=== PATIENT | female | born 1955 | race Caucasian/White ===

== ENCOUNTER 2023-03-18 12:45 | Outpatient (OUT) | payer OTHER, SELFPAY ==
--- NOTE | 2023-03-18 12:56 | PM.CN ---
Consult Note: HPI Data of Consult Patient: new to practice Requesting Physician: Pascale Joe NP Primary Care Provider: FELIBERTO RODRIGUEZ Consult Narrative Reason for consult: New Patient Narrative: Marcela Santiago a pleasant 68 year old female presents for evaluation and management of chronic low back pain. Patient noticed chronic low back pain worsening over the last few weeks. She went to her family doctor who gave her a steroid and muscle relaxer, she responded well to the steroid but no relief from the muscle relaxer. Today rating pain 5-6/10 in low back, worse on the right side, with bilateral leg weakness and intermittent radiculopathy. cc:: CC: Pascale Joe NP Review of Systems ROS Status of ROS 10 or more systems reviewed and unremarkable except as noted in history and below Musculoskeletal Reports: back pain Exam Constitutional Documenting provider has reviewed patient's vital signs: yes Common normals: no apparent distress, oriented x3, healthy appearing, alert and well nourished General appearance: cooperative HENMT Common normals: normocephalic, hearing grossly normal bilaterally and moist oral mucous membranes Head and scalp: normocephalic Eye Common normals: PERRL Pupil: PERRL Neck & C-Spine Common normals: full ROM General: normal visual inspection Chest Common normals: inspection of chest normal Respiratory Common normals: normal respiratory effort, no retractions and no use of accessory muscles Back & Pelvis Common normals: no thoracic nor lumbar tenderness Thoracic spine/upper back: normal to inspection and thoracic ROM normal Lumbar spine/lower back: normal to inspection, ROM limited, pain with ROM and straight leg raise negative bilaterally Sacroiliac joints: SI joints normal Other: negative facet loading no radiculopathy upon exam BLE 5/5 Neuro Common normals: oriented x3, CN's II-XII intact bilaterally, moves all extremities, no focal motor deficits, no sensory deficits noted and deep tendon reflexes 2+ bilaterally Sensorium/orientation: alert Motor exam: strength 5/5 throughout and no movement abnormalities noted Psych Common normals: mental status grossly normal, thought process normal, cooperative, affect normal, speech normal and activity/motor behavior normal Speech: normal speech Thought process: normal thought process Assessment and Plan Assessment and Plan (1) Low back pain: (2) Lumbar spondylosis: (3) Osteoarthritis of spine with radiculopathy, lumbar region: (4) Encounter for medication monitoring: (5) Obesity: Assessment and Plan: The patient was counseled that proper dietary changes and consistent participation in a home exercise plan can lead to weight loss. Weight loss can help to improve functionality in patients with chronic pain.? (6) GERD (gastroesophageal reflux disease): Plan -PT for low back pain with radiculopathy -consider MRI in the future if fails to respond to PT, will review xray from PCP when made available. 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
== END 2023-03-18 12:46 | disposition home or self-care (01) ==
LOC: PM 12:46
PROVIDERS: PCP Family Medicine; Visit Provider Nurse Practitioner
DX: M54.50 Low back pain, unspecified (principal); M47.26 Other spondylosis with radiculopathy, lumbar region; Z51.81 Encounter for therapeutic drug level monitoring; Z79.899 Other long term (current) drug therapy; E66.9 Obesity, unspecified; K21.9 Gastro-esophageal reflux disease without esophagitis
CPT/HCPCS: G0463

== ENCOUNTER 2023-05-12 13:11 | Outpatient (OUT) | payer OTHER, SELFPAY ==
--- NOTE | 2023-05-12 13:28 | P.CN_ITS ---
Consult Note: HPI Data of Consult Patient: new to practice Requesting Physician: Pascale Joe NP Primary Care Provider: FELIBERTO RODRIGUEZ Consult Narrative Reason for consult: f/u Narrative: Marcela Santiago a pleasant 68 year old female presents for evaluation and management of chronic pain. Pain has greatly improved with PT and is now longer in low back or right thigh, at this time she notices mild 3/10 pain in right buttock ache . Pain is worse in the evening, improved with stretching and tylenol. cc:: CC: Pascale Joe NP Review of Systems 2 ROS0 Status of ROS 10 or more systems reviewed and unremark able except as noted in history and below PFSH PFSH Medical History Heartburn ?R12 - Heartburn (ICD-10) Anxiety ?F41.9 - Anxiety disorder, unspecified (ICD-10) Kidney stones ?N20.0 - Calculus of kidney (ICD-10) Surgical History History of foot surgery ?Z98.890 - Other specified postprocedural states (ICD-10) Hx of cholecystectomy ?Z90.49 - Acquired absence of other specified parts of digestive tract (ICD- 10) History of appendectomy ?Z90.49 - Acquired absence of other specified parts of digestive tract (ICD- 10) History of knee replacement ?Z96.659 - Presence of unspecified artificial knee joint (ICD-10) Meds Home Medications and Allergies Home Medications Medication Instructions Recorded Confirmed Type alendronate 70 mg tablet 70 mg PO QWEEK 03/19/23 03/19/23 History buspirone 5 mg tablet 5 mg PO BID 03/19/23 03/19/23 History cholecalciferol (vitamin D3) 125 5,000 unit PO DAILY 03/19/23 03/19/23 History mcg (5,000 unit) tablet (Vitamin D3) lisinopril 20 mg tablet 10 mg PO BID 03/19/23 03/19/23 History Allergies Allergy/AdvReac Type Severity Reaction Status Date / Time No Known Drug Allergies Allergy Verified 03/19/23 10:16 Exam Constitutional Documenting provider has reviewed patient's vital signs: yes Common normals: no apparent distress, oriented x3, healthy appearing, alert and well nourished General appearance: cooperative [facility] Common normals: normocephalic, hearing grossly normal bilaterally and moist oral mucous membranes Head and scalp: normocephalic Eye Common normals: PERRL Pupil: PERRL Neck & C-Spine Common normals: full ROM General: normal visual inspection Chest Common normals: inspection of chest normal Respiratory Common normals: normal respiratory effort, no retractions and no use of accessory muscles Back & Pelvis Common normals: no thoracic nor lumbar tenderness Thoracic spine/upper back: normal to inspection and thoracic ROM normal Lumbar spine/lower back: normal to inspection, ROM limited and straight leg raise negative bilaterally Sacroiliac joints: SI joints normal Other: negative facet loading no radiculopathy upon exam BLE 5/5 Back image (female): 2 1. Extremity Common normals: normal to inspection and full ROM Neuro Common normals: oriented x3, CN's II-XII intact bilaterally, moves all extremities, no focal motor deficits, no sensory deficits noted, deep tendon reflexes 2+ bilaterally and gait normal Sensorium/orientation: alert Motor exam: strength 5/5 throughout and no movement abnormalities noted Psych Common normals: mental status grossly normal, thought process normal, cooperative, affect normal, speech normal and activity/motor behavior normal Speech: normal speech Thought process: normal thought process Assessment and Plan Assessment and Plan (1) Neuritis: Assessment and Plan: right middle cluneal nerve neuropathy (2) GERD (gastroesophageal reflux disease): (3) Obesity: (4) Lumbar spondylosis: (5) Lumbar radiculopathy: Plan continue PT and HEP continue PRN tylenol f/u PRN or if pain worsens/returns
== END 2023-05-12 13:12 | disposition home or self-care (01) ==
PROVIDERS: PCP Family Medicine; Visit Provider Nurse Practitioner
DX: M79.2 Neuralgia and neuritis, unspecified (principal); K21.9 Gastro-esophageal reflux disease without esophagitis; E66.9 Obesity, unspecified; M47.816 Spondylosis without myelopathy or radiculopathy, lumbar region; M54.16 Radiculopathy, lumbar region
CPT/HCPCS: G0463

== ENCOUNTER 2023-09-30 11:41 | Outpatient (OUT) | payer OTHER, SELFPAY ==
--- NOTE | 2023-09-30 11:43 | MM_ITS ---
Patient Name: IAN MONACO MR#: [id number] : 1955 Exam Date: 09/30/2023 Ordering Doctor: DR FELIBERTO RODRIGUEZ M.D. RADIOLOGY REPORT PROCEDURE: MM TOMOSYNTHESIS SCREENING BI COMPARISON: MG MAMM SCREEN 3D ANA ROSA CAD, 11/12/2020. MG MAMM SCREEN ANA ROSA W CAD, 11/02/2019. MG MAMM SCREEN ANA ROSA W CAD, 11/30/2017. MG MAMM ANA ROSA SCRN W CAD DIG, 10/25/2006. INDICATIONS: Screening Calculator Name NCI Breast Cancer Risk Assessment Tool 5 Year Breast Cancer Risk 1.90% Lifetime Breast Cancer Risk 6.20% Personal Breast Cancer No Personal Ovarian Cancer No Treatments None Family Cancers Grandmother-paternal with breast cancer at age 99; Father with lung cancer at age 42. LOCATION: [facility] BREAST COMPOSITION: There are scattered areas of fibroglandular density. FINDINGS: DIAGNOSTIC CATEGORY 2--BENIGN FINDING: RIGHT BREAST: No significant suspicious finding. Scattered benign-appearing lymph nodes are present. No significant change has occurred. LEFT BREAST: No significant suspicious finding. Scattered benign-appearing lymph nodes are present. No significant change has occurred. RECOMMENDATIONS: ROUTINE MAMMOGRAM AND CLINICAL EVALUATION IN 12 MONTHS. PLEASE NOTE: A NORMAL MAMMOGRAM DOES NOT EXCLUDE THE POSSIBILITY OF BREAST CANCER. A CLINICALLY SUSPICIOUS PALPABLE LUMP SHOULD BE BIOPSIED. Dictated by: Rick Preston M.D. on 09/30/2023 at 15:42 Approved by: Rick Preston M.D. on 09/30/2023 at 15:44
--- OUTSIDE RECORDS SUMMARY | 2023-09-30 11:48 | XMS_ITS | CCD ---
Author Organization [facility] Care Team Providers Care Ship Scaler Name Role Phone NONE, XXXX Primary Care Physician Unavailab Consuelo Benavidez Unavailable MICHAEL, DR DAO Primary Care Unavailable PAY ., DR LIAO Admitting Unavailable PAY ., DR LIAO Attending Unavailable FARHEEN, DR BELLE Hernandez Consulting Unavailable PAY ., DR LIAO Consulting Unavailable GRECHNY ., CHAVO ESPINOZA Consulting UnavailMarcela Fair Unavailable Sid Rodriguez MD Primary Care Provider [phone] SID RODRIGUEZ Referring Unavailable SID RODRIGUEZ Primary Care Unavailable BRIANA ABREU Attending Unavailable BRIANA ABREU Referring Unavailable SID RODRIGUEZ Primary Care Unavailable SID RODRIGUEZ Referring Unavailable SID RODRIGUEZ Primary Care Unavailable BRIANA ABREU Admitting Unavailable BRIANA ABREU Attending Unavailable BRIANA ABREU Attending Unavailable LAVELL GARCIA Attending Unavailable WILLY ANDRADE Referring Unavailable KORY GARCIA Attending Unavailable WILLY ANDRADE Referring Unavailable BRIANA ABREU Attending Unavailable BRIANA ABREU Attending Unavailable BRIANA ABREU Referring Unavailable ESTEPHANIA CHAMPION Attending Unavailable WILLY ANDRADE Referring Unavailable SID RODRIGUEZ Attending Unavailable BRIANA ABREU Attending Unavailable NASH CASTANEDA Attending Unavailable BRIANA ABREU Attending Unavailable NI GOINS Attending Unavailable BRIANA ABREU Referring Unavailable RAF CA Attending Unavailable CHRISTIAN BARR Attending Unavailable WILLY ANDRADE Referring Unavailable BRIANA ABREU Attending Unavailable BRIANA ABREU Referring Unavailable LAVELL GARCIA Attending Unavailable WILLY ANDRADE Referring Unavailable CHRISTIAN BARR Attending Unavailable WILLY ANDRADE Referring Unavailable NASH CASTANEDA Attending Unavailable ESTEPHANIA CHAMPION Attending Unavailable WILLY ANDRADE Referring Unavailable KORY GARCIA Attending Unavailable WILLY ANDRADE Referring Unavailable BRIANA ABREU Attending Unavailable NASH CASTANEDA Attending Unavailable SID RODRIGUEZ Attending Unavailable Medications Current Medications Medication Drug Class(es) Dates Sig (Normalized) Sig (Original) acetaminophen 500 mg oral capsule (3 sources) Acetaminophen 50 0 MG capsule Take by mouth every 6 (six) hours if needed. 0 Active Acetaminophen Ac tive [id number] 200 actuat albuterol 0.09 mg/actuat metered dose inhaler (1 source) beta2-Adrenergic Agonist Start: 08-17-2022 take 2 puff(s) by inhalation four times daily as needed Albuterol Sulfate HFA 108 (90 Base) MCG/ACT 2 puffs Inhalation 4 times a day prn Aug, Active alendronic acid 70 mg oral tablet (3 sources) Bisphosphonate Start: 04-12-2023 alendronate (Fosamax) 70 MG tablet Indications: Osteoporosis, unspecified osteoporosis type, unspecified pathological fracture presence ([facility]) Take 1 tablet (70 mg) by mouth every 7 (seven) days. 12 tablet 3 04/12/2023 Active Alendronate Sodi um Active azithromycin 250 mg oral tablet (1 source) Macrolide Antimicrobial Start: 08-17-2022 Azithromycin 250 MG 2 tablet on the first day, then 1 tablet daily for 4 days Orally Once a day for 5 day(s) Aug, Active busPIRone hydrochloride 5 mg oral tablet (3 sources) Start: 04-12-2023 End: 05-16-2024 take 1 tablet by mouth in the morning, then take 1 tablet by mouth in the evening, then take 1 tablet by mouth at bedtime busPIRone (Buspar) 5 MG tablet Indications: Anxiety Take 1 tablet (5 mg) by mouth in the morning and 1 tablet (5 mg) in the evening and 1 tablet (5 mg) before bedtime. 300 tablet 3 04/12/2023 05/16/2024 Active busPIRone HCl Ac tive cholecalciferol 0.125 mg oral capsule (1 source) Vitamin D Start: 04-12-2023 take 1 capsule by mouth once in the morning cholecalciferol (Vitamin D-3) 125 MCG (5000 UT) capsule Indications: Vitamin D deficiency Take 1 capsule (125 mcg) by mouth in the morning. 100 capsule 3 04/12/2023 Active diclofenac sodium 0.01 mg/mg topical gel (1 source) Nonsteroidal Anti-inflammatory Drug diclofenac sodium (Voltaren) 1 % gel Apply topically 3 (three) times a day. 0 Active hydroCHLOROthiazide 12.5 mg / lisinopril 20 mg oral tablet (3 sources) Thiazide Diuretic, Angiotensin Converting Enzyme Inhibitor Start: 04-12-2023 End: 05-16-2024 take 1 tablet by mouth in the morning lisinopril-hydroCHL OROthiazide 20-12.5 MG tablet Indications: Primary hypertension (CMS/HCC) Take 1 tablet by mouth in the morning. 100 tablet 3 04/12/2023 05/16/2024 Active take 1 tablet by kayla th every twenty-four hours Lisinopril-hydroCHLOROthiazide 20-12.5 M G 1 tablet Orally Once a day for 30 day(s) Active lisinopril 20 mg oral tablet (3 sources) Angiotensin Converting Enzyme Inhibitor Start: 04-12-2023 take 1 tablet by mouth in the morning lisinopril 20 MG tablet Indications: Primary hypertension (CMS/HCC) Take 1 tablet (20 mg) by mouth in the morning. 100 tablet 3 04/12/2023 Active take 1 tablet by kayla th every twenty-four hours Lisinopril 20 MG 1 tablet Orally Once a day for 30 day(s) Active predniSONE 20 mg oral tablet (1 source) Start: 08-17-2022 take 1 tablet by mouth every twelve hours predniSONE 20 MG 1 tablet Orally bid for 5 day(s) Aug, Active Vitamin C 500 MG (1 source) Vitamin C 500 MG as directed Orally Active Vitamin D (2 sources) Vitamin D Active Zinc (1 source) take 1 tablet by mouth once daily Zinc 100 MG 1 tablet Orally Once a day Active Completed/Discontinued Medications Medication Drug Class(es) Dates Sig (Normalized) Sig (Original) 1 ml methylPREDNISolone acetate 40 mg/ml injection (2 sources) Corticosteroid Start: 4 End: 4 methylPREDNISolone acetate (DEPO-Medrol) injection 40 mg Problems Active Problems Problem Classification Problem Date Documented Date Episodic/Chronic Acquired foot deformities (1 source) Acquired hallux rigidus; Translations: [Hallux rigidus, unspecified foot] Onset: 09-15-2022 09-15-2022 Chronic Adjustment disorders (1 source) Adjustment disorder with anxious mood; Translations: [Adjustment disorder with anxiety] Onset: 09-15-2022 09-15-2022 Chronic Chronic obstructive pulmonary disease and bronchiectasis (1 source) Bronchitis, not specified as acute or chronic Episodic E Codes: Fall (1 source) Fall on same level from slipping, tripping and stumbling with subsequent striking against unspecified object, initial encounter; Translations: [FALL SAME LVL SLIP STRK UNS OBJ INT] Onset: 06-01-2022 Episodic Esophageal disorders (2 sources) Gastro-esophageal reflux disease with esophagitis; Translations: [Gastro-esophageal reflux disease with esophagitis] Onset: 10-08-2020 09-15-2022 Chronic Essential hypertension (2 sources) Essential hypertension; Translations: [Essential (primary) hypertension] Onset: 09-15-2022 09-15-2022 Chronic Genitourinary symptoms and ill-defined conditions (2 sources) Dysuria; Translations: [Dysuria] Episodic Menopausal disorders (1 source) Decreased estrogen level; Translations: [Other primary ovarian failure] Onset: 09-15-2022 09-15-2022 Chronic Nonspecific chest pain (3 sources) Other chest pain; Translations: [OTHER CHEST PAIN] Onset: 05-29-2022 Episodic Nutritional deficiencies (1 source) Vitamin D deficiency; Translations: [Vitamin D deficiency, unspecified] Onset: 09-15-2022 09-15-2022 Chronic Osteoarthritis (3 sources) Arthritis of left knee; Translations: [Unilateral primary osteoarthritis, left knee] Onset: 09-15-2022 06-22-2023 Chronic Osteoporosis (1 source) Osteoporosis; Translations: [Age-related osteoporosis without current pathological fracture] Onset: 09-15-2022 09-15-2022 Chronic Other acquired deformities (1 source) Contracture of joint of right ankle; Translations: [Contracture, right ankle] Onset: 09-15-2022 09-15-2022 Chronic Other aftercare (1 source) Other retirement (current) drug therapy; 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] Onset: 06-01-2022 Episodic Other connective tissue disease (1 source) Trigger thumb of right hand; Translations: [Trigger thumb, right thumb] Onset: 04-12-2023 04-12-2023 Episodic Other connective tissue disease (1 source) Ganglion of flexor tendon sheath of finger; Translations: [Ganglion, right hand] Onset: 04-12-2023 04-12-2023 Episodic Other nervous system disorders (1 source) Carpal tunnel syndrome of right wrist; Translations: [Carpal tunnel syndrome, right upper limb] Onset: 09-15-2022 09-15-2022 Chronic Other nervous system disorders (1 source) Sciatic nerve lesion; Translations: [Lesion of sciatic nerve, unspecified lower limb] Onset: 09-15-2022 09-15-2022 Chronic Other non-traumatic joint disorders (1 source) Pain in left knee; Translations: [Pain in joint, lower leg] 06-22-2023 Episodic Other skin disorders (1 source) Nailbed deformity; Translations: [Other nail disorders] Onset: 04-12-2023 04-12-2023 Episodic Other upper respiratory disease (1 source) Allergic rhinitis due to pollen; Translations: [Allergic rhinitis due to pollen] Onset: 05-18-2017 10-08-2022 Chronic Prolapse of female genital organs (1 source) Uterine prolapse; Translations: [Uterovaginal prolapse, unspecified] Onset: 09-15-2022 09-15-2022 Chronic Spondylosis; intervertebral disc disorders; other back problems (2 sources) Degeneration of lumbar intervertebral disc; Translations: [Other intervertebral disc degeneration, lumbar region] Onset: 09-15-2022 09-15-2022 Chronic Superficial injury; contusion (1 source) Contusion of right front wall of thorax, initial encounter; Translations: [CONTUS RT FRONT WALL THORAX INITIAL] Onset: 06-01-2022 Episodic Unclassified (1 source) right trigger thumb, right thumb mass Onset: 05-05-2023 Past or Other Problems Problem Classification Problem Date Documented Da te Episodic/Chronic Calculus of urinary tract (1 source) History of calculus of kidney; Translations: [Personal history of urinary calculi] Onset: 07-26-2015 10-08-2022 Episodic Other bone disease and musculoskeletal deformities (1 source) Osteopenia; Translations: [Other specified disorders of bone density and structure, unspecified site] Onset: 07-26-2015 10-08-2022 Episodic Other hematologic conditions (1 source) H/O: anemia - iron deficient; Translations: [Personal history of diseases of the blood and blood-forming organs and certain disorders involving the immune mechanism] Onset: 07-26-2015 10-08-2022 Episodic Spondylosis; intervertebral disc disorders; other back problems (2 sources) Acute back pain with sciatica; Translations: [Lumbago with sciatica, right side] Onset: 09-15-2022 09-15-2022 Episodic Results Test Name Value Interpretation Reference Range Facility BASIC METABOLIC PANLon 09-08 Anion gap [Moles/Vol] 11 mmol/L Normal 5-15 [facility] Comment on above: Performed By: #### C BCA, BMP #### [facility] ([id number]) [address], [address] [place] [address] Calcium [Mass/Vol] 9.7 mg/dL Normal 8.5-10.5 [facility] Comment on above: Performed By: #### C BCA, BMP #### [facility] ([id number]) [address], [address] [place] [address] Chloride [Moles/Vol] 104 mmol/L Normal 98-109 [facility] Comment on above: Performed By: #### C BCA, BMP #### [facility] ([id number]) [address], [address] [place] [address] CO2 [Moles/Vol] 27 mmol/L Normal 22-32 [facility] Comment on above: Performed By: #### C BCA, BMP #### [facility] ([id number]) [address], [address] [place] [address] Creatinine [Mass/Vol] 0.82 mg/dL Normal 0.40-1.00 [facility] Comment on above: Result Comment: METH OD TRACEABLE TO IDMS STANDARD Performed By: #### C BCA, BMP #### [facility] ([id number]) [address], [address] [place] [address] GFR/1.73 sq M.predicted among non-blacks MDRD (S/P/Bld) [Vol rate/Area] 78 mL/min/{1.73_m2} Normal >59 [facility] Comment on above: Result Comment: Reported eGFR is based on the CKD-EPI 2020 equation that does not use a race coefficient. Performed By: #### C BCA, BMP #### [facility] ([id number]) [address] [address] [place] [address] Glucose [Mass/Vol] 105 mg/dL High 65-99 [facility] Comment on above: Performed By: #### C BCA, BMP #### [facility] ([id number]) [address] [address] Potassium [Moles/Vol] 3.9 mmol/L Normal 3.5-5.0 [facility] Comment on above: Performed By: #### C BCA, BMP #### [facility] ([id number]) [address] [address] [place] [address] Sodium [Moles/Vol] 142 mmol/L Normal 134-146 [facility] Comment on above: Performed By: #### C BCA, BMP #### [facility] ([id number]) [address] [address] [place] [address] Urea nitrogen [Mass/Vol] 17 mg/dL Normal 5-27 [facility] Comment on above: Performed By: #### C BCA, BMP #### [facility] ([id number]) [address] [address] [place] [address] CBC AND AUTO DIFFon 09-09-19 24 ABSOLUTE BASOPHIL 0.0 X10E9/L Normal 0.0-0.2 [facility] Comment on above: Performed By: #### C BCA, BMP #### [facility] ([id number]) [address], [address] [place] [address] ABSOLUTE NEUTROPHIL 4.4 X10E9/L Normal 1.5-6.6 [facility] Comment on above: Performed By: #### C SHANTELLE, BMP #### [facility] ([id number]) [address] [place] [address] Basophils/100 WBC (Bld) 0.6 % Normal [facility] Comment on above: Performed By: #### C SHANTELLE, BMP #### [facility] ([id number]) [address] [place] [address] Eosinophils (Bld) [#/Vol] 0.0 10*3/uL Normal 0.0-0.4 [facility] Comment on above: Performed By: #### C SHANTELLE, BMP #### [facility] ([id number]) [address] [place] [address] Eosinophils/100 WBC (Bld) 0.7 % Normal [facility] Comment on above: Performed By: #### C SHANTELLE, BMP #### [facility] ([id number]) [address] [place] [address] Erythrocyte distribution width (RBC) [Ratio] 12.2 % Normal 11.5-15.0 [facility] Comment on above: Performed By: #### Hola PEPPER, BMP #### [facility] ([id number]) [address] [place] [address] Hematocrit (Bld) [Volume fraction] 38.6 % Normal 35-47 [facility] Comment on above: Performed By: #### C SHANTELLE, BMP #### [facility] ([id number]) [address] [place] [address] Hemoglobin (Bld) [Mass/Vol] 13.0 g/dL Normal 11.7-15.5 [facility] Comment on above: Performed By: #### C BCA, BMP #### [facility] ([id number]) [address] [place] [address] Lymphocytes (Bld) [#/Vol] 1.3 10*3/uL Normal 1.0-3.5 [facility] Comment on above: Performed By: #### C BCA, BMP #### [facility] ([id number]) [address] [place] [address] Lymphocytes/100 WBC (Bld) 20.6 % Normal [facility] Comment on above: Performed By: #### C SHANTELLE, BMP #### [facility] ([id number]) [address], [address] [place] [address] MCH (RBC) [Entitic mass] 30.4 pg Normal 27-34 [facility] Comment on above: Performed By: #### C SHANTELLE, BMP #### [facility] ([id number]) [address], [address] [place] [address] MCHC (RBC) [Mass/Vol] 33.7 g/dL Normal 32-36 [facility] Comment on above: Performed By: #### C SHANTELLE, BMP #### [facility] ([id number]) [address] [place] [address] MCV (RBC) [Entitic vol] 90 fL Normal 80-100 [facility] Comment on above: Performed By: #### C BCA, BMP #### [facility] ([id number]) [address], [address] [place] [address] Monocytes (Bld) [#/Vol] 0.4 10*3/uL Normal 0-0.9 [facility] Comment on above: Performed By: #### C BCA, BMP #### [facility] ([id number]) [address], [address] [place] [address] Monocytes/100 WBC (Bld) 7.3 % Normal [facility] Comment on above: Performed By: #### C SHANTELLE, BMP #### [facility] ([id number]) [address] [facility] [address] [place] [address] Neutrophils/100 WBC (Bld) 70.8 % Normal [facility] Comment on above: Performed By: #### Hola PEPPER, BMP #### [facility] ([id number]) [address], [address] [address] Platelet mean volume (Bld) [Entitic vol] 8.1 fL Normal 7-12 [facility] Comment on above: Performed By: #### Hola PEPPER, BMP #### [facility] ([id number]) [address], [facility] [address] [place] [address] Platelets (Bld) [#/Vol] 277 10*3/uL Normal 150-450 [facility] Comment on above: Performed By: #### Hola PEPPER, BMP #### [facility] ([id number]) [address], [facility] [address] [place] [address] RBC COUNT 4.28 X10E12/L Normal 3.80-5.20 [facility] Comment on above: Performed By: #### Hola PEPPER, BMP #### [facility] ([id number]) [address], [address] [address] WBC (Bld) [#/Vol] 6.2 10*3/uL Normal 4.0-11.0 [facility] Comment on above: Performed By: #### Hola PEPPER, BMP #### [facility] ([id number]) [address], [facility] [address] [place] [address] L Inj/Asp: L kneeon 06-22-19 24 Briana Abreu, DO 06/22/2023 3:54 PM L Inj/Asp: L knee on 06/22/2023 2:19 PM Indications: pain Details: 21 G needle, anterolateral approach Medications: 40 mg methylPREDNISolone acetate 40 MG/ML Outcome: tolerated well, no immediate complications UTILIZING ASEPTIC TECHNIQUE PT GIVEN INJECTION IN LEFT KNEE, NEUROVASC INTACT S/P INJ, TOLERATED WELL Procedure, treatment alternatives, risks and benefits explained, specific risks discussed. Consent was given by the patient. [facility] Surgical Pathologyon 023 Surgical Pathology Normal [facility] Comment on above: Result Comment: [facility] [address] [place] [address] Surgical Pathology Consultation Patient Name:MARCELA SANTIAGO:1955 (Age: 68)Gender:FTaken:05/05/2023Reported:05/14/2023hysician(s):Briana Abreu DO ([phone])Copy To: Rec. #:[id number]: #[id number] Final Pathologic Diagnosis Right hand digit, mass, excision: Pigmented villonodular synovitis, localized Report Electronically Signed Out guccik/05/14/2023Shanna Stern MD [place] [address], License number: [id number]. Clinical History Right trigger thumb, right thumb mass. 1. Tumor thumb. Gross Description Received in formalin labeled damien SANTIAGO, digit R is a flores-meehan to pink-yellow, ovoid rubbery nodule, 1.4 x 1.2 x 0.6 cm. The specimen is inked black and sectioned to reveal flores-white to yellow, rubbery, dull and uniform cut surfaces. The specimen is entirely submitted in a single cassette. (1, ns, [id number], m2) LASHAWN mcguire/05/06/2023SSI Specimen(s) Received Right hand digit Fee Codes(s): 1; 72003 XR RIBS RT PA Randy 3 XR RIBS RT PA CH EXAMINATION: XR RIBS RT PA CH HISTORY: Bone injury ; right rib pain after falling; pain under right breast COMPARISON: No relevant comparison available. FINDINGS: LUNGS: No significant pulmonary parenchymal abnormalities. PLEURA: No pneumothorax, effusion, or pleural thickening. MEDIASTINUM: No visible mass or adenopathy. CARDIAC: No cardiomegaly or cardiac silhouette abnormality. RIBS: Normal. No significant arthropathy or acute abnormality. OTHER: Negative. IMPRESSION: 1. No appreciable rib abnormality. 2. No acute cardiopulmonary process. Electronically authenticated by: BELLE ZHONG Date: 2022-05-29 11:45 Normal [facility] Coding Summary.on 09-24-2021 Coding Summary. [id number] Gh0 bWw+PGhlYWQ+OA9ZQZSiM48 aqXAxdO0JR2sDTH9OSNXHHQ TCXA0PFW3bpXS5RLboQ2Dhi iAv BnntjKXmGE42KHk7GNH9gTn qQAuhbB2afNCwI5n0WkFxVN 94vH60KLmqIHDtVgO4RmGjd jsgbWFy U2ddGtBovLQbGit+PHRhYmx lIHdpZHRoPScxMDAlJyBzdH drTV3gBa4mKQWaPBDqvCosw HNlOiBj m4nhFTUyWEmmMU9fgEjmY6G pwIP4EERfu6a2Uk36oLC+PH BuDDS2qBkoFGhby042ZgTbx 4zdEOR0 sNAhNOdcKVV8Y59mp1B1WYE bPADdXIK5tWE4oW4hmOouyx nsM0LvyRAzWkD8XSC6nSDij Y3yrJmo ixuleV0hGjb+H30QWL8ILVV MFQ6GDix7M5FtAqfvuXV+PC 25VWZfLE83sIKhbVQsr3wep Rr3WsYb HTJpEAB9bDbiCLdsw0IeGWO bL66mnAKab8M6TJKfoHxdeY JpLaQhuII0wF3eXJoulovtq 2hvdzsn Xvknz3nqti39vA34B62sWWq tIXUaVXL9JKBsMNObrPsimk 1ulS5sAk7+UPceu7ztg2pfo Lg4EwUt YCDkreRfuKbtPSE2z4KuWg7 1U4TmpRpwy9UmPbq1un87fI Yjp0R1qEW1PLqwRCMttA6qW WxlZnQ6 JUBkEySalB48pUWiFZswBg3 otRbvkKamED7nAHCucrhoCT OesY8gJFQmbCWmxSjwDA7yH TBpbjtm d886WyVgLZX1OPQbbGMjU2U ajT4kDaJfLEAaCFBzF9UlzU HjHThmE887LJndSaV6JGOse eTtU4Go PMWahFjrTcG1d3T5Yf8Nt9C gvvqcEND6DNtxJEY2EvQnSi HkEpQ5M5LfLbc9EGSioAoxM D4zF5Jb GSWlvzwpczrujTU2UOBmCCK bnO80sTCqNFspPq6ye6T3r5 68CARzUVUwgN82Py5poZecH TBwdCBU dP8kbfile9istupePiSaYBW jKJh6XNr7LDLwdWlxJjQyJB B3HmQ3GMA1rTIhtF7mkXuaz ffgxR7t Oyc+D84iyX9gUBE7SQI5mds uNUOvviMeFI22BN42Y6EiLc wvdGFibGU+PGRpdiBzdHlsZ D2nTvUc m3fib4MkYCmvQ2OvGEAySMu jCqb3WUXxRJQ8bTP4qA4wLH EdCJitw5W5uWW6P1ZafhEqp r1tj4ng UGOvYAlaC64lrTGts9G1TAC bbTO6NMVapZhqXvEifG18Ks c+OMGrwUvlq5UzZqtuh1leu 7uzdIe5 LcGkGBLogpImwLxyLKP1w8C dMo45P58mCRbmTJHwIARtBT LdLKVcdTvyok3jaA8fGp5+P GNvbCB3 iJK2zI9nKMLyPsW1LHokS49 0MeFkqJEjXfzah4qog5iisT u4PkLoAPMjxeXxkQirQQB2r 9XwNp74 G98xQOosEBYqNSMxVQXiFIE fwMhsqb4jqJ2cKc3+PC9jb2 tljn40tF32hWJ+YPLjBWD7y WxlPSdw FAHeiZ2dDBwiZgM1PYWkTlB rfY82hQSpNHlaOw1wxWtrvU ecDO8mCZFvjlocd461QtXvl 2xkIDEw sZEiBZclEYW0I55zm3D6WBG hMLCzCJH2aPV8hP7quLqyio ogbGVmdDsgdmVydGljYWwtY IdsB355 IHRvcDsnPlBhdGllbnQgTmF pMMk0S0GbDew0UDPixNhfUO 6opBAbSVmzWq9lfZuyjOqsY F3bJBIa pbsoa499DiXis3thZFQitHJ rXRljGJX1O96td7Y7NDLfQA VcWAL3tYM7zP9hkYczaizdq GVmdDsg ikLhmUrhEFrgIDbkV918JDA ajOkdWjNtgdLfGDFfsDZ3RU 73NZ02zBAvl3Y2sDR2L3WpD GRpbmct knwnyAD9CHErFBPvdI45Jj7 wxAcjXh6aVORyQOI1OLArvV NnF4HvxV0rAyVxYYPhCTMjS 3RleHQt NQoaV636WOwjUhK3QLFvqwZ rN6KbYNCvcBlpMbN3d3P8Vh 2UP3D3OU70FN85nIOex7V2l OJ1Y2Ob VTUelvomybdnaYF1OEFdNUM ioU56Eo7saFvkGq6rXCBwCX P3CQQfsBUqW0XyqI9sFbBxI DAwMDAw T3MxrYYtIQfxX804EZdcNkR 1QPFwfoViC4YcKCKvbYxtQk U4n9A3Qw2VZUr4GN29CV15o EBss7R8 iAE8U3HiFEDorcfclgshjNJ 3RPFfZFZnhI16Ul8zcOkhXp 7yGKObHQX4LVNgbCHkS4Azm J3kZsDs AQMlIQOaK9SmvOUiUElzY47 3WYriJlU1RDNqkeBgZ8FrFK WqvEmgPrO8u8T7Bx5FMNOeQ E05AFP6 yKR2JP10OM51J9TrKhxemEH ibGU+PHRhYmxlIHdpZHRoPS wuHKQiHfNcrBtvYJ3iKw2vT GVyLWNv wGwyzJYoHdEtb1zgQUVfXFc dQC0uuBmbN0JwgYT8NGHiy9 t5Tx45X68qH6TqaXL+PGNvb CI9yFQ8 nY6hRhRyOzP8SNlzE401ZmY yuCBzOkboc7mwn8nudKb7Mg V4KXOsjtTewTyxYVJ3e7VbB c39I83o IHdpZHRoPSIxNSUiIHZhbGl jpz8wdI0ySb1+YMGmlTK5bK N0oU8tSePkEgZ1KLjtG619P nRvcCIv Eakkc6eox2wwpPj2IqVzIJI jlgGkeBbuEZS5r6CvJj69T2 IbpQoet4ErPbf5yj34rFGef 1P0jYD1 L6PbOGZowrwhfWOksPwiMM4 nQNCfxofjFFKlaJ5hXMSxC5 o0RuJbCsP7MNzdS1VjiyC2M DEwcHQg ERzkBFB6N28oh8O8WBImPQJ cAZI4wPZ4nO1yeYydkyyvxS VmdDsgdmVydGljYWwtYWxpZ 246IHRv aJeiNURrnX5mDHXrbMMtdTm jKP7eJKDhfmlyIy0VIJ0RZR QMOK0nJbkshHH+ITQbYHX8r WxlPSdw CZUprO3cXETdH6q6IxIyLkX 2QLxuP7ZdDURpjbdpVa12nU 1iHwOeBuD1CAkqG7FcreY0O DEwcHQg QSvpVGF6R78mm0A3MGVyVBS jZMM9gLH7yS6vyQawrvdllY VmdDsgdmVydGljYWwtYWxpZ 246IHRv tIbvVpF0AaWiPqJ7QJK7P6D fJjp1ROYcuNdpSY3zlTKbMI pnQd6nuVhwrLgwWA3dDAEra jtwYWRk jL4oLHBicTQqbFciMP3nIKM rpqnna192GzEqROT0QHGveC FzV8QjaJ0mNuRpAHEgGZQxA 3RleHQt OTqaC927QJodUyY9IYUtjwQ yS8CfWVHkaGrgStZ1k7O9Em 42NiBZZWFyczwvdGQ+PHRkI CS0bIkl KUebKSJntP0eGEXnY7i2JyV jPvP7YPdaD2JxOVHgqzgwIj 65rS8wRqWhNmF9HTbdQ6Iiy xP0WFUe mNRqQBafPMK7H70ma8G2EOK sHTOrSFG1sRK9rR3hbFojuh ogbGVmdDsgdmVydGljYWwtY NujF982 IHRvcDsnPkZlbWFsZTwvdGQ +OBSzPCT8tUjfCSujEBXljE 5xXIJeF1q2DbIkVcR8GObwG 3BhZGRp ysxbPw52uJ8vAlHdWhW7YAc aT7BajlZ7CPFwhURyDVawLO B2A44vm3G6UNSaCPZmUXO7g SJ8xU3h bGlnbjogbGVmdDsgdmVydGl uQVyhADsxQ667CEMhyBshTv xaQwPUtq5mPN2eLflphTQ+P H85wk41 K0CwKkowAcb3QMHxLNC1mSM 5oA6tIQDsQXzlp7F7oHZ7U3 FeaaXkwh6nj7dyHARgKRceQ 29sbGFw r5H8DJMhsXH0BIOgvVheVrK lwU18Lix+JUXmdOsse0YgIb knj5dnm1qmxJa2OkZtRKKgm mFsaWdu NLP8k6TzHa63P41mJJojYHC vNDMnGMHrHULudFjeaa3ljC 9wIi8+HAPcmKR4rVC7vO3yH jAlIiB2 SHduY012LoPftUAcQtwld5i mr1hloQh9UrFzSLNkwbRuhD wgBVT6r0GmKp81X3RhpGtux 1ApUex8 pl62pFKjf7G2oAZ1H6RnQTT ekkkozWXjtLavQF8lPDEtkx uyXJHhnD3lZCLqS2g2XlIgT yF0KMry I0YomyB3RZBowHLkIKXirKS PsP1mwjjme7osurrxNlHvQR VoVDw7YEj5CKQwsWkkZiHtS IQ5XcH2 YXO7bPXksC6wkHdtwuaeiR0 wOyc+MDm1k1aelRZsHI7ylS J3XX18EB19tAKik5V1pWI5Z 3BhZGRp rqtbbbwcfMZ4OGKxNYBlyK0 8Gu0kvBpkVt7dKHFqWEF7ZD FadJPfQ5CldW9uDgSwBMVeF ITuK8Yg cMXdDDccF640FLaaMjT9TJK ntcQfE5XeJOJbzYbgIjN1c9 Q4Cj3RHV13FL96WB45tFDfu 4X0dQL8 A7PgJRFfrwxrnzcgrEA5SPJ mHSUevD88Uv4ggPojCp0wJG TdNIS8WJXsfHPuI4KghZ4pP iAjMDAw FRBwP9XyiSOoQWndM032JLk mWbP2KJPvjxYqG0HeGTZkmG tkRhR2f7S0Fj2LVj05LK90P Q84uJSn c0E7oNT8X9WsUJIfdnvayez lbLT9YBXsNYCjuA81Wi5luC noIo0cUUUiDWN8LHXftATkH 5VweV5i NhDaWXBeYQHtQ3DnmSBgEGd gS632PAjmBkB0ODIwibJsE9 FtMFEnfBrxIcZ4k5X7Gn3QS Xllcjo8 C3SbSyoehFF+DY15LDNzJD8 6lYTtnTFga2xfoQh2KqDlKP NsIRA7fSffHEaoi1BlLRCrL 29sbGFw c2U6 (more content not included)... Normal [facility] Physician Orderon 09-17-2021 Physician Order [id number] D:127 Normal [facility] Vital Signs Date Time Vital Sign Value Performing Clinician Facility 08-17-2022 14:15-0400 Body height 165.1 cm Marcela Avendaño Other [facility] Other 08-17-2022 14:15-0400 Body mass index (BMI) [Ratio] 38.27 kg/m2 Marcela Avendaño Other [facility] Other 08-17-2022 14:15-0400 Body temperature 98.9 [degF] Marcela Avendaño Other [facility] Other 08-17-2022 14:15-0400 Body weight 104.33 kg Marcela Avendaño Other [facility] Other 08-17-2022 14:15-0400 Diastolic blood pressure 71 mm[Hg] Marcela Avendaño Other [facility] Other 08-17-2022 14:15-0400 Respiratory rate 18 /min Marcela Avendaño Other [facility] Other 08-17-2022 14:15-0400 SaO2% (BldA) [Mass fraction] 98 % Marcela Avendaño Other [facility] Other 08-17-2022 14:15-0400 Systolic blood pressure 139 mm[Hg] Marcela Avendaño Other [facility] Other 05-29-2022 11:05-0500 Body height 157.48 cm Consuelo De Dios Other [facility] Other 05-29-2022 11:05-0500 Body mass index (BMI) [Ratio] 41.88 kg/m2 Consuelo De Dios Other [facility] Other 05-29-2022 11:05-0500 Body temperature 97.3 [degF] Consuelo De Dios Other [facility] Other 05-29-2022 11:05-0500 Body weight 103.87 kg Consuelo De Dios Other [facility] Other 05-29-2022 11:05-0500 Respiratory rate 18 /min Consuelo De Dios Other [facility] Other 05-29-2022 11:05-0500 SaO2% (BldA) [Mass fraction] 97 % Consuelo De Dios Other [facility] Other Encounters Encounter Date Encounter Type Care Provider Facility Start: 09-28-2023 End: 09-28-2023 ambulatory SID RODRIGUEZ Not Available Start: 09-16-2023 End: 09-16-2023 ambulatory NASH CASTANEDA Not Available Start: 09-09-2023 End: 09-09-2023 ambulatory BRIANA Tony LOIS Not Available Start: 09-09-2023 End: 09-10-2023 ambulatory SID RODRIGUEZ [facility] Start: 09-09-2023 Encounter for other preprocedural examination [facility] Start: 09-09-2023 End: 09-09-2023 ambulatory BRIANA ABREU Not Available Start: 09-02-2023 End: 09-02-2023 ambulatory RAF Davin CA Not Available Start: 08-10-2023 End: 08-10-2023 ambulatory NI Lazaro GOINS Not Available Start: 07-20-2023 End: 07-20-2023 ambulatory BRIANA ABREU Not Available Start: 07-08-2023 End: 07-08-2023 ambulatory NASH CASTANEDA Not Available Start: 06-22-2023 End: 06-22-2023 ambulatory BRIANA ABREU Not Available Start: 06-22-2023 End: 06-22-2023 Office outpatient visit 25 minutes Briana Abreu DO Work Phone: [facility] Comment on above: Arthritis of left kn ee (Primary Dx); Chronic pain of left knee Start: 06-08-2023 End: 06-09-2023 ambulatory BRIANA ABREU Not Available Start: 05-27-2023 End: 05-27-2023 ambulatory BRIANA ABREU Not Available Start: 05-20-2023 End: 05-20-2023 ambulatory KORY JOSE Not Available Start: 05-18-2023 End: 05-18-2023 ambulatory LAVELL GARCIA Not Available Start: 05-13-2023 End: 05-13-2023 ambulatory BRIANA ABREU Not Available Start: 05-06-2023 End: 05-06-2023 ambulatory KORY JOSE Not Available Start: 05-05-2023 End: 05-05-2023 Evaluation and management of inpatient BRIANA ABREU [facility] Start: 05-04-2023 End: 05-04-2023 ambulatory SID RODRIGUEZ [facility] Start: 04-29-2023 End: 04-29-2023 ambulatory ESTEPHANIA CHAMPION Not Available Start: 04-22-2023 End: 04-22-2023 ambulatory CHRISTIAN BARR Not Available Start: 04-20-2023 End: 04-20-2023 ambulatory LAVELL GARCIA Not Available Start: 04-15-2023 End: 04-16-2023 ambulatory BRIANA ABREU Not Available Start: 04-15-2023 End: 04-15-2023 ambulatory BRIANA ABREU Not Available Start: 04-13-2023 End: 04-13-2023 ambulatory CHRISTIAN LUNAJC Not Available Start: 04-12-2023 End: 04-12-2023 ambulatory SID RODRIGUEZ Not Available Start: 04-06-2023 End: 04-06-2023 ambulatory ESTEPHANIA CHAMPION Not Available Start: 08-17-2022 End: 08-17-2022 ambulatory Marcela Avendaño Other [facility] Other Start: 08-17-2022 Office outpatient vi sit 15 minutes Mracela Avendaño [facility] [place] Start: 05-29-2022 Patient encounter procedure Consuelo De Dios [facility] [place] Start: 05-29-2022 End: 05-29-[address] SID RODRIGUEZ [facility] Other Start: 09-17-2021 End: 09-17-2021 Lab Drop off Nash Castaneda [facility] Procedures Date Procedure Procedure Detail Performing Clinician Start: 06-22-2023 Arthrocentesis aspir &/inj major jt/bursa w/o Briana Abreu DO Work Phone: Start: 04-07-2022 Mammography Briana drake DO Work Phone: Start: 10-01-2014 Colonoscopy Briana drake DO Work Phone: Plan of Treatment Date Care Activity Detail Author Start: 05-23-2025 Screening for malignant neoplasm of colon [facility] Start: 10-01-2024 Screening for malignant neoplasm of colon Colonoscopy [facility] Start: 10-13-2023 End: 10-13-2023 Patient encounter procedure 10/13/2023 1:00 PM EDT Office Visit [facility] [address] [place] [address] Man Gonzales MD [address] [place] [address] [facility] Start: 07-20-2023 End: 07-20-2023 Patient encounter procedure 07/20/2023 1:00 PM EST Office Visit [facility] [address] [place] [address] Briana Abreu DO [address] [place] [address] [facility] Start: 07-08-2023 End: 07-08-2023 Patient encounter procedure 07/08/2023 1:00 PM EST Procedure Visit [facility] [address] [place] [address] Nash Castaneda, DPM [address] [facility] [address] [place] [address] [facility] Start: 04-07-2023 Screening for malignant neoplasm of breast Mammogram [facility] Start: 02-14-2020 Pneumococcal Vaccine: 65+ Years (1 - PCV) Pneumococcal Vaccine: 65+ Years (1 - PCV) [facility] Start: 1955 Screening for malignant neoplasm of colon [facility] Immunizations Immunization Date Immunization Notes Care Provider Fa cili 03-04-2023 Influenza, High-dose Seasonal, Quadrivalent, Preservative Free Briana Abreu DO Work Phone: [facility] 02-24-2022 influenza, injectable, quadrivalent, preservative free Briana Abreu DO Work Phone: [facility] 04-08-2021 influenza, high dose seasonal, preservative-free Briana Abreu DO Work Phone: [facility] 02-25-2019 influenza, injectable, quadrivalent, contains preservative Briana Abreu DO Work Phone: [facility] 01-11-2019 tetanus toxoid, reduced diphtheria toxoid, and acellular pertussis vaccine, adsorbed Consuelo De Dios Other [facility] Other 04-06-2016 influenza virus vaccine, split virus (incl. purified surface antigen) Briana Abreu DO Work Phone: [facility] 05-16-2015 influenza, injectable, quadrivalent, preservative free Briana Abreu DO Work Phone: [facility] 05-16-2015 zoster vaccine, live Briana mack DO Work Phone: [facility] Payers Date Payer Category Payer Unknown [employer] [id number] 2022-Present [phone] [address] [address] [place] [address] [id number] 2020 Medicare [id number] 1959 Unknown [id number] .[id number] 1955 Unknown [id number] 2.840.1.914840.3.579.2.59 3 1955 Unknown [id number] 2.16.840.1.777999.3.579.2.12 86 1955 Unknown [id number] 2.16840.1.313133.3.579.2.12 86 1955 Unknown [id number] 2.16840.1.224342.3.579.2.12 86 1955 Unknown [id number] 2.16.840.1.225263.3.579.2.12 86 1955 Unknown [id number] 2.16.840.1.493132.3.579.2.12 86 1955 Unknown [id number] 2.16.840.1.510530.3.579.2.12 59 1955 Unknown [id number] 2.16.840.1.948183.3.579.2.12 59 1955 Unknown [id number] 2.16.840.1.493534.3.579.2.12 59 1955 Unknown [id number] 2.16.840.1.923424.3.579.2.12 59 1955 Unknown [id number] 2.16.840.1.964976.3.579.2.12 59 1955 Unknown [id number] 2.16.840.1.893089.3.579.2.12 1955 Unknown [id number] 2.16.840.1.342360.3.579.2.12 1955 Unknown [id number] 2.16.840.1.074671.3.579.2.12 59 1955 Unknown [id number] 2.16.840.1.635626.3.579.2.12 59 1955 Unknown [id number] 2.16.840.1.911700.3.579.2.12 1955 Unknown [id number] 2.16.840.1.312040.3.579.2.12 1955 Unknown [id number] 2.16.840.1.104026.3.579.2.12 1955 Unknown [id number] 2.16.840.1.908900.3.579.2.12 1955 Unknown [id number] 2.16.840.1.024588.3.579.2.12 5 Unknown [id number] 2.16.840.1.808245.3.579.2.12 1955 Unknown [id number] 2.16.840.1.515229.3.579.2.12 59 1955 Unknown [id number] 2.16.840.1.632476.3.579.2.12 59 1955 Unknown [id number] 2.16.840.1.897895.3.579.2.12 1955 Unknown [id number] 2.16.840.1.299824.3.579.2.12 1955 Unknown [id number] 2.16.840.1.015849.3.579.2.12 59 1955 Unknown [id number] 2.16.840.1.743476.3.579.2.12 1955 Unknown [id number] 2.16.840.1.126381.3.579.2.12 1955 Unknown [id number] 2.16.840.1.892067.3.579.2.12 1955 Unknown [id number] 2.16.840.1.581671.3.579.2.12 1955 Unknown [id number] 2.16.840.1.835349.3.579.2.12 59 Social History Date Type Detail Facility Tobacco smoking status [facility] Start: 04-29-2023 Sex Assigned At Female F [facility] Start: 10-08-2022 [facility] Start: 10-08-2022 Tobacco use and exposure Smokeless tobacco non-user [facility] Start: 06-22-2023 Alcohol intake Lifetime non-d trent (finding) [facility] Start: 04-29-2023 History of Social function [facility] Start: 09-17-2022 Alcohol Comment Caffeine: Angela olate, Soda [facility] Start: 1955 Sex Assigned At Not on file [facility] History of Present illness Narrative 06-22-2023 Briana Abreu, DO - 06/22/2023 1:45 PM EST Note Date & Type Note Facility 06-22-2023 History of Presen t illness Narrative Associated Order(s): L Inj/Asp: L knee Post-Procedure Diagnose(s): Arthritis of left knee Images from the original note were not included. HISTORY OF PRESENT ILLNESS: Marcela Santiago is an 68 y.o. @ female. Chief complaint LT knee s/p injx LT knee: 2 weeks s/p depo injx 06/08 without relief. LT knee pain x 2012 and gradually getting worse over time. Pain is anterior medial, She notes knee catches/locks up, usually with stairs. Sharp pain with stairs. Knee does buckle. + wake at HS, usually after a busy day. She notes prolonged sitting makes pain worse. + limp, she walks with her leg stiff. wears knee brace, taking TYL, using freeze gel. Prior treatment(s) included tried aspirin, ice, icyhot, xrays [place] [facility] 03/25/20, Depo Medrol injection 03/25/20, TYL, brace, Depo Medrol injection 04/08/2020, tried voltaren gel. Using freeze gel, Taking TYL 1000 daily, XR [place] [facility] 06/08/23, depo injx 06/08/23 MEDICATION: Current Outpatient Medications on File Prior to Visit Medication Sig Dispense Refill Acetaminophen 500 MG capsule Take by mouth every 6 (six) hours if needed. alendronate (Fosamax) 70 MG tablet Take 1 tablet (70 mg) by mouth every 7 (seven) days. 12 tablet 3 busPIRone (Buspar) 5 MG tablet Take 1 tablet (5 mg) by mouth in the morning and 1 tablet (5 mg) in the evening and 1 tablet (5 mg) before bedtime. 300 tablet 3 cholecalciferol (Vitamin D-3) 125 MCG (5000 UT) capsule Take 1 capsule (125 mcg) by mouth in the morning. 100 capsule 3 diclofenac sodium (Voltaren) 1 % gel Apply topically 3 (three) times a day. lisinopril 20 MG tablet Take 1 tablet (20 mg) by mouth in the morning. 100 tablet 3 lisinopril-hydroCHLOROthiazide 20-12.5 MG tablet Take 1 tablet by mouth in the morning. 100 tablet 3 No current facility-administered medications on file prior to visit. MEDICAL HISTORY: Past Medical History: Diagnosis Date Allergies Anterolisthesis of lumbar spine 04/04/2021 Moderate to diffuse degenerative changes, 3 mm anterolisthesis of L4 with no dynamic instability Anxiety Back pain COVID 03/15/2022 Moderna Vaccinated; No boosters Gallbladder disease Hypertension (CMS/HCC) Kidney stones Knee pain Lt Osteopenia Pain management Ureteric stone Right ALLERGIES: No Known Allergies VITALS: Visit Vitals Smoking Status Never PHYSICAL EXAM: Ortho Exam LEFT KNEE Wearing hinged knee brace TENDERNESS: anterior IMAGING: June 08, 2023 x-rays AP and lateral of the left knee demonstrate [id number] in the medial compartment of the left knee with subchondral sclerosis and varus alignment marginal osteophytes. Impression: Advanced osteoarthritis left knee Yaniv Garrison ASSESSMENT: ICD-10-CM 1. Arthritis of left knee M17.12 L Inj/Asp: L knee 2. Chronic pain of left knee M25.562 G89.29 Patient ID: Marcela Santiago is a 68 y.o. female. L Inj/Asp: L knee on 06/22/2023 2:19 PM Indications: pain Details: 21 G needle, anterolateral approach Medications: 40 mg methylPREDNISolone acetate 40 MG/ML Outcome: tolerated well, no immediate complications UTILIZING ASEPTIC TECHNIQUE PT GIVEN INJECTION IN LEFT KNEE, NEUROVASC INTACT S/P INJ, TOLERATED WELL Procedure, treatment alternatives, risks and benefits explained, specific risks discussed. Consent was given by the patient. PLAN: I explained the diagnosis and reviewed treatment options including injections vs. Total knee replacement. I discussed with the patient the option of an injection. I advised the patient of risks associated with an injection including a reaction to medication, infection, failure to improve and possible worsening. The patient demonstrated understanding. Patient requesting injection. Skin Cleansed with alcohol swab. Utilizing aseptic technique patient given 40mg Depomedrol was injected. Patient tolerated this well. Neurovasc intact s/p injection. Post injection care instructions discussed. I answered all of the patient's questions. Follow up in 3-4 weeks, any issues/concerns follow up sooner. Dr. Abreu obtained history and examined the patient, I am acting as scribe for Dr. Abreu/trina Abreu D.O. documented in this encounter [facility] Evaluation note 08-17-2022 Note Date & Type Note Facility 08-17-2022 Evaluation note Encounter Date Diagnosis Assessment Notes Aug, Bronchitis (ICD-10 - J40) Drink plenty fluids, get plenty of rest. Take the azithromycin and the prednisone as prescribed until gone. Use the albuterol inhaler as prescribed as needed for cough or shortness of breath. Continue home medications as prescribed. Take Tylenol or Motrin as needed for aches pains or fevers. Follow-up with your family physician if no improvement in 2 to 3 days. Off work until Wednesday, Acute bronchitis material was printed [facility] Other Evaluation note 05-29-2022 Note Date & Type Note Facility 05-29-2022 Evaluation note Encounter Date Diagnosis Assessment Notes May, Other Patient requesting other scans in office, referred to ER for further evaluation [facility] Other Evaluation + Plan note Note Date & Type Note Facility Evaluation + Plan note No data available for this section [facility] Evaluation note Note Date & Type Note Facility Evaluation note Diagnosis Arthritis of left knee- Primary Chronic pain of left knee documented in this encounter [facility] History general Narrative - Reported Note Date & Type Note Facility History general Narrative - Reported Type Medical History hx of kidney stones Medical History HTN Medical History osteoporosis Medical History arthritis Surgical History 2 D&C Surgical History heart catherization Surgical History appendectomy Surgical History arthroscopic knee surgery right Surgical History cholecystectomy Hospitalization History see surgical hx [facility] Other Hospital Discharge instructions Note Date & Type Note Facility Hospital Discharge instructions No data available for this section [facility] Summary Purpose Family History No Family History Records FoundNo Family History Records FoundNo Family History Records FoundNo Family History Records Found Advance Directives No Advanced Directives Records FoundNo Advanced Directives Records FoundNo Advanced Directives Records FoundNo Advanced Directives Records Found Reason for Referral Specialty Diagnoses / Procedures Referred By Becca lr Referred To Contact Orthopaedic Surgery Diagnoses Arthritis of left knee Procedures L Inj/Asp: L knee Lois, Briana Tony, DO [address] [facility] [address] [place] [address] Referral ID Status Reason Start Date Expiration Date V isits Requested Visits Authorized [id number] Pending Review 06/22/2023 12/19/2023 1 1 Additional Source Comments INFORMATION SOURCE (unrecogn ized section and content) DATE CREATED AUTHOR 09/26/2021 [facility] DATE CREATED AUTHOR AUTHOR'S ORGANIZ ATION 08/03/2022 [facility] DATE CREATED AUTHOR AUTHOR'S ORGANIZ ATION 09/10/2023 [facility] DATE CREATED AUTHOR AUTHOR'S ORGANIZ ATION 09/30/2023 [facility] EPIC REASON FOR VISIT (unrecogniz ed section and content) Reason Comments Follow-up Care Teams (unrecognized sec tion and content) Ship Scaler Relationship Specialty Start Date End Date Sid Rodriguez MD [address] [facility] [address] [place] [address] PCP - General Family Medicine 09/28/22 FOR RECORDS PERTAINING TO PATIENTS WHO ARE OR HAVE BEEN ENROLLED IN A CHEMICAL DEPENDENCY/SUBSTANCEABUSE PROGRAM, SOME INFORMATION MAY BE OMITTED. This clinical summary was aggregated from multiple sources. Caution should be exercised in using it in the provision of clinical care. This summary normalizes information from multiple sources, and as a consequence, information in this document may materially change the coding, format and clinical context of patient data. In addition, data may be omitted in some cases. CLINICAL DECISIONS SHOULD BE BASED ON THE PRIMARY CLINICAL RECORDS. [employer] provides no warranty or guarantee of the accuracy or completeness of information in this document.
== END 2023-09-30 11:42 | disposition home or self-care (01) ==
LOC: MAMMO 11:41
PROVIDERS: PCP Family Medicine; Visit Provider Family Medicine
DX: Z12.31 Encounter for screening mammogram for malignant neoplasm of breast (principal); Z80.3 Family history of malignant neoplasm of breast; Z80.1 Family history of malignant neoplasm of trachea, bronchus and lung
CPT/HCPCS: 77063; 77067

== ENCOUNTER 2023-10-22 13:12 | Outpatient (OUT) | payer OTHER, SELFPAY | END 2023-10-22 13:13 | disposition home or self-care (01) | LOC: CARD 13:14 | PROVIDERS: PCP Family Medicine; Visit Provider Family Medicine | DX: I48.91 Unspecified atrial fibrillation (principal); I48.0 Paroxysmal atrial fibrillation | CPT/HCPCS: 93246 ==

== ENCOUNTER 2024-04-17 10:01 | Outpatient (OUT) | payer OTHER, SELFPAY ==
[2024-04-17 10:17] LABS: Basophils Percent Auto 0.6 % (0.2-2.0); Eosinophils Absolute Auto 0.1 10^3/uL (0.0-0.7); Eosinophils Percent Auto 3.8 % (0.9-7.0); Hematocrit 39.9 % (36.0-48.0); Hemoglobin 13.4 g/dL (12.0-16.0); Immature Granulocytes Abs Auto 0.01 10^3/uL (0.00-0.03); Immature Granulocytes Pct Auto 0.3 % (0.0-0.5); Lymphocytes Absolute Auto 0.8 10^3/uL (1.2-3.8); Lymphocytes Percent Auto 22.6 % (20.5-60.0); Mean Corpuscular HGB Conc 33.6 g/dL (29.9-35.2); Mean Corpuscular Hemoglobin 29.9 pg (26.7-34.0); Mean Corpuscular Volume 89.1 fL (81.0-99.0); Mean Platelet Volume 9.5 fL (9.5-13.5); Monocytes Absolute Auto 0.5 10^3/uL (0.3-0.8); Monocytes Percent Auto 13.3 % (1.7-12.0); Neutrophils Absolute Auto 2.1 10^3/uL (1.4-6.5); Neutrophils Percent Auto 59.4 % (43.0-75.0); Platelet Count 207 10^3/uL (150-450); Red Blood Count 4.48 10^6/uL (4.20-5.40); Red Cell Distribution Width 12.1 % (11.0-15.0); White Blood Count 3.5 10^3/uL (4.0-11.0)
[2024-04-17 10:34] LABS: Anion Gap 12.8; BUN Creatinine Ratio 21.7; Calcium 10.1 mg/dL (8.5-10.1); Chloride 106 mmol/L (98-107); Estimated GFR (African America >60 (>=60 mL/min/1.73m^2); Estimated GFR (Non-African Ame >60 (>=60 mL/min/1.73m^2); Glucose 104 mg/dL (74-106); Potassium 3.8 mmol/L (3.5-5.1); Sodium 143 mmol/L (136-145)
== END 2024-04-17 10:02 | disposition home or self-care (01) ==
LOC: LAB 10:03
PROVIDERS: PCP Family Medicine
DX: Z01.818 Encounter for other preprocedural examination (principal)
CPT/HCPCS: 36415; 80048; 85025

== ENCOUNTER 2024-05-11 12:59 | Outpatient (OUT) | payer OTHER, SELFPAY ==
--- OUTSIDE RECORDS SUMMARY | 2024-05-11 13:04 | XMS_ITS | CCD ---
Author Organization [facility] Care Team Providers Care Manager Web Application Name Role Phone NONE, XXXX Primary Care Physician Unavailab Consuelo Benavidez Unavailable MICHAEL, DR DAO Primary Care Unavailable PAY ., DR LIAO Admitting Unavailable PAY ., DR LIAO Attending Unavailable ZIEBARVIND, DR BELLE Hernandez Consulting Unavailable PAY ., DR LIAO Consulting Unavailable GRECHNY ., CHAVO ESPINOZA Consulting UnavailMarcela Fair Unavailable Feliberto Rodriguez MD Primary Care Provider Feliberto Rodriguez MD Primary Care Provider [phone] LAURA CACERES Attending Unavailable MICHAEL, RUGEN MABKWAKU Primary Care Unavailable MICHAEL, RUGEN M Referring Unavailable MICHAEL, RUGEN M Primary Care Unavailable BRIANA ABREU Attending Unavailable BRIANA ABREU Referring Unavailable MICHAEL, RUGEN M Primary Care Unavailable MICHAEL, RUGEN M Referring Unavailable MICHAEL, RUGEN M Primary Care Unavailable BRIANA ABREU Referring Unavailable MICHAEL, RUGEN M Primary Care Unavailable BRIANA ABREU Admitting Unavailable BRIANA ABREU Attending Unavailable BRIANA ABREU Referring Unavailable MICHAEL, RUGEN M Primary Care Unavailable MARLENY HIDALGO Attending Unavailable MICHAEL, RUGEN M Primary Care Unavailable MICHAEL, RUGEN M Referring Unavailable MICHAEL, RUGEN M Primary Care Unavailable BRIANA ABREU Referring Unavailable MICHAEL, RUGEN M Primary Care Unavailable BRIANA ABREU Referring Unavailable MICHAEL, RUGEN M Primary Care Unavailable BRIANA ABREU Admitting Unavailable BRIANA ABREU Attending Unavailable BRIANA ABREU Referring Unavailable MICHAEL, RUGEN M Primary Care Unavailable MARLENY HIDALGO Attending Unavailable MICHAEL, RUGEN M Primary Care Unavailable DONNY, BRIANA Jimenez Admitting Unavailable DONNY, BRIANA Jimenez Attending Unavailable DONNY, BRIANA Jimenez Attending Unavailable LAVELL GARCIA Attending Unavailable LUPE, WILLY Referring Unavailable JOSE, KORY Attending Unavailable LUPE, WILLY Referring Unavailable DONNY, BRIANA Jimenez Attending Unavailable DONNY, BRIANA Jimenez Attending Unavailable DONNY, BRIANA Jimenez Referring Unavailable DONNY, BRIANA Jimenez Attending Unavailable NASH CASTANEDA Attending Unavailable DONNY, BRIANA Jimenez Attending Unavailable BRISEIDA, NI Willis Attending Unavailable DONNY, BRIANA Jimenez Referring Unavailable RAF CA Attending Unavailable DONNY, BRIANA Jimenez Attending Unavailable NASH CASTANEDA Attending Unavailable MICHAELFELIBERTO Jimenez Attending Unavailable MICHAELFELIBERTO Jimenez Attending Unavailable DONNY, BRIANA Jimenez Attending Unavailable NASH CASTANEDA Attending Unavailable MICHAELFELIBERTO Attending Unavailable LOYD, AMIRA Murdock Attending Unavailable PACKER, KALIA T Referring Unavailable LOYD, AMIRA Murdock Attending Unavailable PACKER, KALIA T Referring Unavailable DONNY, BRIANA Jimenez Attending Unavailable LOYD, AMIRA Murdock Attending Unavailable PACKER, KALIA T Referring Unavailable LOYD, AMIRA Murdock Attending Unavailable PACKER, KALIA T Referring Unavailable BRISEIDA, NI Willis Attending Unavailable PACKER, KALIA T Referring Unavailable ROBERTVIDYA Attending Unavailable PACKER, KALIA T Referring Unavailable ROBERTVIDYA Attending Unavailable PACKER, KALIA T Referring Unavailable ROBERTVIDYA Attending Unavailable PACKER, KALIA T Referring Unavailable ROBERTVIDYA Attending Unavailable PACKER, KALIA T Referring Unavailable BRISEIDA, NI Willis Attending Unavailable PACKER, KALIA T Referring Unavailable NASH CASTANEDA Attending Unavailable ESTEPHANIA CHAMPION Attending Unavailable LUPE, WILLY Referring Unavailable JOSE, KORY Attending Unavailable LUPE, WILLY Referring Unavailable DONNY, BRIANA Jimenez Attending Unavailable DONNY, BRIANA Jimenez Referring Unavailable ROBERTVIDYA Attending Unavailable PACKER, KALIA T Referring Unavailable ROBERTVIDYA Attending Unavailable PACKER, KALIA T Referring Unavailable BRISEIDA, NI Willis Attending Unavailable PACKER, KALIA T Referring Unavailable BRISEIDA, NI Willis Attending Unavailable PACKER, KALIA T Referring Unavailable TATTERSTAMMY GREENE Attending Unavailable PACKER, KALIA T Referring Unavailable NASH CASTANEDA Attending Unavailable VIDYA RBOERT Attending Unavailable PACKER, KALIA T Referring Unavailable TATTERSALLTAMMY Attending Unavailable PACKER, KALIA T Referring Unavailable VIDYA ROBERT Attending Unavailable BIRDIE, KALIA T Referring Unavailable TAMMY HARRIS Attending Unavailable PACKER, KALIA T Referring Unavailable NI GOINS Attending Unavailable PACKER, KALIA T Referring Unavailable BRIANA ABREU Attending Unavailable NASH CASTANEDA Attending Unavailable NASH CASTANEDA Referring Unavailable TAMMY HARRIS Attending Unavailable PACKER, KALIA T Referring Unavailable VIDYA ROBERT Attending Unavailable PACKER, KALIA T Referring Unavailable TATTERSTAMMY GREENE Attending Unavailable PACKER, KALIA T Referring Unavailable VIDYA ROBERT Attending Unavailable PACKER, KALIA T Referring Unavailable NURATERSTAMMY GREENE Attending Unavailable BIRDIE, KALIA T Referring Unavailable NASH CASTANEDA Attending Unavailable VIDYA ROBERT Attending Unavailable BIRDIE, KALIA T Referring Unavailable FELIBERTO RODRIGUEZ Attending Unavailable FELIBERTO RODRIGUEZ Referring Unavailable NASH CASTANEDA Attending Unavailable FELIBERTO RODRIGUEZ Attending Unavailable Medications Current Medications Medication Drug Class(es) Dates Sig (Normalized) Sig (Original) acetaminophen 500 mg oral capsule (20 sources) Acetaminophen 50 0 MG capsule Take by mouth every 6 (six) hours if needed. Active take 1 tablet by kayla th every six hours as needed acetaminophen (Tylenol) 500 mg tablet Ta ke 1 tablet (500 mg) by mouth every 6 hours if needed. Active Acetaminophen Ac tive acetaminophen 325 mg / HYDROcodone bitartrate 5 mg oral tablet (20 sources) Opioid Agonist Start: 04-20-2024 End: 04-25-2024 take 1 tablet by mouth every eight hours as needed for pain HYDROcodone-acetaminophen (Poyen) 5-325 MG tablet Indications: Pain Take 1 tablet by mouth every 8 (eight) hours if needed for moderate pain (PRN pain) for up to 5 days 15 tablet 04/20/2024 04/25/2024 Active End: 04-16-2024 HYDROcodone-acetaminophen (N orco) 5-325 MG tablet 04/16/2024 Discontinued (Therapy completed) [id number] 200 actuat albuterol 0.09 mg/actuat metered dose inhaler (1 source) beta2-Adrenergic Agonist Start: 08-17-2022 take 2 puff(s) by inhalation four times daily as needed Albuterol Sulfate HFA 108 (90 Base) MCG/ACT 2 puffs Inhalation 4 times a day prn Aug, Active alendronic acid 70 mg oral tablet (20 sources) Bisphosphonate Start: 04-12-2023 alendronate (Fosamax) 70 MG tablet Indications: Osteoporosis, unspecified osteoporosis type, unspecified pathological fracture presence (CMS/HCC) TAKE 1 TABLET(70 MG) BY MOUTH EVERY 7 DAYS 12 tablet 3 03/23/2024 Active Start: 04-12-2023 take 1 tablet by kayla th every week alendronate (Fosamax) 70 mg tablet Take 1 tablet (70 mg) by mouth once a week. 04/12/2023 Active Alendronate Sodi um Active azithromycin 250 mg oral tablet (1 source) Macrolide Antimicrobial Start: 08-17-2022 Azithromycin 250 MG 2 tablet on the first day, then 1 tablet daily for 4 days Orally Once a day for 5 day(s) Aug, Active benzonatate 100 mg oral capsule (20 sources) Non-narcotic Antitussive Start: 09-02-2023 take 1 capsule by mouth three times daily as needed for cough benzonatate (Tessalon Perles) 100 MG capsule Indications: Acute cough , Acute non-recurrent maxillary sinusitis Take 1 capsule (100 mg) by mouth 3 (three) times a day as needed for cough Do not crush or chew. 21 capsule 09/02/2023 Active busPIRone hydrochloride 5 mg oral tablet (20 sources) Start: 04-12-2023 End: 05-16-2024 take 1 [...] 04/12/2023 05/16/2024 Active busPIRone HCl Ac tive cephalexin 500 mg oral capsule (1 source) Cephalosporin Antibacterial take 1 capsule by mouth four times daily cephalexin (Keflex) 500 mg capsule Take 1 capsule (500 mg) by mouth 4 times a day. Active cholecalciferol 0.125 mg oral capsule (20 sources) Vitamin D Start: End: 12-10-2 024 take 1 capsule by mouth once daily cholecalciferol (Vitamin D-3) 125 MCG (5000 UT) capsule Indications: Vitamin D deficiency Take 1 capsule (125 mcg) by mouth Daily 100 capsule 3 04/25/2024 Active take 1 tablet by mouth once kayode y cholecalciferol (Vitamin D-3) 5,000 Units tablet Take 1 tablet (5,000 Units) by mouth once daily. Active diclofenac sodium 0.01 mg/mg topical gel (20 sources) Nonsteroidal Anti-inflammatory Drug diclofenac sodium (Voltaren) 1 % gel Apply topically 3 (three) times a day. Active ferrous sulfate 325 mg delayed release oral tablet (20 sources) Start: 11-16-19 End: 04-10-20 take 1 tablet by mouth once daily ferrous sulfate (Fe Tabs) 325 (65 Fe) MG EC tablet Indications: Arthritis of left knee Take 1 tablet (325 mg) by mouth Daily Do not crush, chew, or split. 100 tablet 3 04/10/2024 04/10/2025 Active Start: 09-09-2023 take 1 tablet by kayla th once daily at breakfast ferrous sulfate 325 (65 Fe) MG EC tablet Take 1 tablet by mouth once daily with breakfast. 09/09/2023 Active hydroCHLOROthiazide 12.5 mg / lisinopril 20 mg oral tablet (20 sources) Thiazide Diuretic, Angiotensin Converting Enzyme Inhibitor Start: 04-10-2024 End: 05-15-2025 take 1 tablet by mouth once daily lisinopril-hydroCHLOROthiazide 20-12.5 MG tablet Indications: Primary hypertension (CMS/HCC) Take 1 tablet by mouth Daily 100 tablet 3 04/10/2024 05/15/2025 Active Start: 04-12-2023 End: 05-16-2024 take 1 tablet by mouth in the morning lisinopril-hydroCHLOROthiazide 20-12.5 M G tablet Indications: Primary hypertension (CMS/HCC) Take 1 tablet by mouth in the morning. 100 tablet 3 04/12/2023 04/10/2024 Discontinued (Reorder) Start: 04-12-2023 take 1 tablet by kayla th once daily lisinopriL-hydrochlorothiazide 20-12.5 m g tablet Take 1 tablet by mouth once daily. 04/12/2023 Active take 1 tablet by kayla th every twenty-four hours Lisinopril-hydroCHLOROthiazide 20-12.5 M G 1 tablet Orally Once a day for 30 day(s) Active lisinopril 20 mg oral tablet (20 sources) Angiotensin Converting Enzyme Inhibitor Start: 04-12-2023 End: 04-10-2024 take 1 tablet by mouth once daily lisinopril 20 MG tablet Indications: Primary hypertension (CMS/HCC) Take 1 tablet (20 mg) by mouth Daily 100 tablet 3 04/10/2024 Active metoprolol tartrate 50 mg oral tablet (20 sources) beta-Adrenergic Mesha Start: 10-12-2023 End: 11-15-2024 take 1 tablet by mouth in the morning metoprolol tartrate (Lopressor) 50 MG tablet Indications: Atrial fibrillation by electrocardiogram (CMS/HCC) Take 1 tablet (50 mg) by mouth in the morning and 1 tablet (50 mg) before bedtime. 200 tablet 3 10/12/2023 11/15/2024 Active predniSONE 20 mg oral tablet (1 [...] 40 mg/ml injection (2 sources) Corticosteroid Start: End: 4 methylPREDNISolone acetate (DEPO-Medrol) injection 40 mg Problems Active Problems Problem Classification Problem Date Documented Da te Episodic/Chronic Acquired foot deformities (20 sources) Acquired hallux rigidus; Translations: [Hallux rigidus, unspecified foot] Onset: 09-15-2022 09-15-2022 Chronic Acquired foot deformities (8 sources) Acquired deformity of toe of right foot; Translations: [Acquired deformities of toe(s), unspecified, right foot] 03-01-2024 Episodic Adjustment disorders (20 sources) Adjustment disorder with anxious mood; Translations: [Adjustment disorder with anxiety] Onset: 09-15-2022 09-15-2022 Chronic Cardiac dysrhythmias (20 sources) ECG: atrial fibrillation; Translations: [Unspecified atrial fibrillation] Onset: 10-06-2023 10-27-2023 Chronic Chronic obstructive pulmonary disease and bronchiectasis (1 source) Bronchitis, not specified as acute or chronic Episodic Coagulation and hemorrhagic disorders (20 sources) Thrombophilia; Translations: [Other thrombophilia] Onset: 12-02-2023 12-02-2023 Chronic E Codes: Fall (1 source) Fall on same level from slipping, tripping and stumbling with subsequent striking against unspecified object, initial encounter; Translations: [FALL SAME LVL SLIP STRK UNS OBJ INT] Onset: 06-01-2022 Episodic Esophageal disorders (20 sources) Gastro-esophageal reflux disease with esophagitis; Translations: [Gastro-esophageal reflux disease with esophagitis] Onset: 10-08-2020 09-15-2022 Chronic Essential hypertension (20 sources) Essential hypertension; Translations: [Essential (primary) hypertension] Onset: 09-15-2022 09-15-2022 Chronic Genitourinary symptoms and ill-defined conditions (2 sources) Dysuria; Translations: [Dysuria] Episodic Menopausal disorders (20 sources) Decreased estrogen level; Translations: [Other primary ovarian failure] Onset: 09-15-2022 09-15-2022 Chronic Mycoses (2 sources) Onychomycosis; Translations: [Tinea unguium] 04-16-2024 Episodic Nonspecific chest pain (3 sources) Other chest pain; Translations: [OTHER CHEST PAIN] Onset: 05-29-2022 Episodic Nutritional deficiencies (20 sources) Vitamin D deficiency; Translations: [Vitamin D deficiency, unspecified] Onset: 09-15-2022 09-15-2022 Chronic Osteoarthritis (20 sources) Arthritis of left knee; Translations: [Unilateral primary osteoarthritis, left knee] Onset: 09-15-2022 06-22-2023 Chronic Osteoporosis (20 sources) Osteoporosis; Translations: [Age-related osteoporosis without current pathological fracture] Onset: 09-15-2022 09-15-2022 Chronic Other acquired deformities (20 sources) Contracture of joint of right ankle; Translations: [Contracture, right ankle] Onset: 09-15-2022 09-15-2022 Chronic Other acquired deformities (8 sources) Deformity of metatarsal; Translations: [Unspecified acquired deformity of right lower leg] 03-01-2024 Episodic Other aftercare (1 source) Other [place] [facility] (current) drug therapy; Translations: [[employer] CURRENT DRUG THERAPY] Onset: 06-01-2022 Episodic Other connective tissue disease (4 sources) History of total knee arthroplasty; Translations: [Presence of left artificial knee joint] 03-02-2024 Chronic Other connective tissue disease (2 sources) Pain of toe of left foot; Translations: [Pain in left toe(s)] 04-16-2024 Episodic Other connective tissue disease (2 sources) Pain of toe of right foot; Translations: [Pain in right toe(s)] 04-16-2024 Episodic Other injuries and conditions due to external causes (7 sources) Injury of right foot; Translations: [Unspecified injury of right foot, initial encounter] 03-01-2024 Episodic Other nervous system disorders (20 sources) Carpal tunnel syndrome of right wrist; Translations: [Carpal tunnel syndrome, right upper limb] Onset: 09-15-2022 09-15-2022 Chronic Other nervous system disorders (20 sources) Sciatic nerve lesion; Translations: [Lesion of sciatic nerve, unspecified lower limb] Onset: 09-15-2022 09-15-2022 Chronic Other non-traumatic joint disorders (1 source) Pain in left knee; Translations: [Pain in joint, lower leg] 06-22-2023 Episodic Other nutritional; endocrine; and metabolic disorders (20 sources) Obesity caused by energy imbalance; Translations: [Morbid (severe) obesity due to excess calories] Onset: 10-07-2023 10-27-2023 Chronic Other skin disorders (2 sources) Localized swelling of left foot; Translations: [Localized swelling, mass and lump, left lower limb] 04-10-2024 Episodic Other skin disorders (11 sources) Localized swelling of left lower leg; Translations: [Localized swelling, mass and lump, left lower limb] Onset: 04-10-2024 04-10-2024 Episodic Other upper respiratory disease (20 sources) Allergic rhinitis due to pollen; Translations: [Allergic rhinitis due to pollen] Onset: 05-18-2017 10-08-2022 Chronic Phlebitis; thrombophlebitis and thromboembolism (4 sources) Acute deep venous thrombosis of politeal vein of right leg; Translations: [Acute embolism and thrombosis of right popliteal vein] 05-11-2024 Episodic Prolapse of female genital organs (20 sources) Uterine prolapse; Translations: [Uterovaginal prolapse, unspecified] Onset: 09-15-2022 09-15-2022 Chronic Spondylosis; intervertebral disc disorders; other back problems (20 sources) Degeneration of lumbar intervertebral disc; Translations: [Other intervertebral disc degeneration, lumbar region] Onset: 09-15-2022 09-15-2022 Chronic Superficial injury; contusion (1 source) Contusion of right front wall of thorax, initial encounter; Translations: [CONTUS RT FRONT WALL THORAX INITIAL] Onset: 06-01-2022 Episodic Unclassified (1 source) left knee degenerative joint disease Onset: 10-06-2023 Past or Other Problems Problem Classification Problem Date Documented Da te Episodic/Chronic Calculus of urinary tract (20 sources) History of calculus of kidney; Translations: [Personal history of urinary calculi] Onset: 07-26-2015 10-08-2022 Episodic Other bone disease and musculoskeletal deformities (20 sources) Osteopenia; Translations: [Other specified disorders of bone density and structure, unspecified site] Onset: 07-26-2015 10-08-2022 Episodic Other connective tissue disease (20 sources) Trigger thumb of right hand; Translations: [Trigger thumb, right thumb] Onset: 04-12-2023 04-12-2023 Episodic Other connective tissue disease (20 sources) Ganglion of flexor tendon sheath of finger; Translations: [Ganglion, right hand] Onset: 04-12-2023 04-12-2023 Episodic Other hematologic conditions (20 sources) H/O: anemia - iron deficient; Translations: [Personal history of diseases of the blood and blood-forming organs and certain disorders involving the immune mechanism] Onset: 07-26-2015 10-08-2022 Episodic Other nervous system disorders (20 sources) Other acute postprocedural pain; Translations: [Pain in joint, lower leg] Onset: 12-17-2023 12-19-2023 Episodic Other skin disorders (20 sources) Nailbed deformity; Translations: [Other nail disorders] Onset: 04-12-2023 04-12-2023 Episodic Other upper respiratory infections (20 sources) Acute maxillary sinusitis; Translations: [Acute maxillary sinusitis, unspecified] Onset: 09-28-2023 10-27-2023 Episodic Spondylosis; intervertebral disc disorders; other back problems (20 sources) Acute back pain with sciatica; Translations: [Lumbago with sciatica, right side] Onset: 09-15-2022 09-15-2022 Episodic Unclassified (1 source) Onset: 10-27-2023 10-27-2023 Results Test Name Value Interpretation Reference Range Facility XR Foot - right 3 Viewson [facility] Radiology Study observation (narrative) [facility] US LOWER EXTREMITY VENO US DUPLEX LEFTon 04-19-2024 [facility] US LOWER EXTREMITY VENOUS DUPLEX LEFT VAS US LOWER EXTREMITY VENOUS DUPLEX LEFT Reason for exam: Left lower extremity swelling Prior comparative studies: None Findings: [facility] US LOWER EXTREMITY VENOUS DUPLEX LEFT Technique:Grayscale,col or Doppler and spectral analysis was performed. Findings: Deep venous system is fully compressible throughout the left lower extremity. There is appropriate color and pulsed doppler flow throughout as well. Impression: 1. No evidence for deep venous thrombosis in the left lower extremity. Normal Not Available ALL CBC WITH AUTO DIFFon BASOPHILS ABSOLUTE AUTO 0 [facility] Basophils/100 WBC (Bld) 0.6 % 0.2 - 2.0 % [facility] Eosinophils/100 WBC (Bld) 3.8 % 0.9 - 7.0 % [facility] Erythrocyte distribution width (RBC) [Ratio] 12.1 % 11.0 - 15.0 % [facility] Hematocrit (Bld) [Volume fraction] 39.9 % 36.0 - 48.0 % [facility] Hemoglobin (Bld) [Mass/Vol] 13.4 g/dL 12.0 - 16.0 g/dL [facility] IMMATURE GRANULOCYTES ABS AUTO 0.01 [facility] Immature granulocytes/100 WBC (Bld) 0.3 % 0.0 - 0.5 % [facility] Interpretation and review of laboratory results Abnormal [facility] LYMPHOCYTES ABSOLUTE AUTO 0.8 Low [facility] Lymphocytes/100 WBC (Bld) 22.6 % 20.5 - 60.0 % [facility] MCH (RBC) [Entitic mass] 29.9 pg 26.7 - 34.0 pg [facility] MCHC (RBC) [Mass/Vol] 33.6 g/dL 29.9 - 35.2 g/dL [facility] MCV (RBC) [Entitic vol] 89.1 fL 81.0 - 99.0 fL [facility] MONOCYTES ABSOLUTE AUTO 0.5 [facility] Monocytes/100 WBC (Bld) 13.3 % High 1.7 - 12.0 % [facility] NEUTROPHILS ABSOLUTE AUTO 2.1 [facility] Neutrophils/100 WBC (Bld) 59.4 % 43.0 - 75.0 % [facility] Platelet mean volume (Bld) [Entitic vol] 9.5 fL 9.5 - 13.5 fL [facility] EO # 0.1 [facility] PLT [address] [facility] RBC 4.48 [facility] WBC 3.5 Low [facility] XR Knee - left 1 or 2 Viewso n 01-20-2024 Imaging Result: January 20, 2024 x-rays AP weight-bearing bilateral knees and lateral of the left knee demonstrate a cemented knee replacement in good position alignment without signs of loosening fracture or failure. Impression: Stable appearance of left total knee replacement Yaniv Abreu D.O. [facility] Radiology Study observation (narrative) [facility] XR KNEE LT 1 OR 2 VWSon 07-3 XR KNEE LT 1 OR 2 VWS XR KNEE LT 1 OR 2 VWS XR KNEE LT 1 OR 2 VWS HISTORY: Knee replacement. COMPARISON: None. IMPRESSION: 1. Status post knee replacement, soft tissue gas, joint effusion, swelling. No complication Finalized by Prashant Jewell MD on 12/15/2023 10:42 AM Normal [facility] BASIC METABOLIC PANLon 11-22 Anion gap [Moles/Vol] 9 mmol/L Normal 5-15 [facility] Comment on above: Performed By: #### C BCA, BMP #### [facility] ([id number]) [address], [address] [place] [address] Calcium [Mass/Vol] 9.9 mg/dL Normal 8.5-10.5 [facility] Comment on above: Performed By: #### C BCA, BMP #### [facility] ([id number]) [address], [address] [place] [address] Chloride [Moles/Vol] 105 mmol/L Normal 98-109 [facility] Comment on above: Performed By: #### C BCA, BMP #### [facility] ([id number]) [address], [address] [place] [address] CO2 [Moles/Vol] 28 mmol/L Normal 22-32 [facility] Comment on above: Performed By: #### C BCA, BMP #### [facility] ([id number]) [address], [address] [place] [address] Creatinine [Mass/Vol] 0.74 mg/dL Normal 0.40-1.00 [facility] Comment on above: Result Comment: METH OD TRACEABLE TO IDMS STANDARD Performed By: #### C BCA, BMP #### [facility] ([id number]) [address], [address] [place] [address] GFR/1.73 sq M.predicted among non-blacks MDRD (S/P/Bld) [Vol rate/Area] 88 mL/min/{1.73_m2} Normal >59 [facility] Comment on above: Result Comment: Reported eGFR is based on the CKD-EPI 2020 equation that does not use a race coefficient. Performed By: #### C BCA, BMP #### [facility] ([id number]) [address], [address] [place] [address] Glucose [Mass/Vol] 85 mg/dL Normal 65-99 [facility] Comment on above: Performed By: #### C BCA, BMP #### [facility] ([id number]) [address] [address] [place] [address] Potassium [Moles/Vol] 4.2 mmol/L Normal 3.5-5.0 [facility] Comment on above: Performed By: #### C BCA, BMP #### [facility] ([id number]) [address], [address] [place] [address] Sodium [Moles/Vol] 142 mmol/L Normal 134-146 [facility] Comment on above: Performed By: #### Hola PEPPER, BMP #### [facility] ([id number]) [address], [address] [place] [address] Urea nitrogen [Mass/Vol] 21 mg/dL Normal 5-27 [facility] Comment on above: Performed By: #### C SHANTELLE, BMP #### [facility] ([id number]) [address], [address] [place] [address] CBC AND AUTO DIFFon 11-23-19 24 ABSOLUTE BASOPHIL 0.1 X10E9/L Normal 0.0-0.2 [facility] Comment on above: Performed By: #### Hola PEPPER, BMP #### [facility] ([id number]) [address], [address] [place] [address] ABSOLUTE NEUTROPHIL 3.0 X10E9/L Normal 1.5-6.6 [facility] Comment on above: Performed By: #### Hola PEPPER, BMP #### [facility] [facility] ([id number]) [address], [address] [place] [address] Basophils/100 WBC (Bld) 1.2 % Normal [facility] Comment on above: Performed By: #### Hola PEPPER, BMP #### [facility] ([id number]) [address], [address] [place] [address] Eosinophils (Bld) [#/Vol] 0.1 10*3/uL Normal 0.0-0.4 [facility] Comment on above: Performed By: #### Hola PEPPER, BMP #### [facility] ([id number]) [address], [address] [place] [address] Eosinophils/100 WBC (Bld) 1.2 % Normal [facility] Comment on above: Performed By: #### Hola PEPPER, BMP #### [facility] ([id number]) [address], [address] [place] [address] Erythrocyte distribution width (RBC) [Ratio] 13.0 % Normal 11.5-15.0 [facility] Comment on above: Performed By: #### C BCA, BMP #### [facility] ([id number]) [address], [address] [place] [address] Hematocrit (Bld) [Volume fraction] 39.8 % Normal 35-47 [facility] Comment on above: Performed By: #### C SHANTELLE, BMP #### [facility] ([id number]) [address], [address] [place] [address] Hemoglobin (Bld) [Mass/Vol] 13.6 g/dL Normal 11.7-15.5 [facility] Comment on above: Performed By: #### C SHANTELLE, BMP #### [facility] ([id number]) [address], [address] [place] [address] Lymphocytes (Bld) [#/Vol] 1.6 10*3/uL Normal 1.0-3.5 [facility] Comment on above: Performed By: #### C BCA, BMP #### [facility] ([id number]) [address], [address] [place] [address] Lymphocytes/100 WBC (Bld) 30.9 % Normal [facility] Comment on above: Performed By: #### C BCA, BMP #### [facility] ([id number]) [address], [address] [place] [address] MCH (RBC) [Entitic mass] 31.1 pg Normal 27-34 [facility] Comment on above: Performed By: #### C BCA, BMP #### [facility] ([id number]) [address], [address] [place] [address] MCHC (RBC) [Mass/Vol] 34.1 g/dL Normal 32-36 [facility] Comment on above: Performed By: #### C BCA, BMP #### [facility] ([id number]) [address], [address] [place] [address] MCV (RBC) [Entitic vol] 91 fL Normal 80-100 [facility] Comment on above: Performed By: #### C BCA, BMP #### [facility] ([id number]) [address], [address] [place] [address] Monocytes (Bld) [#/Vol] 0.3 10*3/uL Normal 0-0.9 [facility] Comment on above: Performed By: #### C BCA, BMP #### [facility] ([id number]) [address], [address] [place] [address] Monocytes/100 WBC (Bld) 6.8 % Normal [facility] Comment on above: Performed By: #### C BCA, BMP #### [facility] ([id number]) [address], [address] [place] [address] Neutrophils/100 WBC (Bld) 59.9 % Normal [facility] Comment on above: Performed By: #### C BCA, BMP #### [facility] ([id number]) [address], [address] [place] [address] Platelet mean volume (Bld) [Entitic vol] 8.8 fL Normal 7-12 [facility] Comment on above: Performed By: #### C BCA, BMP #### [facility] ([id number]) [address], [address] [place] [address] Platelets (Bld) [#/Vol] 226 10*3/uL Normal 150-450 [facility] Comment on above: Performed By: #### C BCA, BMP #### [facility] ([id number]) [address], [address] [place] [address] RBC COUNT 4.36 X10E12/L Normal 3.80-5.20 [facility] Comment on above: Performed By: #### C BCA, BMP #### [facility] ([id number]) [address], [address] [place] [address] WBC (Bld) [#/Vol] 5.1 10*3/uL Normal 4.0-11.0 [facility] Comment on above: Performed By: #### C BCA, BMP #### [facility] ([id number]) [address], [address] [place] [address] ECG 12 Leadon 10-27-2023 ECG revealed normal sinus rhythm low voltage QRS complex otherwise normal ECG [facility] Work Phone: BASIC METABOLIC PANLon 09-08 Anion gap [Moles/Vol] 11 mmol/L Normal 5-15 [facility] Comment on above: Performed By: #### C BCA, BMP #### [facility] ([id number]) [address], [address] [place] [address] Calcium [Mass/Vol] 9.7 mg/dL Normal 8.5-10.5 [facility] Comment on above: Performed By: #### C BCA, BMP #### [facility] ([id number]) [address], [address] [place] [address] Chloride [Moles/Vol] 104 mmol/L Normal 98-109 [facility] Comment on above: Performed By: #### C BCA, BMP #### [facility] ([id number]) [address], [address] [place] [address] CO2 [Moles/Vol] 27 mmol/L Normal 22-32 [facility] Comment on above: Performed By: #### C BCA, BMP #### [facility] ([id number]) [address], [address] [place] [address] Creatinine [Mass/Vol] 0.82 mg/dL Normal 0.40-1.00 [facility] Comment on above: Result Comment: METH OD TRACEABLE TO IDMS STANDARD Performed By: #### C SHANTELLE, BMP #### [facility] ([id number]) [address], [facility] [address] [place] [address] GFR/1.73 sq M.predicted among non-blacks MDRD (S/P/Bld) [Vol rate/Area] 78 mL/min/{1.73_m2} Normal >59 [facility] Comment on above: Result Comment: Reported eGFR is based on the CKD-EPI 2020 equation that does not use a race coefficient. Performed By: #### C BCA, BMP #### [facility] ([id number]) [address], [address] [place] [address] Glucose [Mass/Vol] 105 mg/dL High 65-99 [facility] Comment on above: Performed By: #### C BCA, BMP #### [facility] ([id number]) [address] [address] [place] [address] Potassium [Moles/Vol] 3.9 mmol/L Normal 3.5-5.0 [facility] Comment on above: Performed By: #### C BCA, BMP #### [facility] ([id number]) [address] [address] [place] [address] Sodium [Moles/Vol] 142 mmol/L Normal 134-146 [facility] Comment on above: Performed By: #### C BCA, BMP #### [facility] ([id number]) [address] [address] [place] [address] Urea nitrogen [Mass/Vol] 17 mg/dL Normal 5-27 [facility] Comment on above: Performed By: #### C BCA, BMP #### [facility] ([id number]) [address] [address] [place] [address] CBC AND AUTO DIFFon 09-08- 24 ABSOLUTE BASOPHIL 0.0 X10E9/L Normal 0.0-0.2 [facility] Comment on above: Performed By: #### Hola PEPPER, BMP #### [facility] ([id number]) [address], [facility] [address] [place] [address] ABSOLUTE NEUTROPHIL 4.4 X10E9/L Normal 1.5-6.6 [facility] Comment on above: Performed By: #### C SHANTELLE, BMP #### [facility] ([id number]) [address], [facility] [address] [place] [address] Basophils/100 WBC (Bld) 0.6 % Normal [facility] Comment on above: Performed By: #### Hola PEPPER, BMP #### [facility] ([id number]) [address], [address] [address] Eosinophils (Bld) [#/Vol] 0.0 10*3/uL Normal 0.0-0.4 [facility] Comment on above: Performed By: #### Hola PEPPER, BMP #### [facility] ([id number]) [address], [address] [address] Eosinophils/100 WBC (Bld) 0.7 % Normal [facility] Comment on above: Performed By: #### Hola PEPPER, BMP #### [facility] ([id number]) [address] [address] Erythrocyte distribution width (RBC) [Ratio] 12.2 % Normal 11.5-15.0 [facility] Comment on above: Performed By: #### Hola PEPPER, BMP #### [facility] ([id number]) [address] [address] [place] [address] Hematocrit (Bld) [Volume fraction] 38.6 % Normal 35-47 [facility] Comment on above: Performed By: #### Hola PEPPER, BMP #### [facility] ([id number]) [address], [address] [place] [address] Hemoglobin (Bld) [Mass/Vol] 13.0 g/dL Normal 11.7-15.5 [facility] Comment on above: Performed By: #### C SHANTELLE, BMP #### [facility] ([id number]) [address], [address] [place] [address] Lymphocytes (Bld) [#/Vol] 1.3 10*3/uL Normal 1.0-3.5 [facility] Comment on above: Performed By: #### C SHANTELLE, BMP #### [facility] ([id number]) [address], [address] [place] [address] Lymphocytes/100 WBC (Bld) 20.6 % Normal [facility] Comment on above: Performed By: #### C SHANTELLE, BMP #### [facility] ([id number]) [address], [address] [place] [address] MCH (RBC) [Entitic mass] 30.4 pg Normal 27-34 [facility] Comment on above: Performed By: #### C SHANTELLE, BMP #### [facility] ([id number]) [address], [address] [place] [address] MCHC (RBC) [Mass/Vol] 33.7 g/dL Normal 32-36 [facility] Comment on above: Performed By: #### C SHANTELLE, BMP #### [facility] ([id number]) [address], [address] [place] [address] MCV (RBC) [Entitic vol] 90 fL Normal 80-100 [facility] Comment on above: Performed By: #### C BCA, BMP #### [facility] ([id number]) [address], [address] [place] [address] Monocytes (Bld) [#/Vol] 0.4 10*3/uL Normal 0-0.9 [facility] Comment on above: Performed By: #### C SHANTELLE, BMP #### [facility] ([id number]) [address], [address] [place] [address] Monocytes/100 WBC (Bld) 7.3 % Normal [facility] Comment on above: Performed By: #### C SHANTELLE, BMP #### [facility] ([id number]) [address], [address] [place] [address] Neutrophils/100 WBC (Bld) 70.8 % Normal [facility] Comment on above: Performed By: #### C SHANTELLE, BMP #### [facility] ([id number]) [address], [address] [place] [address] Platelet mean volume (Bld) [Entitic vol] 8.1 fL Normal 7-12 [facility] Comment on above: Performed By: #### C SHANTELLE, BMP #### [facility] ([id number]) [address], [address] [place] [address] Platelets (Bld) [#/Vol] 277 10*3/uL Normal 150-450 [facility] Comment on above: Performed By: #### C SHANTELLE, BMP #### [facility] ([id number]) [address], [address] [place] [address] RBC COUNT 4.28 X10E12/L Normal 3.80-5.20 [facility] Comment on above: Performed By: #### C BCA, BMP #### [facility] ([id number]) [address], [address] [place] [address] WBC (Bld) [#/Vol] 6.2 10*3/uL Normal 4.0-11.0 [facility] Comment on above: Performed By: #### C BCA, BMP #### [facility] ([id number]) [address] [place] [address], [address] [place] [address] L Inj/Asp: L kneeon 06-22-19 Briana Abreu DO 06/22/2023 3:54 PM L Inj/Asp: L [...] discussed. Consent was given by the patient. [facility] Surgical Pathologyon 023 Surgical Pathology Normal [facility] Comment on above: Result Comment: [facility] [address] [place] [address] Surgical Pathology Consultation Patient Name:MARCELA SANTIAGO:1955 (Age: 68)Gender:FTaken:05/05/2023Reported:05/14/2023hysician(s):Briana Abreu DO ([phone])Copy To: Rec. #:[id number]: #[id number] Final Pathologic Diagnosis Right hand digit, mass, excision: Pigmented villonodular synovitis, localized Report Electronically Signed Out guccik/05/14/2023Shanna Stern MD Interpretation performed at [facility], [address] [place] [address], License number: [id number]. Clinical History Right trigger thumb, right thumb mass. 1. Tumor thumb. Gross Description Received in formalin labeled damien SANTIAGO, digit R is a flores-meehan to pink-yellow, ovoid rubbery nodule, 1.4 x 1.2 x 0.6 cm. The specimen is inked black and sectioned to reveal flores-white to yellow, rubbery, dull and uniform cut surfaces. The specimen is entirely submitted in a single cassette. (1, gucci, [id number], m2) [facility]/05/06/2023SSI Specimen(s) Received Right hand digit Fee Codes(s): 1; [address] XR RIBS RT PA Randy 3 XR [...] BELLE ZHONG Date: 2022-05-29 11:45 Normal [facility] Coding Summary.on 09-24-2021 Coding Summary. [id number] Gh0 bWw+PGhlYWQ+LH3KURDwI17 dwVIylF7IU7uWFO7VYBVDUG VIZM7LQS3pgPC1BIyyZ7Esn iAv QfzdtMJaWE18SYt3OMW2zDg vGQenpU8hzOBgD8a7AwJfGR 69vC26NXpmEOEaKaV1ZjBzu jsgbWFy B4haXbQyaNHmLgr+PHRhYmx lIHdpZHRoPScxMDAlJyBzdH eyWD3oIx4rSCUcJJAxzKnvx HNlOiBj i4lnBONxTLwtUZ3yqRrjE2P maWT4XFRjz6p1Iv36fXJ+PH JpTRD1bBrlRPnmg676VlAml 3jpMHU5 bPCjFPurCNZ5V06pa7P2ZFH iNMFtAMU9wWU0mI7xxWitas gcA5IwdXJpUzT5ZHJ8eLMlq Y3ieHyw pyutuV2nKoa+R92UIK5AZRC GRC1YBdh4C3TbKvxcxEY+PC 69RVEdUH26gOYziFVzl6hkv Eh0GcQn ZUGkXJL9aYrwOTxfj1ObNLD hN08yvOJbk3B2XUTpgDvacL DrSvRzyLP5sY8fMTjigykfr 2hvdzsn Uxefv6tqbh70wT74E53jQSd uAJXuGEF3IWJqWFRezCirld 5jqK2aMf7+TKrtq6abt0gqa Oa1GrZm KETglsKhoRzcTSZ4y4AfDn7 2K9HitRsdk3FlJbs3lp48sA Jvl2N2rQT9VSrdDWQptD0gS WxlZnQ6 WWCkMmQcqV73oFRdVRcjBu2 emYhumBpxJC6jNKXnhwdjLY FusP6jYRUnrZErpSknLA5gX TBpbjtm k516YfZmYGR8SGSauOGlC6W rmU9lYrKoOELaXGChG6OdpK GnTBreU618TVbeJiG1BFCym wZdI8Ga UDEqgFbnZfO9g4T0Ch4Gv1T ipoozANJ4LVgpAES4BzYkVn LoFdZ0W5LiMob0GDJrgRhrM M6kA4Dw JIXgdytfbwmzmEZ1FPRiNDM mdY75lTTwKTnvUl4of1J2q6 42YLEnWSWpdV76Ys8etKuyJ TBwdCBU aM1bitcwy0ayxorkIoBrOCE kTQj5YIo1LSLflIjvOqDuOO U4StD0JWX8rYMadE2njQypo waymV3v Oyc+M23teA8oCSO0KHM1soo dVINyziAwGR93HQ77K8GaPq wvdGFibGU+PGRpdiBzdHlsZ K3bJcDr f3vzx7FfKEcrX9ZtYGVyWIc cQgj9KDRfWHF5kJM4mV9tFJ JvUGhxw4M9dSY1F1LrslItc y0jo7vo WQUfBJoxU33mdQSeh3M8FYI jmAI9TGWroTueReNdwF62Ti c+UJEjoVsnx4XnHgxfa4kpt 1ynuTz7 MtQvNHAvqcAbgEniLUL9y0U nGv05V90tSIlcCGVdIDVlVE WsSVByiReijw3meK4lDq6+P GNvbCB3 aXB9qB2ySZTtFjR2RZngL59 8GrWqdVHoVdocp7lro2ytkJ c5TxYtXHTbmiTqxWubIDA9i 6BtDd66 X71zLLhmEXXhUYHtWJOqWFC yaHdhny0yiO5xDg9+PC9jb2 scqf20kJ20qHF+FQDsAUE5l WxlPSdw FLJvoB0lVVuoTrA3WJVgZiW msP37eUNmRZxoFs2wnMxuiO kvKV2bOOUxbkfrr053HaFff 2xkIDEw wGWrTKtmUGD8R57go1C9CVU aNSStIZW0uPI1hQ0omSpzbs ogbGVmdDsgdmVydGljYWwtY QveG174 IHRvcDsnPlBhdGllbnQgTmF kNGk1D4FdWgj1ZFZfvBycTG 8uuDUmJYltAa4kjDqtlFzyE A8nEGPs fesgy185ZqVss3hiXZMtbML sCKvrRGO1N30sp6D9SXCjON MnSLA2sXX6rB6zgRpepkfra GVmdDsg fdJxqRjlPZgvQJmnX613KHB hrIonVhQutgPtWYYwkWE4FS 98YG73oLUdj9Y9aVH8C0SvT GRpbmct swftlPS8CYVbWCCtrZ15Ti8 wmLoeNt8rCAYbHZX4SHXobO JnI4YijE8qErOhZJPlJATxT 3RleHQt QUupB674AIusAxU3BHKtzmP xZ1BpPMBldVvpUdJ9x4I9Kq 4NJ4B3QT55HP05aJZkm9A3f EK9A6Ko ISAodmkfgehlwBN4MWPjCYU oiJ50Eh9ozJgcHa4mFVYuJJ K7TRMkmTFsZ9LcaK1mPyPmM DAwMDAw N8FhnYDgVBqxJ435JDqbVyR 4LFFjjcGkH3VeUBKaxJkbXk Y1g5D3Hw4LHUg1BH56YB22f FJns6B0 cVA9R6YgPUZsezywyjsrnPL 5PGXwXERksH06Pr6qrLdeQz 3iBYPiYHQ2APDndJEjE5Vmh A5vOeSq YGOzJQIgS4GnmFQkBIgxQ39 2BWqmKdQ0UQHoxkZnR8UqSM JqnPuqNlN9o6T4Ou8CIYHzA F67PRF5 rFM1DW12NU11G5MhXrauiJK ibGU+PHRhYmxlIHdpZHRoPS tvIHIvKoWodWuuXZ0uOv5kV GVyLWNv sExfhCPyLoIad6isQHIzBDa nKW5wdEamD8HmjME4LARhg8 k9Al19G17jI3NzkGP+PGNvb IR7tAW9 xO8pQtTpCqV1ZQqqB646BfY bqYRxDgnsy4dgk6mozKy8Cw P2OUJuwiSosWdxEAD4k4IjL n65K68v IHdpZHRoPSIxNSUiIHZhbGl gfr9aoQ2hEa9+CEUitAJ5xQ W6gT3kWmKiGxN8VWkiV876G nRvcCIv Ptrod1zkm7mvaHr5RqJrARJ kkvZdkGbgUEF8q2VfOf20N0 MfuYeho3JvMoc7nf53hPQau 7R2aQF8 E2IlMAKvmxcdiPGhnCcxBJ7 wLMLbqgjiPDFydQ4eMJBjQ5 p3YqSjJeG6WJkzL2OgemC8Z DEwcHQg KIltNJA8X60ky5U3ZJTkHUA xHKT4oFO0cE0jgTzshbiwqC VmdDsgdmVydGljYWwtYWxpZ 246IHRv cIzcXSKvsN1zLQLozBUhrZm kXS5qWKEzizdjUv1ITL9VYL CRWI4wMmvsdWO+BBCpHYQ2f WxlPSdw BXQzmG6bANRsV0j1UbYkEkW 2WMpuA4UuCPNxdhsmSy50lK 0cOnNfPjH6HEkiZ5OpjvO9D DEwcHQg ICpsUTA5M93iv9J5IJXwCHO lSAM9dVB9uN0asAfopfskjI VmdDsgdmVydGljYWwtYWxpZ 246IHRv sTrmAxW0RvCvHjE6ITL4A1S rZlc1WBTydXiqRT5ecWCaQD lxNf3ybYkwiThvKB8nIQKbk jtwYWRk kI2dKVRdtWYnlEonPJ8xVZZ uduwel365UbQrVGP1VEImhQ MbV9RvuL9xWiOxLCWuZUJvL 3RleHQt ZXnxH915YEvuXcU5JUDspqU eP7UiQOSjoCmhTjM0n4U6Do 42NiBZZWFyczwvdGQ+PHRkI QY3qKzq QMqfXQEhuD8tJMDqN1h1RbD pJkM6GJvwW7ZmBBGjjcfbZq 59rU3gFwFgNyU3LUrdB4Qvr qV6CQTu iCYkBSdhNIH1M53gu1J7SZN tIFTvVJM8zYO9hI2apXtzjw ogbGVmdDsgdmVydGljYWwtY GzeJ889 IHRvcDsnPkZlbWFsZTwvdGQ +NMPfVBD7xEtbMJluFVTkmF 6yDNToF4d1EyZzTiO9XWzdN 3BhZGRp rkwzPv86sV5sVgQmHxW0RHo gS0DyqzR6EKOsfKOiISqgAY D7M20lx0T7OASdGAIsFEA5v TM0wS4b bGlnbjogbGVmdDsgdmVydGl iVOlgUOuqL074VXFvmTfeUg ycGiHVbm5yYZ5lUoltbVL+P D28ko75 W4HmYfagEtj4GOJnWXN0oEU 8eI8kCMOkLMfqc3H4xPY4I9 HbcfNpzv9dw4feBDDfNVukV 29sbGFw o2Y3YZRqyCL2TDKpuQgpItM blP22Mfl+FIVndHqhu9RsEo fxl2mkm9yksYx3XrHpDXFqr mFsaWdu JZS0m4SoXe83N10cLLgaZRJ eIIHcKSJwOBPrcZhrjd7gvV 9wIi8+LCGamYN2eSE4vV2vB jAlIiB2 DUraR068VyLjeVCcTbcal4u pp8pmfNf9AlLkBWPlseWftV gxQSC0d8JsBa62N8UgiAkin 4TgBrn5 mh05nZTkc9C8hQL8L4IgVZZ tlpiolXObeCsnYN5uSWVgsx jmROCqiG1nEPFiN1u9PbMbI cQ9PUgt S8EbooU1NTTamORsLFOwvAY WpR2ffugdc3efgqrqQmXsSG EzXMh1YEg8QNLnoVikCtQxQ SE9XmU0 YZD6cIHgvC3ysQdmnkgahC4 wOyc+XOh5b5yqnHXaED3arN E5GO10WZ05sBAen9Z4jLU3Q 3BhZGRp tjfbgibudJB2OXMnOOPwpT4 1Ot6nuDlbRy0tKXZhALE6DH QooZHzB0HqyC4dSlLuIRWiY QErQ0Kq eKRdAJycX857DWaeKkT4FXG stzOlB9VnJLRiqIfiCqZ9p2 E8Zx9CYE80IL86OQ99vYQra 3O0fGF7 G5YqFMVtgpkzlcnijZU4MFV sZFFiqV04Rk6poDgqBp4vLF GvSVA2DFXhdGYbJ7ZtpR9nK iAjMDAw JNUzJ1LumTQdNCcbJ035ABz lOoV9HYYjhqNoX0LmCIFpzA olQoX0q8J1If3LRg17TC05R D90eCKz c7G2xVH2M8LjUWNugqmakjs ipKQ4JPTnMSEezE10Yy4diE trXt2oGUXsCDB5CCHwmMHkI 6AluR6v ZjChPRGeVESxA9UjfFLqAId qX087ABmaYyR1YYQwamFaD2 EsESAeeSjdLsB4r1R2Ue3UL Xllcjo8 L4DnMpsrhPV+ZU32KLZlLO2 5hDHsfDZto8anmWb3UvXwBA HcHIY9rXiwYYtue8EpYIGbS 29sbGFw c2U6 (more content not included)... [facility] Physician Orderon 09-17-2021 Physician Order [id number] D:127 [facility] Vital Signs Date Time Vital Sign Value Performing Clinician Facility 05-11-2024 08:37-0500 Body height 162.6 cm Nash Castaneda DPM Work Phone: [facility] 05-11-2024 08:37-0500 Body mass index (BMI) [Ratio] 38.79 kg/m2 Nash Castaneda DPM Work Phone: [facility] 05-11-2024 08:37-0500 Body weight 102.51 kg Nash Castaneda DPM Work Phone: [facility] 05-11-2024 08:37-0500 Respiratory rate 18 /min Nash Castaneda DPM Work Phone: [facility] 04-25-2024 13:31-0500 Body height 162.6 cm Feliberto Rodriguez MD Work Phone: [facility] 04-25-2024 13:31-0500 Body mass index (BMI) [Ratio] 38.79 kg/m2 Feliberto Rodriguez MD Work Phone: [facility] 04-25-2024 13:31-0500 Body weight 102.51 kg Feliberto Rodriguez MD Work Phone: [facility] 04-25-2024 13:31-0500 Diastolic blood pressure 68 mm[Hg] Feliberto Rodriguez MD Work Phone: [facility] 04-25-2024 13:31-0500 Heart rate 75 /min Feliberto Rodriguez MD Work Phone: [facility] 04-25-2024 13:31-0500 SaO2% (BldA) [Mass fraction] 97 % Feliberto Rodriguez MD Work Phone: [facility] 04-25-2024 13:31-0500 Systolic blood pressure 104 mm[Hg] Feliberto Rodriguez MD Work Phone: [facility] 04-20-2024 11:25-0500 Body height 162.6 cm Nash Castaneda DPM Work Phone: [facility] 04-20-2024 11:25-0500 Body mass index (BMI) [Ratio] 38.79 kg/m2 Nash Castaneda DPM Work Phone: [facility] 04-20-2024 11:25-0500 Body weight 102.51 kg Nash Castaneda DPM Work Phone: [facility] 04-20-2024 11:25-0500 Respiratory rate 18 /min Nash Castaneda DPM Work Phone: [facility] 04-10-2024 09:08-0500 Body height 162.6 cm Feliberto Rodriguez MD Work Phone: [facility] 04-10-2024 09:08-0500 Body mass index (BMI) [Ratio] 38.79 kg/m2 Feliberto Rodriguez MD Work Phone: [facility] 04-10-2024 09:08-0500 Body weight 102.51 kg Feliberto Rodriguez MD Work Phone: [facility] 04-10-2024 09:08-0500 Diastolic blood pressure 82 mm[Hg] Feliberto Rodriguez MD Work Phone: [facility] 04-10-2024 09:08-0500 Heart rate 78 /min Feliberto Rodriguez MD Work Phone: [facility] 04-10-2024 09:08-0500 SaO2% (BldA) [Mass fraction] 95 % Feliberto Rodriguez MD Work Phone: [facility] 04-10-2024 09:08-0500 Systolic blood pressure 134 mm[Hg] Feliberto Rodriguez MD Work Phone: [facility] 03-22-2024 13:41-0500 Body height 162.6 cm Nash Brown DPM Work Phone: [facility] 03-22-2024 13:41-0500 Body mass index (BMI) [Ratio] 38.45 kg/m2 Nash Castaneda DPM Work Phone: [facility] 03-22-2024 13:41-0500 Body weight 101.61 kg Nash Castaneda DPM Work Phone: [facility] 03-22-2024 13:41-0500 Diastolic blood pressure 80 mm[Hg] Nash Castaneda DPM Work Phone: [facility] 03-22-2024 13:41-0500 Heart rate 78 /min Nash Castaneda DPM Work Phone: [facility] 03-22-2024 13:41-0500 Systolic blood pressure 126 mm[Hg] Nash Castaneda DPM Work Phone: [facility] 03-06-2024 10:29-0400 Body height 162.6 cm Nash Brown DPM Work Phone: [facility] 03-06-2024 10:29-0400 Body mass index (BMI) [Ratio] 38.45 kg/m2 Nash Brown DPM Work Phone: [facility] 03-06-2024 10:29-0400 Body weight 101.61 kg Nash Castaneda DPM Work Phone: [facility] 03-06-2024 10:29-0400 Diastolic blood pressure 75 mm[Hg] Nash Brown DPM Work Phone: [facility] 03-06-2024 10:29-0400 Heart rate 81 /min Nash Brown DPM Work Phone: [facility] 03-06-2024 10:29-0400 Systolic blood pressure 123 mm[Hg] Nash Brown DPM Work Phone: [facility] 02-10-2024 11:37-0400 Body height 162.6 cm Nash Castaneda DPM Work Phone: [facility] 02-10-2024 11:37-0400 Body mass index (BMI) [Ratio] 38.45 kg/m2 Nash Brown DPM Work Phone: [facility] 02-10-2024 11:37-0400 Body weight 101.61 kg Nash Castaneda DPM Work Phone: [facility] 02-10-2024 11:37-0400 Diastolic blood pressure 80 mm[Hg] Nash Castaneda DPM Work Phone: [facility] 02-10-2024 11:37-0400 Heart rate 75 /min Nash Brown DPM Work Phone: [facility] 02-10-2024 11:37-0400 Respiratory rate 18 /min Nash Brown DPM Work Phone: [facility] 02-10-2024 11:37-0400 Systolic blood pressure 123 mm[Hg] Nash Brown DPM Work Phone: [facility] 10-27-2023 09:38-0400 Diastolic blood pressure 60 mm[Hg] Laura Caceres MD Work Phone: [facility] 10-27-2023 09:38-0400 Heart rate 75 /min Laura Caceres MD Work Phone: [facility] 10-27-2023 09:38-0400 Systolic blood pressure 118 mm[Hg] Laura Caceres MD Work Phone: [facility] 10-27-2023 09:37-0400 Body height 157.5 cm Laura Caceres MD Work Phone: [facility] 10-27-2023 09:37-0400 Body mass index (BMI) [Ratio] 41.15 kg/m2 Laura Caceres MD Work Phone: [facility] 10-27-2023 09:37-0400 Body weight 102.06 kg Laura Caceres MD Work Phone: [facility] 08-17-2022 14:15-0400 Body height 165.1 cm Marcela Kateryna Other [employer] Other 08-17-2022 14:15-0400 Body mass index (BMI) [Ratio] 38.27 kg/m2 Marcela Kateryna Other [employer] Other 08-17-2022 14:15-0400 Body temperature 98.9 [degF] Marcela Kateryna Other [employer] Other 08-17-2022 14:15-0400 Body weight 104.33 kg Marcela Kateryna Other [employer] Other 08-17-2022 14:15-0400 Diastolic blood pressure 71 mm[Hg] Marcela Kateryna Other [employer] Other 08-17-2022 14:15-0400 Respiratory rate 18 /min Marcela Avendaño Other [employer] Other 08-17-2022 14:15-0400 SaO2% (BldA) [Mass fraction] 98 % Marcela Avendaño Other [employer] Other 08-17-2022 14:15-0400 Systolic blood pressure 139 mm[Hg] Marcela Avendaño Other [employer] Other 05-29-2022 11:05-0500 Body height 157.48 cm Consuelo De Dios Other [employer] Other 05-29-2022 11:05-0500 Body mass index (BMI) [Ratio] 41.88 kg/m2 Consuelo De Dios Other [employer] Other 05-29-2022 11:05-0500 Body temperature 97.3 [degF] Consuelo De Dios Other [employer] Other 05-29-2022 11:05-0500 Body weight 103.87 kg Consuelo De Dios Other [employer] Other 05-29-2022 11:05-0500 Respiratory rate 18 /min Consuelo De Dios Other [employer] Other 05-29-2022 11:05-0500 SaO2% (BldA) [Mass fraction] 97 % Consuelo De Dios Other [employer] Other Encounters Encounter Date Encounter Type Care Provider Facility Start: 05-11-2024 End: 05-11-2024 Jorge Castaneda DP Work Phone: [facility] Start: 05-11-2024 End: 05-11-2024 Bamboo flowsheet Nash Castaneda DPM Work Phone: [facility] Start: 05-11-2024 End: 05-11-2024 Postop follow up visit related to original px Nash Castaneda DPM Work Phone: [facility] Comment on above: Hallux rigidus of ri ght foot (Primary Dx); Metatarsal deformity, right; Acquired deformity of right toe; Plantar plate injury, right, initial encounter; Acute deep vein thrombosis (DVT) of popliteal vein of right lower extremity (CMS/HCC) Start: 04-25-2024 End: 04-25-2024 Office outpatient visit 25 minutes Feliberto Rodriguez MD Work Phone: [facility] Comment on above: Preoperative clearan ce (Primary Dx); Vitamin D deficiency Start: 04-25-2024 End: 04-25-2024 Preoperative state Feliberto Rodriguez MD Work Phone: [facility] Work Phone: Start: 04-25-2024 End: 04-25-2024 ambulatory FELIBERTO ANNA Not Available Start: 04-20-2024 End: 04-20-2024 Office outpatient visit 25 minutes Nash Castaneda DPM Work Phone: [facility] Comment on above: Hallux rigidus of ri ght foot (Primary Dx); Metatarsal deformity, right; Acquired deformity of right toe; Plantar plate injury, right, initial encounter; Onychomycosis; Toe pain, left; Toe pain, right Start: 04-20-2024 End: 04-20-2024 ambulatory NASH CASTANEDA Not Available Start: 04-19-2024 End: 04-19-2024 ambulatory FELIBERTO RODRIGUEZ Not Available Start: 04-17-2024 End: 04-17-2024 Clinisync Result Encounter Generic External Data Provider [facility] Unsolicited Start: 04-17-2024 End: 04-17-2024 Clinisync Result Encounter Generic External Data Provider [facility] External Department Unsolicited Start: 04-10-2024 End: 04-10-2024 Office outpatient visit 25 minutes Feliberto Rodriguez MD Work Phone: [facility] Comment on above: Localized swelling o f left foot (Primary Dx); Arthritis of left knee; Primary hypertension (CMS/HCC); Localized swelling of left lower leg Start: 04-10-2024 End: 04-10-2024 ambulatory FELIBERTO RODRIGUEZ Not Available Start: 03-23-2024 End: 03-24-2024 ambulatory Vidya Robert HOUSE MANAGER Work Phone: [facility] Comment on above: Acute postoperative pain of left knee (Primary Dx) Start: 03-22-2024 End: 03-22-2024 Office outpatient visit 15 minutes Nash Castaneda DPM Work Phone: [facility] Comment on above: Hallux rigidus of ri ght foot (Primary Dx); Metatarsal deformity, right; Acquired deformity of right toe; Plantar plate injury, right, initial encounter Start: 03-22-2024 End: 03-22-2024 ambulatory NASH CASTANEDA Not Available Start: 03-21-2024 End: 03-21-2024 ambulatory Tammy Harris HOUSE MANAGER [facility] Comment on above: Acute postoperative pain of left knee (Primary Dx); Arthritis of left knee Start: 03-21-2024 End: 03-21-2024 Bamboo flowsheet aTmmy Flahertytersall HOUSE MANAGER [facility] Start: 03-21-2024 End: 03-21-2024 Bamboo flowsheet Tammy Nuratersall HOUSE MANAGER [facility] Start: 03-16-2024 End: 03-16-2024 Bamboo flowsheet Vidya Robert HOUSE MANAGER Work Phone: [facility] Start: 03-16-2024 End: 03-16-2024 Bamboo flowsheet Vidya Robert HOUSE MANAGER Work Phone: [facility] Start: 03-16-2024 End: 03-16-2024 ambulatory Vidya Robert HOUSE MANAGER Work Phone: [facility] Comment on above: Acute postoperative pain of left knee (Primary Dx) Start: 03-14-2024 End: 03-14-2024 ambulatory TAMMY HARRIS Not Available Start: 03-09-2024 End: 03-09-2024 ambulatory Vidya Robert HOUSE MANAGER Work Phone: [facility] Comment on above: Acute postoperative pain of left knee (Primary Dx) Start: 03-07-2024 End: 03-07-2024 Bamboo flowsheet Tammy Harris HOUSE MANAGER [facility] Start: 03-07-2024 End: 03-07-2024 Bamboo flowsheet Tammy Harris HOUSE MANAGER [facility] Start: 03-07-2024 End: 03-07-2024 ambulatory Tammy Hraris HOUSE MANAGER [facility] Comment on above: Acute postoperative pain of left knee (Primary Dx); Arthritis of left knee Start: 03-06-2024 End: 03-06-2024 Bamboo flowsheet Nash Castaneda DPM Work Phone: [facility] Start: 03-06-2024 End: 03-06-2024 Bamboo flowsheet Nash Castaneda DPM Work Phone: [facility] Start: 03-06-2024 End: 03-06-2024 ambulatory NASH CASTANEDA Not Available Start: 03-06-2024 End: 03-06-2024 Office outpatient visit 15 minutes Nash Castaneda DPM Work Phone: [facility] Comment on above: Hallux rigidus of ri ght foot (Primary Dx); Metatarsal deformity, right; Acquired deformity of right toe; Plantar plate injury, right, initial encounter Start: 03-06-2024 End: 03-06-2024 ambulatory NASH CASTANEDA Not Available Start: 03-02-2024 End: 03-02-2024 ambulatory BRIANA ABREU Not Available Start: 03-02-2024 End: 03-02-2024 Postop follow up visit related to original px Briana Abreu DO Work Phone: [facility] Comment on above: Status post left kne e replacement (Primary Dx) Start: 03-01-2024 End: 03-01-2024 Bamboo flowsheet Ni Willis Briseida PT Work Phone: [facility] Start: 03-01-2024 End: 03-01-2024 Bamboo flowsheet Ni Willis Briseida PT Work Phone: [facility] Start: 03-01-2024 End: 03-01-2024 ambulatory Ni Willis Briseida PT Work Phone: [facility] Comment on above: Acute postoperative pain of left knee (Primary Dx); Arthritis of left knee Start: 02-24-2024 End: 02-24-2024 ambulatory Tammy lFahertytersall HOUSE MANAGER [facility] Comment on above: Acute postoperative pain of left knee (Primary Dx); Arthritis of left knee Start: 02-23-2024 End: 02-23-2024 Bamboo flowsheet Vidya Robert HOUSE MANAGER Work Phone: [facility] Start: 02-23-2024 End: 02-23-2024 Bamboo flowsheet Vidya Robert HOUSE MANAGER Work Phone: [facility] Start: 02-23-2024 End: 02-24-2024 ambulatory Vidya Robert HOUSE MANAGER Work Phone: [facility] Comment on above: Acute postoperative pain of left knee (Primary Dx); Arthritis of left knee Start: 02-17-2024 End: 02-17-2024 Bamboo flowsheet Tammy Flahertytersall HOUSE MANAGER [facility] Start: 02-17-2024 End: 02-17-2024 Bamboo flowsheet Tammy Flahertytersall HOUSE MANAGER [facility] Start: 02-17-2024 End: 02-17-2024 ambulatory Tammy Flahertytersall HOUSE MANAGER [facility] Comment on above: Acute postoperative pain of left knee (Primary Dx); Arthritis of left knee Start: 02-16-2024 End: 02-16-2024 Bamboo flowsheet Vidya Robert HOUSE MANAGER Work Phone: [facility] Start: 02-16-2024 End: 02-16-2024 Bamboo flowsheet Vidya Robert HOUSE MANAGER Work Phone: [facility] Start: 02-16-2024 End: 02-16-2024 ambulatory Vidya Robert HOUSE MANAGER Work Phone: [facility] Comment on above: Acute postoperative pain of left knee (Primary Dx); Arthritis of left knee; Lumbar paraspinal muscle spasm; Acute right-sided low back pain with right-sided sciatica Start: 02-10-2024 End: 02-10-2024 Office outpatient visit 15 minutes Nash Castaneda DPM Work Phone: [facility] Comment on above: Metatarsal deformity , right (Primary Dx); Onychomycosis; Toe pain, left; Toe pain, right; Hallux rigidus of right foot; Acquired deformity of right toe Start: 02-10-2024 End: 02-10-2024 ambulatory NASH CASTANEDA Not Available Start: 02-09-2024 End: 02-09-2024 Bamboo flowsheet Tammy Harris HOUSE MANAGER [facility] Start: 02-09-2024 End: 02-09-2024 Bamboo flowsheet Tammy Harris HOUSE MANAGER [facility] Start: 02-09-2024 End: 02-09-2024 ambulatory TAMMY FLAHERTYELIER [facility] Comment on above: Acute postoperative pain of left knee (Primary Dx) Start: 02-07-2024 End: 02-07-2024 Bamboo flowsheet Ni J Briseida PT Work Phone: [facility] Start: 02-07-2024 End: 02-07-2024 Bamboo flowsheet Ni J Briseida PT Work Phone: [facility] Start: 02-07-2024 End: 02-07-2024 ambulatory NI GOINS [facility] Comment on above: Acute postoperative pain of left knee (Primary Dx); Arthritis of left knee Start: 02-04-2024 End: 02-04-2024 Bamboo flowsheet Ni J Briseida PT Work Phone: [facility] Start: 02-04-2024 End: 02-04-2024 Bamboo flowsheet Ni Goins PT Work Phone: [facility] Start: 02-04-2024 End: 02-04-2024 ambulatory NI GOINS [facility] Comment on above: Acute postoperative pain of left knee (Primary Dx); Arthritis of left knee Start: 02-02-2024 End: 02-02-2024 Bamboo flowsheet Vidyahanna Robert HOUSE MANAGER Work Phone: [facility] Start: 02-02-2024 End: 02-02-2024 Bamboo flowsheet Vidya Robert HOUSE MANAGER Work Phone: [facility] Start: 02-02-2024 End: 02-02-2024 ambulatory VIDYA ROBERT [facility] Comment on above: Acute postoperative pain of left knee (Primary Dx) Start: 01-31-2024 End: 01-31-2024 Bamboo flowsheet Vidyahanna Robert HOUSE MANAGER Work Phone: [facility] Start: 01-31-2024 End: 01-31-2024 Bamboo flowsheet Vidya Robert HOUSE MANAGER Work Phone: [facility] Start: 01-31-2024 End: 02-01-2024 ambulatory VIDYA ROBERT [facility] Comment on above: Acute postoperative pain of left knee (Primary Dx) Start: 01-20-2024 End: 01-20-2024 Postop follow up visit related to original px Briana Abreu DO Work Phone: [facility] Comment on above: Arthritis of left kn ee; Status post left knee replacement Start: 01-20-2024 End: 01-20-2024 ambulatory BRIANA ABREU Not Available Start: 01-19-2024 End: 01-20-2024 ambulatory NI GOINS [facility] Comment on above: Acute postoperative pain of left knee (Primary Dx); Arthritis of left knee Start: 01-19-2024 End: 01-19-2024 Bamboo flowsheet Ni Goins PT Work Phone: [facility] Start: 01-19-2024 End: 01-19-2024 Bamboo flowsheet Ni Goins PT Work Phone: [facility] Start: 01-14-2024 End: 01-14-2024 Bamboo flowsheet Vidya Robert HOUSE MANAGER Work Phone: [facility] Start: 01-14-2024 End: 01-14-2024 Bamboo flowsheet Vidya Robert HOUSE MANAGER Work Phone: [facility] Start: 01-14-2024 End: 01-14-2024 ambulatory VIDYA ROBERT [facility] Comment on above: Acute postoperative pain of left knee (Primary Dx) Start: 01-12-2024 End: 01-12-2024 Bamboo flowsheet Vidya Robert HOUSE MANAGER Work Phone: [facility] Start: 01-12-2024 End: 01-12-2024 Bamboo flowsheet Vidya Robert HOUSE MANAGER Work Phone: [facility] Start: 01-12-2024 End: 01-12-2024 ambulatory VIDYA ROBERT [facility] Comment on above: Acute postoperative pain of left knee (Primary Dx); Arthritis of left knee Start: 01-10-2024 End: 01-10-2024 Bamboo flowsheet Vidya Robert HOUSE MANAGER Work Phone: [facility] Start: 01-10-2024 End: 01-10-2024 Bamboo flowsheet Vidya Robert HOUSE MANAGER Work Phone: [facility] Start: 01-10-2024 End: 01-10-2024 ambulatory VIDYA ROBERT [facility] Comment on above: Acute postoperative pain of left knee (Primary Dx); Arthritis of left knee Start: 01-06-2024 End: 01-06-2024 ambulatory VIDYA ROBERT [facility] Comment on above: Acute postoperative pain of left knee (Primary Dx) Start: 01-04-2024 End: 01-04-2024 Bamboo flowsheet Ni Willis Briseida PT Work Phone: [facility] Start: 01-04-2024 End: 01-04-2024 Bamboo flowsheet Ni Goins PT Work Phone: [facility] Start: 01-04-2024 End: 01-05-2024 ambulatory NI GOINS [facility] Comment on above: Acute postoperative pain of left knee (Primary Dx) Start: 12-28-2023 End: 12-28-2023 ambulatory AMIRA LOYD Not Available Start: 12-27-2023 End: 12-27-2023 ambulatory AMIRA LOYD Not Available Start: 12-23-2023 End: 12-23-2023 ambulatory [facility] Not Available Start: 12-22-2023 End: 12-22-2023 ambulatory AMIRA LOYD Not Available Start: 12-17-2023 End: 12-17-2023 Evaluation and management of inpatient [facility] Start: 12-15-2023 End: 12-16-2023 ambulatory [facility] Start: 12-09-2023 End: 12-09-2023 ambulatory [facility] Start: 12-02-2023 Preoperative state Vidya Wr ight HOUSE MANAGER Work Phone: [facility] Start: 12-02-2023 End: 12-02-2023 ambulatory LESTERHANNA Murdock MICHAEL Not Available Start: 12-02-2023 End: 12-02-2023 ambulatory NASH CASTANEDA Not Available Start: 11-23-2023 End: 11-23-2023 ambulatory [facility] Start: 11-16-2023 End: 11-16-2023 ambulatory [facility] Not Available Start: 10-27-2023 End: 10-27-2023 Office consultation new/estab patient 60 min Laura Caceres MD Work Phone: [facility] Comment on above: Atrial fibrillation by electrocardiogram (Multi); Intermittent atrial fibrillation (Multi) Start: 10-27-2023 End: 10-27-2023 ambulatory LAURA CACERES [facility] Ambulatory Start: 10-07-2023 End: 10-07-2023 ambulatory FELIBERTO Murdock MICHAEL Not Available Start: 10-06-2023 End: 10-06-2023 ambulatory MARLENY HIDALGO [facility] Start: 10-06-2023 End: 10-06-2023 ambulatory [facility] Tony [facility] Start: 09-30-2023 End: 09-30-2023 ambulatory [facility] Start: 09-28-2023 End: 09-28-2023 ambulatory RUGHANNA Murdock MICHAEL Not Available Start: 09-16-2023 End: 09-16-2023 ambulatory NASH CASTANEDA Not Available Start: 09-09-2023 End: 09-09-2023 ambulatory BRIANA ABREU Not Available Start: 09-09-2023 End: 09-09-2023 ambulatory [facility] Collette MICHAEL [facility] Start: 09-09-2023 Encounter for other preprocedural examination [facility] Start: 09-09-2023 End: 09-09-2023 ambulatory BRIANA ABREU Not Available Start: 09-02-2023 End: 09-02-2023 ambulatory [facility] Not Available Start: 08-10-2023 End: 08-10-2023 ambulatory NI GOINS Not Available Start: 07-20-2023 End: 07-20-2023 ambulatory BRIANA ABREU Not Available Start: 07-08-2023 End: 07-08-2023 ambulatory NASH CASTANEDA Not Available Start: 06-22-2023 End: 06-22-2023 Office outpatient visit 25 minutes Briana Abreu DO Work Phone: [facility] Comment on above: Arthritis of left kn ee (Primary Dx); Chronic pain of left knee Start: 06-22-2023 End: 06-22-2023 ambulatory BRIANA ABREU Not Available Start: 06-08-2023 End: 06-08-2023 ambulatory BRIANA ABREU Not Available Start: 05-27-2023 End: 05-27-2023 ambulatory BRIANA ABREU Not Available Start: 05-20-2023 End: 05-20-2023 ambulatory KORY GARCIA Not Available Start: 05-18-2023 End: 05-18-2023 ambulatory LAVELL GARCIA Not Available Start: 05-13-2023 End: 05-13-2023 ambulatory BRIANA ABREU Not Available Start: 05-06-2023 End: 05-06-2023 ambulatory KORY GARCIA Not Available Start: 05-05-2023 End: 05-05-2023 Evaluation and management of inpatient BRIANA ABREU [facility] Start: 05-04-2023 End: 05-04-2023 [facility] Start: 04-29-2023 End: 04-29-2023 ambulatory ESTEPHANIA CHAMPION Not Available Start: 08-17-2022 End: 08-17-2022 ambulatory Marcela Avendaño Other [employer] Other Start: 08-17-2022 Office outpatient vi sit 15 minutes Marcela Avendaño [facility] Start: 05-29-2022 Patient encounter procedure Consuelo Ke ller [facility] Start: 05-29-2022 End: 05-29-[address] FELIBERTO RODRIGUEZ [employer] Other Start: 09-17-2021 End: 09-17-2021 Lab Drop off Nash Castaneda [facility] Procedures Date Procedure Procedure Detail Performing Clinician Start: 05-11-2024 Radex foot complete minimum 3 views Nash Castaneda DPM Work Phone: Start: 04-17-2024 ALL CBC WITH AUTO DIFF Generic External Data Provider Start: 01-20-2024 Radiologic examinati on knee 1/2 views Briana Tony Abreu DO Work Phone: Start: 10-27-2023 Ecg routine ecg w/le ast 12 lds w/i&r Laura Caceres MD Work Phone: Start: 09-30-2023 Mammography Vidya W right HOUSE MANAGER Work Phone: Start: 06-22-2023 Arthrocentesis aspir &/inj major jt/bursa w/o us Briana Abreu DO Work Phone: Start: 04-07-2022 Mammography Briana drake DO Work Phone: Start: 10-01-2014 Colonoscopy Briana drake DO Work Phone: Plan of Treatment Date Care Activity Detail Author Start: 01-11-2029 DTaP/Tdap/Td Vaccine s (2 - Td or Tdap) DTaP/Tdap/Td Vaccines (2 - Td or Tdap) [facility] Start: 05-23-2025 Screening for malign ant neoplasm of colon [facility] Start: 10-10-2024 End: 10-10-2024 Patient encounter procedure 10/10/2024 9:00 AM EDT Office Visit [facility] [address] [facility] [address] [place] [phone] Feliberto Rodriguez MD [address] [facility] [address] [place] [address] [facility] Start: 10-01-2024 Screening for malign ant neoplasm of colon Colonoscopy [facility] Start: 09-29-2024 Screening for malign ant neoplasm of breast Mammogram [facility] Start: 07-06-2024 End: 07-06-2024 Patient encounter procedure 07/06/2024 11:30 AM EST Procedure Visit [facility] [address] [facility] [address] [place] [address] Nash Castaneda, DPCollette [address] [facility] [address] [place] [address] [facility] Start: 06-01-2024 End: 06-01-2024 Patient encounter procedure 06/01/2024 9:00 AM EST Office Visit [facility] [address] [place] [address] Kalia Packer, TRACK HELPER [address] [place] [address] [facility] Start: 05-18-2024 End: 05-18-2024 Patient encounter procedure 05/18/2024 10:00 AM EST Office Visit [facility] [address] [facility] [address] [place] [phone] Nash Castaneda DPM [address] [facility] 5 [place] [address] [facility] Start: 05-11-2024 End: 06-11-2024 US.doppler Lower extremity vein - right Vascular US lower extremity venous duplex right Imaging STAT Acute deep vein thrombosis (DVT) of popliteal vein of right lower extremity (CMS/HCC) Expected: 05/11/2024, Expires: 06/11/2024 [facility] Work Phone: Comment on above: Expected: 05/11/2024 , Expires: 06/11/2024 Start: 05-11-2024 End: 05-11-2024 Patient encounter procedure [facility] Comment on above: Hallux rigidus of ri ght foot (Primary Dx); Metatarsal deformity, right; Acquired deformity of right toe; Plantar plate injury, right, initial encounter; Acute deep vein thrombosis (DVT) of popliteal vein of right lower extremity (CMS/HCC) Start: 04-25-2024 End: 04-25-2024 Patient encounter procedure 04/25/2024 1:30 PM EST Office Visit [facility] [address] [facility] [address] [place] [address] Feliberto Rodriguez MD 112 [facility] [address] [place] [address] [facility] Start: 04-20-2024 End: 04-20-2024 Patient encounter procedure 04/20/2024 11:30 AM EST Procedure Visit [facility] [address] [facility] [address] [place] [phone] Nash Castaneda DPM [address] [address] [facility] Start: 04-10-2024 End: 04-10-2025 US.doppler Lower extremity vein - left Vascular US lower extremity venous duplex left Imaging Routine Localized swelling of left lower leg Expected: 04/10/2024, Expires: 04/10/2025 [facility] Work Phone: Comment on above: Expected: 04/10/2024 , Expires: 04/10/2025 Start: 04-10-2024 End: 04-10-2024 Patient encounter procedure 04/10/2024 9:00 AM EST Office Visit [facility] [address] [facility] [address] [place] [phone] Feliberto Rodriguez MD [address] [facility] [address] [place] [address] [facility] Start: 03-23-2024 End: 03-23-2024 ambulatory [facility] Start: 03-22-2024 End: 03-22-2024 Patient encounter procedure 03/22/2024 1:50 PM EST Office Visit [facility] [address] [place] [phone] Nash Castaneda DPCollette [address] [address] [facility] Start: 03-21-2024 End: 03-21-2024 ambulatory [facility] Comment on above: Arrived Start: 03-16-2024 End: 03-16-2024 ambulatory [facility] Comment on above: Arrived Start: 03-14-2024 End: 03-14-2024 ambulatory [facility] Start: 03-09-2024 End: 03-09-2024 ambulatory 03/09/2024 12:00 PM EDT Treatment [facility] [address] [place] [phone] Vidya Robert, LAYLA [address] [place] [address] [facility] Start: 03-07-2024 End: 03-07-2024 ambulatory 03/07/2024 12:00 PM EDT Treatment [facility] [address] [place] [phone] Tammy Harris PTA [facility] Start: 03-06-2024 End: 03-06-2024 Professional / ancillary services management 03/06/2024 12:00 PM EDT Ancillary Procedure [facility] [address] [place] [phone] Arrived [facility] Comment on above: Arrived Start: 03-06-2024 End: 03-06-2024 Patient encounter procedure [facility] Comment on above: Hallux rigidus of ri ght foot (Primary Dx); Metatarsal deformity, right; Acquired deformity of right toe; Plantar plate injury, right, initial encounter Start: 03-02-2024 End: 03-02-2024 ambulatory 03/02/2024 12:00 PM EDT Treatment [facility] [address] [place] [phone] Vidya Robert PTA [address] [place] [address] [facility] Start: 03-02-2024 End: 03-02-2024 Patient encounter procedure 03/02/2024 9:15 AM EDT Office Visit [facility] [address] [place] [phone] Briana Abreu, DO [address] [address] [facility] Start: 03-01-2024 End: 03-01-2024 ambulatory 03/01/2024 10:30 AM EDT Treatment [facility] [address] [place] [address] Ni Goins, PT [address] [place] [address] Arrived [facility] Comment on above: Arrived Start: 02-29-2024 End: 02-29-2024 ambulatory 02/29/2024 12:00 PM EDT Treatment [facility] [address] [place] [phone] Tammy Harris PTA [facility] Start: 02-24-2024 End: 02-24-2024 ambulatory 02/24/2024 12:00 PM EDT Treatment [facility] [address] [place] [phone] Tammy Harris PTA [facility] Start: 02-24-2024 End: 02-24-2024 Patient encounter procedure 02/24/2024 10:40 AM EDT Office Visit [facility] [address] [facility] [address] [place] [phone] Nash Castaneda, DPM [address] [facility] 5 [place] [address] [facility] Start: 02-17-2024 End: 02-17-2024 ambulatory [facility] Comment on above: Acute postoperative pain of left knee (Primary Dx) Start: 02-16-2024 End: 02-16-2024 ambulatory 02/16/2024 12:30 PM EDT Treatment [facility] [address] [place] [phone] Vidya Robert, HOUSE MANAGER [address] [place] [address] [facility] Start: 02-14-2024 End: 02-14-2024 ambulatory 02/14/2024 12:30 PM EDT Treatment [facility] [address] [place] [phone] Vidya Robert, HOUSE MANAGER [address] [place] [address] [facility] Start: 02-10-2024 End: 02-10-2024 Patient encounter procedure 02/10/2024 11:40 AM EDT Procedure Visit [facility] [address] [facility] [address] [place] [phone] Nash Castaneda, DPM [address] [facility] 5 [place] [address] [facility] Start: 02-09-2024 End: 02-09-2024 ambulatory [facility] Comment on above: Arrived Start: 02-07-2024 End: 02-07-2024 ambulatory 02/07/2024 9:30 AM EDT Treatment [facility] [address] [place] [phone] Ni Goins, PT [address] [facility] [facility] [place] [address] [facility] Start: 02-04-2024 End: 02-04-2024 ambulatory [facility] Comment on above: Arrived Start: 02-02-2024 End: 02-02-2024 ambulatory 02/02/2024 12:30 PM EDT Treatment [facility] [address] [place] [phone] Vidya Robert, HOUSE MANAGER [address] [place] [address] [facility] Start: 01-28-2024 End: 01-28-2024 ambulatory [facility] Start: 01-26-2024 End: 01-26-2024 ambulatory 01/26/2024 12:30 PM EDT Treatment [facility] [address] [place] [phone] Vidya Robert, HOUSE MANAGER [address] [place] [address] [facility] Start: 01-24-2024 End: 01-24-2024 ambulatory 01/24/2024 12:30 PM EDT Treatment [facility] [address] [place] [phone] Vidya Robert, HOUSE MANAGER [address] [place] [address] [facility] Start: 01-20-2024 End: 01-20-2024 ambulatory 01/20/2024 3:00 PM EDT Treatment [facility] [address] [place] [phone] Vidya Robert, HOUSE MANAGER [address] [place] [address] [facility] Start: 01-20-2024 End: 01-20-2024 Patient encounter procedure 01/20/2024 9:00 AM EDT Office Visit [facility] [address] [place] [phone] Briana Abreu, DO [address] [place] [address] [facility] Start: 01-19-2024 End: 01-19-2024 ambulatory [facility] Comment on above: Arrived Start: 01-16-2024 Influenza vaccination Influenza Vacc ine (#1) [facility] Start: 01-14-2024 End: 01-14-2024 ambulatory [facility] Comment on above: Arrived Start: 01-12-2024 End: 01-12-2024 ambulatory 01/12/2024 12:30 PM EDT Treatment [facility] [address] [place] [phone] Vidya Robert, HOUSE MANAGER [address] [place] [address] [facility] Start: 01-10-2024 End: 01-10-2024 ambulatory 01/10/2024 12:30 PM EDT Treatment [facility] [address] [place] [phone] Vidya Robert, HOUSE MANAGER [address] [place] [address] [facility] Start: 01-06-2024 End: 01-06-2024 ambulatory 01/06/2024 10:30 AM EDT Treatment [facility] [address] [place] [phone] Vidya Robert, HOUSE MANAGER [address] [place] [address] [facility] Start: 10-13-2023 End: 10-13-2023 Patient encounter procedure 10/13/2023 1:00 PM EDT Office Visit [facility] [address] [place] [address] Man Gonzales MD [address] [place] [address] [facility] Start: 07-20-2023 End: 07-20-2023 Patient encounter procedure 07/20/2023 1:00 PM EST Office Visit [facility] [address] [place] [address] Briana Abreu DO [address] [place] [address] [facility] Start: 07-08-2023 End: 07-08-2023 Patient encounter procedure 07/08/2023 1:00 PM EST Procedure Visit [facility] [address] [place] [address] Nash Castaneda DPM [address] [facility] [address] [place] [address] [facility] Start: 04-07-2023 Screening for malign ant neoplasm of breast Mammogram [facility] Start: 01-15-2023 COVID-19 Vaccine ( season) COVID-19 Vaccine ( season) [facility] Start: 02-14-2020 Pneumococcal Vaccine : 65+ Years (1 - PCV) Pneumococcal Vaccine: 65+ Years (1 - PCV) [facility] Start: 02-14-2020 Pneumococcal Vaccine : 65+ Years (1 of 1 - PCV) Pneumococcal Vaccine: 65+ Years (1 of 1 - PCV) [facility] Start: 07-11-2015 Zoster Vaccines (2 o f 3) Zoster Vaccines (2 of 3) [facility] Start: 2015 RSV patient s and/or patients aged 60+ years (1 - 1-dose 60+ series) RSV patients and/or patients aged 60+ years (1 - 1-dose 60+ series) [facility] Start: 1973 Diabetes mellitus screening Diabetes Screening [facility] Start: 1973 Hepatitis C screening Hepatitis C [facility] Start: 1955 Lipid panel Lipid Panel [facility] Start: 1955 Screening for malign ant neoplasm of colon [facility] Start: 1955 Screening for osteoporosis Bone Density Scan [facility] Start: 1955 Yearly Adult Physical Yearly Adult P hysical [facility] XR Foot - right 3 Views XR foot 3+ views right Imaging Routine Hallux rigidus of right foot 03/06/2024 11:57 AM EDT [facility] Work Phone: Immunizations Immunization Date Immunization Notes Care Provider Soren rausch 03-04-2023 Influenza, High-dose Seasonal, Quadrivalent, Preservative Free Briana Abreu DO Work Phone: [facility] 03-04-2023 influenza virus vaccine, unspecified formulation Vidya Robert HOUSE MANAGER Work Phone: [facility] 02-24-2022 influenza, injectable, quadrivalent, preservative free Briana Abreu DO Work Phone: [facility] 04-08-2021 influenza, high dose seasonal, preservative-free Briana Abreu DO Work Phone: [facility] 02-25-2019 influenza, injectable, quadrivalent, contains preservative Briana Abreu DO Work Phone: [facility] 01-11-2019 tetanus toxoid, reduced diphtheria toxoid, and acellular pertussis vaccine, adsorbed Consuelo De Dios Other [employer] Other 04-06-2016 influenza virus vaccine, split virus (incl. purified surface antigen) Briana Abreu DO Work Phone: [facility] 05-16-2015 influenza, injectable, quadrivalent, preservative free Briana Abreu DO Work Phone: [facility] 05-16-2015 zoster vaccine, live Briana mack DO Work Phone: [facility] Payers Date Payer Category Payer [facility] Health Insurance [facility] [address] [id number] 5 2022 Unknown [id number] .[id number] 2020 Medicare [id number] 1959 Unknown [id number] 2.16.840.1.456826.19 1955 Unknown [id number] 2.16.840.1.329463.3.579 .2.593 1955 Unknown [id number] 2.16.840.1.003743.3.579 .2.1244 1955 Unknown [id number] 2.16.840.1.575430.3.579 .2.1285 1955 Unknown [id number] 2.16.840.1.324018.3.579 .2.1285 1955 Unknown [id number] 2.16.840.1.588872.3.579 .2.1285 1955 Unknown [id number] 2.16.840.1.609488.3.579 .2.1285 1955 Unknown [id number] 2.16.840.1.372809.3.579 .2.1285 1955 Unknown [id number] 2.16.840.1.507001.3.579 .2.1285 1955 Unknown [id number] 2.16.840.1.315196.3.579 .2.1285 1955 Unknown [id number] 2.16.840.1.278854.3.579 .2.1285 1955 Unknown [id number] 2.16.840.1.749543.3.579 .2.1285 1955 Unknown [id number] 2.16.840.1.275854.3.579 .2.1285 1955 Unknown [id number] 2.16.840.1.610043.3.579 .2.1285 1955 Unknown [id number] 2.16.840.1.748858.3.579 .2.1285 1955 Unknown [id number] 2.16.840.1.056358.3.579 .2.1285 1955 Unknown [id number] 2.16.840.1.651416.3.579 .2.1286 1955 Unknown [id number] 2.16.840.1.823761.3.579 .2.1286 1955 Unknown [id number] 2.16.840.1.204742.3.579 .2.1258 1955 Unknown [id number] 2.16.840.1.076691.3.579 .2.1258 1955 Unknown [id number] 2.16.840.1.840828.3.579 .2.1258 1955 Unknown [id number] 2.16.840.1.238681.3.579 .2.1258 1955 Unknown [id number] 2.16.840.1.623323.3.579 .2.1258 1955 Unknown [id number] 2.16.840.1.684876.3.579 .2.1258 1955 Unknown [id number] 2.16.840.1.497062.3.579 .2.1258 1955 Unknown [id number] 2.16.840.1.521592.3.579 .2.1258 1955 Unknown [id number] 2.16.840.1.100308.3.579 .2.1258 1955 Unknown [id number] 2.16.840.1.289548.3.579 .2.1258 1955 Unknown [id number] 2.16.840.1.212300.3.579 .2.1258 1955 Unknown [id number] 2.16.840.1.881467.3.579 .2.1258 1955 Unknown [id number] 2.16.840.1.547786.3.579 .2.1258 1955 Unknown [id number] 2.16.840.1.505130.3.579 .2.1258 1955 Unknown [id number] 2.16.840.1.307865.3.579 .2.1258 1955 Unknown [id number] 2.16.840.1.798035.3.579 .2.1258 1955 Unknown [id number] 2.16.840.1.478696.3.579 .2.1258 1955 Unknown [id number] 2.16.840.1.969729.3.579 .2.1258 1955 Unknown [id number] 2.16.840.1.134066.3.579 .2.1258 1955 Unknown [id number] 2.16.840.1.524476.3.579 .2.1258 1955 Unknown [id number] 2.16840.1.574532.3.579 .2.1258 1955 Unknown [id number] 2.16.840.1.405059.3.579 .2.1258 1955 Unknown [id number] 2.16.840.1.797359.3.579 .2.1258 1955 Unknown [id number] 2.16.840.1.458560.3.579 .2.1258 1955 Unknown [id number] 2.16840.1.482150.3.579 .2.1258 1955 Unknown [id number] 2.16.840.1.172440.3.579 .2.1258 1955 Unknown [id number] 2.16.840.1.536990.3.579 .2.1258 1955 Unknown [id number] 2.16.840.1.633767.3.579 .2.1258 1955 Unknown [id number] 2.16.840.1.908439.3.579 .2.1258 1955 Unknown [id number] 2.16.840.1.758365.3.579 .2.1258 1955 Unknown [id number] 2.16.840.1.925860.3.579 .2.1258 1955 Unknown [id number] 2.16.840.1.150720.3.579 .2.1258 1955 Unknown [id number] 2.16.840.1.743130.3.579 .2.1258 1955 Unknown [id number] 2.16.840.1.381438.3.579 .2.1258 1955 Unknown [id number] 2.16.840.1.200788.3.579 .2.1258 1955 Unknown [id number] 2.16.840.1.952889.3.579 .2.1258 1955 Unknown [id number] 2.16.840.1.398780.3.579 .2.1258 1955 Unknown [id number] 2.16.840.1.241543.3.579 .2.1258 1955 Unknown [id number] 2.16.840.1.276368.3.579 .2.1258 1955 Unknown [id number] 2.16.840.1.881051.3.579 .2.1258 1955 Unknown [id number] 2.16.840.1.705155.3.579 .2.1258 1955 Unknown [id number] 2.16.840.1.897302.3.579 .2.1258 1955 Unknown [id number] 2.16.840.1.056408.3.579 .2.1258 1955 Unknown [id number] 2.16.840.1.376544.3.579 .2.1258 1955 Unknown [id number] 2.16.840.1.986048.3.579 .2.9 1955 Unknown [id number] 2.16.840.1.271869.3.579 .2.1258 1955 Unknown [id number] 2.16.840.1.644999.3.579 .2.1258 1955 Unknown [id number] 2.16.840.1.112653.3.579 .2.1258 1955 Unknown [id number] 2.16.840.1.880534.3.579 .2.1258 1955 Unknown [id number] 2.16.840.1.008770.3.579 .2.1258 1955 Unknown [id number] 2.16.840.1.056501.3.579 .2.1258 1955 Unknown [id number] 2.16.840.1.021331.3.579 .2.1258 1955 Unknown [id number] 2.16.840.1.956792.3.579 .2.1258 1955 Unknown [id number] 2.16.840.1.328508.3.579 .2.1258 1955 Unknown [id number] 2.16.840.1.653890.3.579 .2.1258 1955 Unknown [id number] 2.16.840.1.685954.3.579 .2.1258 1955 Unknown [id number] 2.16.840.1.453592.3.579 .2.1258 1955 Unknown [id number] 2.16.840.1.505241.3.579 .2.1258 1955 Unknown [id number] 2.16.840.1.705707.3.579 .2.1258 1955 Unknown [id number] 2.16.840.1.462969.3.579 .2.1259 Social History Date Type Detail Facility Tobacco smoking status [facility] Start: 04-29-2023 End: 05-11-2024 Sex Assigned At Female [facility] Start: 10-08-2022 End: 10-27-2023 Tobacco smoking status NHIS Never smoked tobacco [facility] Start: 10-08-2022 End: 10-27-2023 Tobacco use and exposure Smokeless tobacco non-user [facility] Start: 06-22-2023 End: 05-11-2024 Alcohol intake Lifetime non-drinker (finding) [facility] Start: 04-29-2023 End: 05-11-2024 History of Social function [facility] Start: 09-17-2022 Alcohol Comment Caffeine: Angela olate, Soda [facility] Start: 1955 Sex Assigned At Not on file [facility] Start: 10-17-2023 End: 10-27-2023 Exposure to SARS-CoV-2 (event) Not sure [facility] Clinical Notes 05-29-2022 to 05-11-2024 Nash Castaneda DPM - 05/11/2024 8:40 AM Laura Rodriguez MD - 04/25/2024 1:40 PM Laura Rodriguez MD - 04/25/2024 1:30 PM Richard Castaneda DPM - 04/20/2024 11:30 AM ESTPatient Instructions Note Date & Type Note Facility 05-11-2024 Note Imaging Result: Pre pin fixation to hallux with De Dios arthroplasty procedure with notable right 2nd and 3rd digit K-wires intact with screw fixation intact [facility] 05-11-2024 History of Present illness Narrative Patient: Marcela Santiago : 1955 PCP: Feliberto Rodriguez MD SUBJECTIVE This is a 69 y.o. female that presents today 8 days s/p right De Dios bunionectomy with kwire and right 2nd and 3rd metatarsal leanne osteotomies and plantar plate repairs with right 2nd and 3rd digit PIPJ arthrodesis with kwires Pt denies n/f/v/c and has minimal pain to post op site. Pt states that they have been keeping dressing dry and intact and have been nonweightbearing to post op foot Pt presents today for follow up. Patient seen in ER on [facility] at [facility] with diagnosis of possible infection but most likely DVT with high D-dimer according to patient placed on Xarelto and doxycycline states she had pain and swelling to the high-thigh area on the right leg Denies shortness of breath Patient states pain has diminished to her right thigh but has history of back issues and has some numbness she states to the outer aspect of her thigh as well Allergies: No Known Allergies Past Medical History: Past Medical History: Diagnosis Date Allergies Anterolisthesis of lumbar spine 04/04/2021 Moderate to diffuse degenerative changes, 3 mm anterolisthesis of L4 with no dynamic instability Anxiety Back pain COVID 03/15/2022 Moderna Vaccinated; No boosters Gallbladder disease Hypertension (CMS/HCC) Kidney stones Knee pain Lt Osteopenia Pain management Ureteric stone Right Medications: Current Outpatient Medications: Acetaminophen 500 MG capsule, Take by mouth every 6 (six) hours if needed., Disp: , Rfl: alendronate (Fosamax) 70 MG tablet, TAKE 1 TABLET(70 MG) BY MOUTH EVERY 7 DAYS, Disp: 12 tablet, Rfl: 3 benzonatate (Tessalon Perles) 100 MG capsule, Take 1 capsule (100 mg) by mouth 3 (three) times a day as needed for cough Do not crush or chew., Disp: 21 capsule, Rfl: 0 busPIRone (Buspar) 5 MG tablet, Take 1 tablet (5 mg) by mouth in the morning and 1 tablet (5 mg) in the evening and 1 tablet (5 mg) before bedtime., Disp: 300 tablet, Rfl: 3 cholecalciferol (Vitamin D-3) 125 MCG (5000 UT) capsule, Take 1 capsule (125 mcg) by mouth Daily, Disp: 100 capsule, Rfl: 3 diclofenac sodium (Voltaren) 1 % gel, Apply topically 3 (three) times a day., Disp: , Rfl: ferrous sulfate (Fe Tabs) 325 (65 Fe) MG EC tablet, Take 1 tablet (325 mg) by mouth Daily Do not crush, chew, or split., Disp: 100 tablet, Rfl: 3 lisinopril 20 MG tablet, Take 1 tablet (20 mg) by mouth Daily, Disp: 100 tablet, Rfl: 3 lisinopril-hydroCHLOROthiazide 20-12.5 MG tablet, Take 1 tablet by mouth Daily, Disp: 100 tablet, Rfl: 3 metoprolol tartrate (Lopressor) 50 MG tablet, Take 1 tablet (50 mg) by mouth in the morning and 1 tablet (50 mg) before bedtime., Disp: 200 tablet, Rfl: 3 ROS: General: denies fever, chills, fatigue, malaise OBJECTIVE LE EXAM: Derm: Sutures intact to right foot with negative erythema, negative drainage, minimal edema with negative clinical signs of infection. Kwires intact right hallux,2nd and 3rd digits. Bullous lesion noted to the medial aspect of right 2nd toe at PIPJ region Vascular: Palpable pedal pulses to right foot Neuro: Gross sensation intact to right foot. Musculoskeletal: Negative pain on palpation to right calf. Ortho: Ankle range of motion less than 10 degrees of dorsiflexion at right ankle joint. Rectus right hallux and right 2nd and 3rd digits. Negative pain on palpation to right anterior medial thigh and area saphenous pain XRAY: XR foot 3+ views right Imaging Result: Pre pin fixation to hallux with De Dios arthroplasty procedure with notable right 2nd and 3rd digit K-wires intact with screw fixation intact ASSESSMENT 8 days s/p right De Dios bunionectomy with kwire and right 2nd and 3rd metatarsal leanne osteotomies and plantar plate repairs with right 2nd and 3rd digit PIPJ arthrodesis with kwires 1. Hallux rigidus of right foot 2. Metatarsal deformity, right 3. Acquired deformity of right toe 4. Plantar plate injury, right, initial encounter PLAN Patient to keep dry sterile dressing intact and keep dressing dry with non weightbearing. Patient may take anti-inflammatories as needed for pain. May continue with ice to foot as needed p.r.n. Will order venous duplex patient continue with Xarelto and antibiotics Performed I&D of small seroma to right 2nd toe with Betadine applied Nash Castaneda DPM documented in this encounter [facility] 04-25-2024 History of Present illness Narrative Associated Problem(s): Preoperative clearance No current Chest Pain This is a low risk cardiac procedure Patient is cleared for surgery She had a previous surgery back in November and was cleared by cardiology Avoid NSaIDs or aspirin 7 days before surgery She is having Surgery on right foot Images from the original note were not included. HPI surgical clearance Additional comments: Surgery with dr castaneda Last edited by Carolina Motley MA on 04/25/2024 7:50 AM. Subjective Patient ID: Marcela Santiago is a 69 y.o. female who presents for surgical clearance (Surgery with dr castaneda ). Pt is here for surgical clearance for foot surgery with dr castaneda on 05/03 pt did have lab work and was previously cleared by cardio back in november for another surgery. Since last office visit pt was concerned for her BP so she kept a log since then , no meds were changed then Current Outpatient Medications on File Prior to Visit Medication Sig Dispense Refill Acetaminophen 500 MG capsule Take by mouth every 6 (six) hours if needed. alendronate (Fosamax) 70 MG tablet TAKE 1 TABLET(70 MG) BY MOUTH EVERY 7 DAYS 12 tablet 3 benzonatate (Tessalon Perles) 100 MG capsule Take 1 capsule (100 mg) by mouth 3 (three) times a day as needed for cough Do not crush or chew. 21 capsule 0 busPIRone (Buspar) 5 MG tablet Take 1 tablet (5 mg) by mouth in the morning and 1 tablet (5 mg) in the evening and 1 tablet (5 mg) before bedtime. 300 tablet 3 diclofenac sodium (Voltaren) 1 % gel Apply topically 3 (three) times a day. ferrous sulfate (Fe Tabs) 325 (65 Fe) MG EC tablet Take 1 tablet (325 mg) by mouth Daily Do not crush, chew, or split. 100 tablet 3 HYDROcodone-acetaminophen (Poyen) 5-325 MG tablet Take 1 tablet by mouth every 8 (eight) hours if needed for moderate pain (PRN pain) for up to 5 days 15 tablet 0 lisinopril 20 MG tablet Take 1 tablet (20 mg) by mouth Daily 100 tablet 3 lisinopril-hydroCHLOROthiazide 20-12.5 MG tablet Take 1 tablet by mouth Daily 100 tablet 3 metoprolol tartrate (Lopressor) 50 MG tablet Take 1 tablet (50 mg) by mouth in the morning and 1 tablet (50 mg) before bedtime. 200 tablet 3 [DISCONTINUED] cholecalciferol (Vitamin D-3) 125 MCG (5000 UT) capsule Take 1 capsule (125 mcg) by mouth in the morning. 100 capsule 3 [DISCONTINUED] cholecalciferol (Vitamin D-3) 125 MCG (5000 UT) capsule Take 1 capsule (125 mcg) by mouth Daily 100 capsule 3 No current facility-administered medications on file prior to visit. I have reviewed and reconciled the history and medication list with the patient today. No Known Allergies Social History Tobacco Use Smoking status: Never Smokeless tobacco: Never Substance Use Topics Alcohol use: Never Comment: Caffeine: Chocolate, Soda Drug use: Never Family History Problem Relation Name Age of Onset COPD Mother Alcohol abuse Father Cancer Father Past Medical History: Diagnosis Date Allergies Anterolisthesis of lumbar spine 04/04/2021 Moderate to diffuse degenerative changes, 3 mm anterolisthesis of L4 with no dynamic instability Anxiety Back pain COVID 03/15/2022 Moderna Vaccinated; No boosters Gallbladder disease Hypertension (CMS/HCC) Kidney stones Knee pain Lt Osteopenia Pain management Ureteric stone Right Past Surgical History: Procedure Laterality Date ANGIOPLASTY 1989 APPENDECTOMY CHOLECYSTECTOMY DILATION AND CURETTAGE 1976 OTHER SURGICAL HISTORY 4,5 hammer toes PAP SMEAR 2012 PAP SMEAR 2013 TOTAL KNEE ARTHROPLASTY Right 2012 Dr Abreu TOTAL KNEE ARTHROPLASTY Left 12/15/2023 Dr Abreu TRIGGER FINGER RELEASE Right 05/05/2023 Thumb, Mass excision. Dr Abreu Visit Vitals BP 104/68 Pulse 75 Ht 5' 4 Wt 226 lb SpO2 97% BMI 38.79 kg/m Smoking Status Never BSA 2.16 m Review of Systems Constitutional: Negative for fever. Respiratory: Negative for shortness of breath. Cardiovascular: Negative for chest pain. Objective Physical Exam Constitutional: General: She is not in acute distress. Appearance: Normal appearance. She is obese. HENT: Head: Normocephalic. Neck: Vascular: No carotid bruit. Cardiovascular: Rate and Rhythm: Normal rate and regular rhythm. Pulmonary: Effort: Pulmonary effort is normal. No respiratory distress. Breath sounds: Normal breath sounds. Neurological: General: No focal deficit present. Mental Status: She is alert and oriented to person, place, and time. Psychiatric: Mood and Affect: Mood normal. Assessment/Plan Problem List Items Addressed This Visit Vitamin D deficiency Relevant Medications cholecalciferol (Vitamin D-3) 125 MCG (5000 UT) capsule Preoperative clearance - Primary No current Chest Pain This is a low risk cardiac procedure Patient is cleared for surgery She had a previous surgery back in November and was cleared by cardiology Avoid NSaIDs or aspirin 7 days before surgery She is having Surgery on right foot No follow-ups on file. documented in this encounter [facility] 04-20-2024 History of Present illness Narrative Patient: Marcela Santiago : 1955 PCP: Feliberto Rodriguez MD SUBJECTIVE This is a 69 y.o. female that presents today for follow up of complaints of right 2nd and 3rd digits that are problematic and rubbing against each other and been present for the past few years and would like discussed possible treatment options including surgical intervention in the future . She states painful ambulation in shoegear with hx of hallux rigidus to the right first MPJ. She presents today for follow up and preoperative evaluation examination for a right De Dios bunionectomy with right 2nd and 3rd metatarsal Leanne osteotomies with plantar plate repairs and possible K-wires as well as right 2nd and 3rd digit PIPJ arthroplasty arthrodesis procedures with possible K-wires Patient presents today with a CC of elongated, thick nails. Pt states nails have been elongated and thick for many years and cause pain with ambulation in shoegear. Pt has tried previous treatment with minimal relief. Pt presents today for nail care and treatment. Allergies: No Known Allergies Past Medical History: Past Medical History: Diagnosis Date Allergies Anterolisthesis of lumbar spine 04/04/2021 Moderate to diffuse degenerative changes, 3 mm anterolisthesis of L4 with no dynamic instability Anxiety Back pain COVID 03/15/2022 Moderna Vaccinated; No boosters Gallbladder disease Hypertension (CMS/HCC) Kidney stones Knee pain Lt Osteopenia Pain management Ureteric stone Right Medications: Current Outpatient Medications: Acetaminophen 500 MG capsule, Take by mouth every 6 (six) hours if needed., Disp: , Rfl: alendronate (Fosamax) 70 MG tablet, TAKE 1 TABLET(70 MG) BY MOUTH EVERY 7 DAYS, Disp: 12 tablet, Rfl: 3 benzonatate (Tessalon Perles) 100 MG capsule, Take 1 capsule (100 mg) by mouth 3 (three) times a day as needed for cough Do not crush or chew., Disp: 21 capsule, Rfl: 0 busPIRone (Buspar) 5 MG tablet, Take 1 tablet (5 mg) by mouth in the morning and 1 tablet (5 mg) in the evening and 1 tablet (5 mg) before bedtime., Disp: 300 tablet, Rfl: 3 cholecalciferol (Vitamin D-3) 125 MCG (5000 UT) capsule, Take 1 capsule (125 mcg) by mouth in the morning., Disp: 100 capsule, Rfl: 3 diclofenac sodium (Voltaren) 1 % gel, Apply topically 3 (three) times a day., Disp: , Rfl: ferrous sulfate (Fe Tabs) 325 (65 Fe) MG EC tablet, Take 1 tablet (325 mg) by mouth Daily Do not crush, chew, or split., Disp: 100 tablet, Rfl: 3 lisinopril 20 MG tablet, Take 1 tablet (20 mg) by mouth Daily, Disp: 100 tablet, Rfl: 3 lisinopril-hydroCHLOROthiazide 20-12.5 MG tablet, Take 1 tablet by mouth Daily, Disp: 100 tablet, Rfl: 3 metoprolol tartrate (Lopressor) 50 MG tablet, Take 1 tablet (50 mg) by mouth in the morning and 1 tablet (50 mg) before bedtime., Disp: 200 tablet, Rfl: 3 Social History: Social History Socioeconomic History Marital status: Spouse name: Not on file Number of children: Not on file Years of education: Not on file Highest education level: Not on file Occupational History Not on file Tobacco Use Smoking status: Never Smokeless tobacco: Never Substance and Sexual Activity Alcohol use: Never Comment: Caffeine: Chocolate, Soda Drug use: Never Sexual activity: Defer Partners: Decline to Answer Other Topics Concern Not on file Social History Narrative Not on file Social Drivers of Health Financial Resource Strain: Not on file Food Insecurity: No Food Insecurity (12/15/2023) Received from [facility] Hunger Screening Within the past 12 months we worried whether our food would run out before we got money to buy more.: Never True Within the past 12 months the food we bought just didn't last and we didn't have money to get more.: Never True Transportation Needs: No Transportation Needs (12/15/2023) Received from [facility] - Transportation Lack of Transportation (Medical): No Lack of Transportation (Non-Medical): No Physical Activity: Not on file Stress: Not on file Social Connections: Not on file Intimate Partner Violence: Not on file Housing Stability: Low Risk (12/15/2023) Received from [facility] Housing Instability Are you worried or concerned that in the next two months you may not have stable housing that you own, rent or stay in as a part of a household?: No ROS: General: denies fever, chills, fatigue, malaise GI: denies abdominal pain or ulcerations with anti-inflammatory medication GI: denies abdominal pain or ulcerations with anti-inflammatory medication Musculoskeletal positive history of [id number] right total knee replacement OBJECTIVE LE EXAM: DERM: Elongated thick yellow crumbly nails digits 1 through 10. Positive hair growth b/l feet. Rubor digits 2 and 3 right toes VASC: Positive palpable pedal pulses bilaterally NEURO: Gross sensation intact to bilateral feet ORTHO: Positive pain on palpation to nails 1 through 10 Range of motion 1st MPJ less than 15 degrees dorsiflexion right with crepitus Flexion deformity right 2 and 3 toes with notable metatarsal deformities and adduction of digits XRAY: Verbal order today for x-rays be taken by staff. AP/Oblique/Lateral 3 view radiographs today of the right foot demonstrated the following: Notable severe DJD [id number] MPJ of the right foot with joint mice noted with notable digital deformities and metatarsal deformities of 2nd and 3rd digits ASSESSMENT 1. Hallux rigidus of right foot 2. Metatarsal deformity, right 3. Acquired deformity of right toe 4. Plantar plate injury, right, initial encounter 5. Onychomycosis 6. Toe pain, left 7. Toe pain, right PLAN Discussed proper foot care with patient today. Debride nails in length and thickness digits 1 through 10 Patient given prescription for pain medication to be taken postoperatively. Decision for surgery today and patient medically cleared from a podiatric standpoint for surgery and to proceed with surgery. Pt to have pre op H/P per PCP for medical clearance for surgery and will be reviewed along with labs prior to surgery. Pt scheduled for right D Edios bunionectomy with K-wire as well as right 2nd and 3rd metatarsal Leanne osteotomies as well as right 2nd and 3rd plantar plate repair and right 2nd and 3rd digit PIPJ arthroplasty arthrodesis procedure with possible K-wires. Discussed with the patient the nature of condition and operative vs nonoperative care. The surgical plans, risks, alternatives, benefits, post op complications and extermination inspector expectations were discussed including but not limited to: infection,bone infection,wound dehiscence hardware failure and irritation,wound dehiscence,delay union/mal union/non union of bone. RSDS,neuroma,duty limitations,DVT/PE, RI,nerve damage, scar, loss of sensation, swelling. Pt understands the proposed sx in detail and has agreed with proposed surgery. No guarantees were given or implied. Pt willingly consents to procedure and to have surgical procedure. Patient understands postoperative course and did discuss possible crowding of toes however patient is willing to forego any issues with toes as she understands this may be an issue in the future but can not guarantee her a non event post surgical to the crowding of toes. Pt also understands risks including COVID-19 current risk in a surgical setting. Pt is a low acceptable risk for outpatient surgery from a podiatric standpoint with an ASA of a 2. Nash Castaneda DPM, FACFAS H&P up to date and current (date) April 20, 2024 Nash Castaneda DPM documented in this encounter [facility] 04-10-2024 History of Present illness Narrative Associated Problem(s): Primary hypertension ([facility]) Our specific goals, for your hypertension, is to keep your blood pressure less than 140/90, and the importance of weight control. We made recommendations on how to control your blood pressure, and minimize your risk of these copmplications. We also discussed your current barriers to a healthy living and importance of healthy diet and exercise. Prior to your visit today we have reviewed your chart and formed a plan to assist with providing you the best possible care. We reviewed the possible complications of hypertension including, stroke, heart failure and kidney impairment. In addition, we discussed your medications, the importance of taking them as prescribed. DASH diet handouts Images from the original note were not included. Subjective Patient ID: Marcela Santiago is a 69 y.o. female who presents for Hypertension. Been good at home 120/60 Swelling in her feet since surgery for her knee top of her feet Hammertoe in toe toes and big toe Cardiology cleared back in November. No atrial fibrillation Hypertension This is a chronic problem. The current episode started more than 1 year ago. The problem is unchanged. The problem is controlled. Associated symptoms include malaise/fatigue. Pertinent negatives include no chest pain, headaches, palpitations or shortness of breath. 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 Past treatments include STEWART inhibitors and diuretics. The current treatment provides significant improvement. There are no compliance problems. Current Outpatient Medications on File Prior to Visit Medication Sig Dispense Refill Acetaminophen 500 MG capsule Take by mouth every 6 (six) hours if needed. alendronate (Fosamax) 70 MG tablet TAKE 1 TABLET(70 MG) BY MOUTH EVERY 7 DAYS 12 tablet 3 benzonatate (Tessalon Perles) 100 MG capsule Take 1 capsule (100 mg) by mouth 3 (three) times a day as needed for cough Do not crush or chew. 21 capsule 0 busPIRone (Buspar) 5 MG tablet Take 1 [...] Apply topically 3 (three) times a day. HYDROcodone-acetaminophen (Poyen) 5-325 MG tablet metoprolol tartrate (Lopressor) 50 MG tablet Take 1 tablet (50 mg) by mouth in the morning and 1 tablet (50 mg) before bedtime. 200 tablet 3 [DISCONTINUED] ferrous sulfate (Fe Tabs) 325 (65 Fe) MG EC tablet Take 1 tablet (325 mg) by mouth Daily Do not crush, chew, or split. 30 tablet 1 [DISCONTINUED] lisinopril 20 MG tablet Take 1 tablet (20 mg) by mouth in the morning. 100 tablet 3 [DISCONTINUED] lisinopril-hydroCHLOROthiazide 20-12.5 MG tablet Take 1 tablet by mouth in the morning. 100 tablet 3 No current facility-administered medications on file prior to visit. I have reviewed and reconciled the history and medication list with the patient today. No Known Allergies Social History Tobacco Use Smoking status: Never Smokeless tobacco: Never Substance Use Topics Alcohol use: Never Comment: Caffeine: Chocolate, Soda Drug use: Never Family History Problem Relation Name Age of Onset COPD Mother Alcohol abuse Father Cancer Father Past Medical History: Diagnosis Date Allergies Anterolisthesis of lumbar spine 04/04/2021 Moderate to diffuse degenerative changes, 3 mm anterolisthesis of L4 with no dynamic instability Anxiety Back pain COVID 03/15/2022 Moderna Vaccinated; No boosters Gallbladder disease Hypertension (CMS/HCC) Kidney stones Knee pain Lt Osteopenia Pain management Ureteric stone Right Past Surgical History: Procedure Laterality Date ANGIOPLASTY 1989 APPENDECTOMY CHOLECYSTECTOMY DILATION AND CURETTAGE 1976 OTHER SURGICAL HISTORY 4,5 hammer toes PAP SMEAR 2012 PAP SMEAR 2013 TOTAL KNEE ARTHROPLASTY Right 2012 Dr Abreu TOTAL KNEE ARTHROPLASTY Left 12/15/2023 Dr Abreu TRIGGER FINGER RELEASE Right 05/05/2023 Thumb, Mass excision. Dr Abreu Visit Vitals BP 134/82 Pulse 78 Ht 5' 4 Wt 226 lb SpO2 95% BMI 38.79 kg/m Smoking Status Never BSA 2.16 m Review of Systems Constitutional: Positive for malaise/fatigue. Respiratory: Negative for chest tightness and shortness of breath. Cardiovascular: Negative for chest pain and palpitations. Gastrointestinal: Negative for anal bleeding, blood in stool, constipation and diarrhea. Genitourinary: Negative for dysuria, frequency and hematuria. Neurological: Negative for dizziness, facial asymmetry, light-headedness and headaches. Objective Physical Exam Constitutional: General: She is not in acute distress. Appearance: Normal appearance. HENT: Head: Normocephalic. Neck: Vascular: No carotid bruit. Cardiovascular: Rate and Rhythm: Normal rate and regular rhythm. Pulmonary: Effort: Pulmonary effort is normal. No respiratory distress. Breath sounds: Normal breath sounds. Musculoskeletal: Legs: Comments: Foot swollen no redness +2 Pulses Neurological: General: No focal deficit present. Mental Status: She is alert and oriented to person, place, and time. Psychiatric: Mood and Affect: Mood normal. Assessment/Plan Problem List Items Addressed This Visit Arthritis of left knee Relevant Medications ferrous sulfate (Fe Tabs) 325 (65 Fe) MG EC tablet Primary hypertension (CMS/HCC) Our specific goals, for your hypertension, is to keep your blood pressure less than 140/90, and the importance of weight control. We made recommendations on how to control your blood pressure, and minimize your risk of these copmplications. We also discussed your current barriers to a healthy living and importance of healthy diet and exercise. Prior to your visit today we have reviewed your chart and formed a plan to assist with providing you the best possible care. We reviewed the possible complications of hypertension including, stroke, heart failure and kidney impairment. In addition, we discussed your medications, the importance of taking them as prescribed. DASH diet handouts Relevant Medications lisinopril 20 MG tablet lisinopril-hydroCHLOROthiazide 20-12.5 MG tablet Localized swelling of left lower leg - Primary Relevant Orders Vascular US lower extremity venous duplex left Follow up in about 6 months (around 10/08/2024). documented in this encounter [facility] 03-22-2024 History of Present illness Narrative Patient: Marcela Santiago : 1955 PCP: Feliberto Rodriguez MD SUBJECTIVE This is a 69 y.o. female that presents today for follow up of complaints of right 2nd and 3rd digits that are problematic and rubbing against each other and been present for the past few years and would like discussed possible treatment options including surgical intervention in the future . She states painful ambulation in shoegear with hx of hallux rigidus to the right first MPJ. She presents today for follow up and discussion of possible surgical intervention. Allergies: No Known Allergies Past Medical History: Past Medical History: Diagnosis Date Allergies Anterolisthesis of lumbar spine 04/04/2021 Moderate to diffuse degenerative changes, 3 mm anterolisthesis of L4 with no dynamic instability Anxiety Back pain COVID 03/15/2022 Moderna Vaccinated; No boosters Gallbladder disease Hypertension (CMS/HCC) Kidney stones Knee pain Lt Osteopenia Pain management Ureteric stone Right Medications: Current Outpatient Medications: Acetaminophen 500 MG capsule, Take by mouth every 6 (six) hours if needed., Disp: , Rfl: alendronate (Fosamax) 70 MG tablet, Take 1 tablet (70 mg) by mouth every 7 (seven) days., Disp: 12 tablet, Rfl: 3 benzonatate (Tessalon Perles) 100 MG capsule, Take 1 capsule (100 mg) by mouth 3 (three) times a day as needed for cough Do not crush or chew., Disp: 21 capsule, Rfl: 0 busPIRone (Buspar) 5 MG tablet, Take 1 tablet (5 mg) by mouth in the morning and 1 tablet (5 mg) in the evening and 1 tablet (5 mg) before bedtime., Disp: 300 tablet, Rfl: 3 cholecalciferol (Vitamin D-3) 125 MCG (5000 UT) capsule, Take 1 capsule (125 mcg) by mouth in the morning., Disp: 100 capsule, Rfl: 3 diclofenac sodium (Voltaren) 1 % gel, Apply topically 3 (three) times a day., Disp: , Rfl: ferrous sulfate (Fe Tabs) 325 (65 Fe) MG EC tablet, Take 1 tablet (325 mg) by mouth Daily Do not crush, chew, or split., Disp: 30 tablet, Rfl: 1 HYDROcodone-acetaminophen (Poyen) 5-325 MG tablet, , Disp: , Rfl: lisinopril 20 MG tablet, Take 1 tablet (20 mg) by mouth in the morning., Disp: 100 tablet, Rfl: 3 lisinopril-hydroCHLOROthiazide 20-12.5 MG tablet, Take 1 tablet by mouth in the morning., Disp: 100 tablet, Rfl: 3 metoprolol tartrate (Lopressor) 50 MG tablet, Take 1 tablet (50 mg) by mouth in the morning and 1 tablet (50 mg) before bedtime., Disp: 200 tablet, Rfl: 3 Social History: Social History Socioeconomic History Marital status: Spouse name: Not on file Number of children: Not on file Years of education: Not on file Highest education level: Not on file Occupational History Not on file Tobacco Use Smoking status: Never Smokeless tobacco: Never Substance and Sexual Activity Alcohol use: Never Comment: Caffeine: Chocolate, Soda Drug use: Never Sexual activity: Defer Partners: Decline to Answer Other Topics Concern Not on file Social History Narrative Not on file Social Drivers of Health Financial Resource Strain: Not on file Food Insecurity: No Food Insecurity (12/15/2023) Received from [facility] Hunger Screening Within the past 12 months we worried whether our food would run out before we got money to buy more.: Never True Within the past 12 months the food we bought just didn't last and we didn't have money to get more.: Never True Transportation Needs: No Transportation Needs (12/15/2023) Received from [facility] PRAPARE - Transportation Lack of Transportation (Medical): No Lack of Transportation (Non-Medical): No Physical Activity: Not on file Stress: Not on file Social Connections: Not on file Intimate Partner Violence: Not on file Housing Stability: Low Risk (12/15/2023) Received from [facility] Housing Instability Are you worried or concerned that in the next two months you may not have stable housing that you own, rent or stay in as a part of a household?: No ROS: General: denies fever, chills, fatigue, malaise GI: denies abdominal pain or ulcerations with anti-inflammatory medication GI: denies abdominal pain or ulcerations with anti-inflammatory medication Musculoskeletal positive history of [id number] right total knee replacement OBJECTIVE LE EXAM: DERM: Elongated thick yellow crumbly nails digits 1 through 10. Positive hair growth b/l feet. Rubor digits 2 and 3 right toes VASC: Positive palpable pedal pulses bilaterally NEURO: Gross sensation intact to bilateral feet ORTHO: Positive pain on palpation to nails 1 through 10 Range of motion 1st MPJ less than 15 degrees dorsiflexion right with crepitus Flexion deformity right 2 and 3 toes with notable metatarsal deformities and adduction of digits XRAY: Verbal order today for x-rays be taken by staff. AP/Oblique/Lateral 3 view radiographs today of the right foot demonstrated the following: Notable severe DJD [id number] MPJ of the right foot with joint mice noted with notable digital deformities and metatarsal deformities of 2nd and 3rd digits ASSESSMENT 1. Hallux rigidus of right foot 2. Metatarsal deformity, right 3. Acquired deformity of right toe 4. Plantar plate injury, right, initial encounter PLAN Reviewed x-rays today with patient Discussed conservative and surgical treatment options for patient today including postoperative time frame and surgical procedure in detail. Patient may continue with conservative treatments including [id number] anti-inflammatories and other treatments suggested today. Patient may want to be scheduled for surgical intervention in the near future. Discussed a right De Dios bunionectomy today with right 2nd and 3rd metatarsal Leanne osteotomies as well as right 2nd and 3rd PIPJ arthrodesis procedures with K-wires and plantar plate repairs to right 2nd and 3rd MPJ regions. Patient understands postoperative course and did discuss possible crowding of toes however patient is willing to forego any issues with toes as she understands this may be an issue in the future but can not guarantee her a non event post surgical to the crowding of toes. Did discuss possible surgeries to the other toes however she does not want at this time would like to go forth with surgery Nash Castaneda DPM documented in this encounter [facility] 03-06-2024 History of Present illness Narrative Patient: Marcela Santiago : 1955 PCP: Feliberto Rodriguez MD SUBJECTIVE This is a 69 y.o. female that presents today for follow up of complaints of right 2nd and 3rd digits that are problematic and rubbing against each other and been present for the past few years and would like discussed possible treatment options including surgical intervention in the future . She states painful ambulation in shoegear with hx of hallux rigidus to the right first MPJ. She presents today for follow up and discussion of possible surgical intervention Allergies: No Known Allergies Past Medical History: Past Medical History: Diagnosis Date Allergies Anterolisthesis of lumbar spine 04/04/2021 Moderate to diffuse degenerative changes, 3 mm anterolisthesis of L4 with no dynamic instability Anxiety Back pain COVID 03/15/2022 Moderna Vaccinated; No boosters Gallbladder disease Hypertension (CMS/HCC) Kidney stones Knee pain Lt Osteopenia Pain management Ureteric stone Right Medications: Current Outpatient Medications: Acetaminophen 500 MG capsule, Take by mouth every 6 (six) hours if needed., Disp: , Rfl: alendronate (Fosamax) 70 MG tablet, Take 1 tablet (70 mg) by mouth every 7 (seven) days., Disp: 12 tablet, Rfl: 3 benzonatate (Tessalon Perles) 100 MG capsule, Take 1 capsule (100 mg) by mouth 3 (three) times a day as needed for cough Do not crush or chew., Disp: 21 capsule, Rfl: 0 busPIRone (Buspar) 5 MG tablet, Take 1 tablet (5 mg) by mouth in the morning and 1 tablet (5 mg) in the evening and 1 tablet (5 mg) before bedtime., Disp: 300 tablet, Rfl: 3 cholecalciferol (Vitamin D-3) 125 MCG (5000 UT) capsule, Take 1 capsule (125 mcg) by mouth in the morning., Disp: 100 capsule, Rfl: 3 diclofenac sodium (Voltaren) 1 % gel, Apply topically 3 (three) times a day., Disp: , Rfl: ferrous sulfate (Fe Tabs) 325 (65 Fe) MG EC tablet, Take 1 tablet (325 mg) by mouth Daily Do not crush, chew, or split., Disp: 30 tablet, Rfl: 1 HYDROcodone-acetaminophen (Poyen) 5-325 MG tablet, , Disp: , Rfl: lisinopril 20 MG tablet, Take 1 tablet (20 mg) by mouth in the morning., Disp: 100 tablet, Rfl: 3 lisinopril-hydroCHLOROthiazide 20-12.5 MG tablet, Take 1 tablet by mouth in the morning., Disp: 100 tablet, Rfl: 3 metoprolol tartrate (Lopressor) 50 MG tablet, Take 1 tablet (50 mg) by mouth in the morning and 1 tablet (50 mg) before bedtime., Disp: 200 tablet, Rfl: 3 Social History: Social History Socioeconomic History Marital status: Spouse name: Not on file Number of children: Not on file Years of education: Not on file Highest education level: Not on file Occupational History Not on file Tobacco Use Smoking status: Never Smokeless tobacco: Never Substance and Sexual Activity Alcohol use: Never Comment: Caffeine: Chocolate, Soda Drug use: Never Sexual activity: Defer Partners: Decline to Answer Other Topics Concern Not on file Social History Narrative Not on file Social Drivers of Health Financial Resource Strain: Not on file Food Insecurity: No Food Insecurity (12/15/2023) Received from [facility] Hunger Screening Within the past 12 months we worried whether our food would run out before we got money to buy more.: Never True Within the past 12 months the food we bought just didn't last and we didn't have money to get more.: Never True Transportation Needs: No Transportation Needs (12/15/2023) Received from [facility] PRAPARE - Transportation Lack of Transportation (Medical): No Lack of Transportation (Non-Medical): No Physical Activity: Not on file Stress: Not on file Social Connections: Not on file Intimate Partner Violence: Not on file Housing Stability: Low Risk (12/15/2023) Received from [facility] Housing Instability Are you worried or concerned that in the next two months you may not have stable housing that you own, rent or stay in as a part of a household?: No ROS: General: denies fever, chills, fatigue, malaise GI: denies abdominal pain or ulcerations with anti-inflammatory medication GI: denies abdominal pain or ulcerations with anti-inflammatory medication Musculoskeletal positive history of [id number] right total knee replacement OBJECTIVE LE EXAM: DERM: Elongated thick yellow crumbly nails digits 1 through 10. Positive hair growth b/l feet. Rubor digits 2 and 3 right toes VASC: Positive palpable pedal pulses bilaterally NEURO: Gross sensation intact to bilateral feet ORTHO: Positive pain on palpation to nails 1 through 10 Range of motion 1st MPJ less than 15 degrees dorsiflexion right with crepitus Flexion deformity right 2 and 3 toes with notable metatarsal deformities and adduction of digits XRAY: Verbal order today for x-rays be taken by staff. AP/Oblique/Lateral 3 view radiographs today of the right foot demonstrated the following: Notable severe DJD left 1st MPJ of the right foot with joint mice noted with notable digital deformities and metatarsal deformities of 2nd and 3rd digits ASSESSMENT 1. Hallux rigidus of right foot 2. Metatarsal deformity, right 3. Acquired deformity of right toe 4. Plantar plate injury, right, initial encounter PLAN Reviewed x-rays today with patient Discussed possible surgical intervention including a right 1st MPJ arthrodesis and 2nd and 3rd toe PIPJ arthrodesis with plantar plate repair as well as Leanne osteotomies.. Did discuss possible complication including issue with 4th and 5th toes since in a abducted type orientation may push the 3rd toe and caused problems with the 3rd toe in the future.. Did also discuss possible surgical amputation of the 2nd toe as this would need to pick her recovery time with fusion of the 1st MPJ as well to reduce pain to the right great toe. Patient does not want amputation at this time but is interested in other procedure and may decide have done in the future and call if interested in treatment her primary care doctor is Dr. RODRIGUEZ and would have Percocet for postop pain would need physical therapy for walker training as well Nash Castaneda DPM documented in this encounter [facility] 03-02-2024 History of Present illness Narrative Images from the original note were not included. HISTORY OF PRESENT ILLNESS: Marcela Santiago is an 69 y.o. @ female. Follow up LT TKA LT knee: 11 weeks s/p LT TKA 12/14. Biggest complaint is stiffness. Walking without assisted devices. Incision well healed. Using ice. Continues with OP PT. Difficulty sleeping, knee stiffen up at HS. Not taking anything for pain. MEDICATION: Current Outpatient Medications on File Prior to Visit Medication Sig Dispense Refill Acetaminophen 500 MG capsule Take by mouth every 6 (six) hours if needed. alendronate (Fosamax) 70 MG tablet Take 1 tablet (70 mg) by mouth every 7 (seven) days. 12 tablet 3 benzonatate (Tessalon Perles) 100 MG capsule Take 1 capsule (100 mg) by mouth 3 (three) times a day as needed for cough Do not crush or chew. 21 capsule 0 busPIRone (Buspar) 5 MG tablet Take 1 [...] Apply topically 3 (three) times a day. ferrous sulfate (Fe Tabs) 325 (65 Fe) MG EC tablet Take 1 tablet (325 mg) by mouth Daily Do not crush, chew, or split. 30 tablet 1 HYDROcodone-acetaminophen (Poyen) 5-325 MG tablet lisinopril 20 MG tablet Take 1 tablet (20 mg) by mouth in the morning. 100 tablet 3 lisinopril-hydroCHLOROthiazide 20-12.5 MG tablet Take 1 tablet by mouth in the morning. 100 tablet 3 metoprolol tartrate (Lopressor) 50 MG tablet Take 1 tablet (50 mg) by mouth in the morning and 1 tablet (50 mg) before bedtime. 200 tablet 3 No current facility-administered medications on [...] Never PHYSICAL EXAM: Ortho Exam LEFT KNEE Incision healing nicely ROM 0-120 Gait, tends to walk stiff leg ASSESSMENT: ICD-10-CM 1. Status post left knee replacement Z96.652 PLAN: I discussed post op care and restrictions. I recommend NSAID at dinner time. I answered all of the patient's questions. I discussed with the patient the general recommendation for the use of prophylactic antibiotics prior to dental work after joint replacement. I advised the patient that the use of prophylactic antibiotics for dental work is a controversial topic. I currently have recommended that prophylactic antibiotics be used for 2 years postop and I did advise the patient that the guidelines and recommendations may change on this in the future. Follow up in 12 weeks with xrays, any issues/concerns follow up sooner. Dr. Abreu obtained history and examined the patient, I am acting as scribe for Dr. Abreu/trina I did advise the patient that I am leaving my current practice to practice [place] but my colleagues are willing to see her if she has any problems or concerns or if she desires a referral to another analytics specialist we would be happy to make referral, she states she would like to continue her care here. Maddie Abreu D.O. documented in this encounter [facility] 03-01-2024 History of Present illness Narrative Images from the original note were not included. Physical Therapy Physical Therapy Treatment Visit Patient Name: Marcela Santiago Today's Date: 03/01/2024 Encounter Diagnoses Name Primary? Acute postoperative pain of left knee Yes Arthritis of left knee Visit: 23 Time In: 10:25 am Time Out: 11:15 am Sup time: 40 min Total time: 50 min Subjective: Patient was seen today for follow up visit S/P Left TKA (DOS: 12/15/2023) Pain: mild pain entering on and off today Treatment: Therapeutic Activity: prn Therapeutic Exercise: x 45 min, 40 min supervised ROM, flexibility, strength per SHIRA grid, demo and verbal cues for correct technique Manual Therapy: PROM, stretching end range flexion x 5 min Modalities: Ice x deferred Assessment: AROM L knee flex today 116 degrees HL end of session. Pt demos good tolerance to session today. Advised to add some flexion stretching in chair at home to restore last ~5 degrees. Continue as able. Fci: (4-8 weeks) Patient will demonstrate 0-120 degrees of active left knee flexion. Patient will demonstrate 4/5 or better strength of left knee flexion and extension in order to participate in activities of interest without instability. Patient will safely ambulate for unlimited distances without increase in left knee discomfort. Patient will safely ambulate up and down flight of steps modified independently with reciprocal pattern. Plan: Continue POC documented in this encounter [facility] 02-23-2024 History of Present illness Narrative Images from the original note were not included. Physical Therapy Physical Therapy Treatment Visit Patient Name: Marcela Santiago Today's Date: 02/23/2024 Visit: 21 Time In:12:47 pm Time Out: 1:31pm Sup time: 39 min Total time: 44 min Subjective: Patient was seen today for follow up visit S/P Left TKA (DOS: 12/15/2023) Pain: up to 8/10 L knee pain at times today, denies upon arrival. Pt reports sleeping in recliner last night and woke up with sharp pain in L knee Treatment: Therapeutic Activity: prn Therapeutic Exercise: x 44 min, 39 min supervised ROM, flexibility, strength per SHIRA grid, demo and verbal cues for correct technique Manual Therapy: PROM, stretching end range, Modalities: Ice x deferred Assessment: Pt demos fair tolerance to session today due to increased pain with flex although pt was able to perform all SHIRA. Continued MT with increased end range pain in flex and decreased AROM noted post session. Advised to ice frequently at home. 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 Patient will demonstrate 4/5 or better strength of left knee flexion and extension in order to participate in activities of interest without instability. Patient will safely ambulate for unlimited distances without increase in left knee discomfort. Patient will safely ambulate up and down flight of steps modified independently with reciprocal pattern. Plan: Continue POC documented in this encounter [facility] 02-10-2024 History of Present illness Narrative Patient: Marcela Santiago : 1955 PCP: Feliberto Rodriguez MD SUBJECTIVE This is a 68 y.o. female that presents today with a CC of elongated, thick nails. Pt states nails have been elongated and thick for many years and cause pain with ambulation in shoegear. Pt has tried previous treatment with minimal relief. Pt presents today for nail care and treatment. Patient has history of right hallux rigidus Patient also has complaints of right 2nd and 3rd digits that are problematic and rubbing against each other and been present for the past few years and would like discussed possible treatment options including surgical intervention in the future Allergies: No Known Allergies Past Medical History: Past Medical History: Diagnosis Date Allergies Anterolisthesis of lumbar spine 04/04/2021 Moderate to diffuse degenerative changes, 3 mm anterolisthesis of L4 with no dynamic instability Anxiety Back pain COVID 03/15/2022 Moderna Vaccinated; No boosters Gallbladder disease Hypertension (CMS/HCC) Kidney stones Knee pain Lt Osteopenia Pain management Ureteric stone Right Medications: Current Outpatient Medications: Acetaminophen 500 MG capsule, Take by mouth every 6 (six) hours if needed., Disp: , Rfl: alendronate (Fosamax) 70 MG tablet, Take 1 tablet (70 mg) by mouth every 7 (seven) days., Disp: 12 tablet, Rfl: 3 benzonatate (Tessalon Perles) 100 MG capsule, Take 1 capsule (100 mg) by mouth 3 (three) times a day as needed for cough Do not crush or chew., Disp: 21 capsule, Rfl: 0 busPIRone (Buspar) 5 MG tablet, Take 1 tablet (5 mg) by mouth in the morning and 1 tablet (5 mg) in the evening and 1 tablet (5 mg) before bedtime., Disp: 300 tablet, Rfl: 3 cholecalciferol (Vitamin D-3) 125 MCG (5000 UT) capsule, Take 1 capsule (125 mcg) by mouth in the morning., Disp: 100 capsule, Rfl: 3 diclofenac sodium (Voltaren) 1 % gel, Apply topically 3 (three) times a day., Disp: , Rfl: ferrous sulfate (Fe Tabs) 325 (65 Fe) MG EC tablet, Take 1 tablet (325 mg) by mouth Daily Do not crush, chew, or split., Disp: 30 tablet, Rfl: 1 HYDROcodone-acetaminophen (Poyen) 5-325 MG tablet, , Disp: , Rfl: lisinopril 20 MG tablet, Take 1 tablet (20 mg) by mouth in the morning., Disp: 100 tablet, Rfl: 3 lisinopril-hydroCHLOROthiazide 20-12.5 MG tablet, Take 1 tablet by mouth in the morning., Disp: 100 tablet, Rfl: 3 metoprolol tartrate (Lopressor) 50 MG tablet, Take 1 tablet (50 mg) by mouth in the morning and 1 tablet (50 mg) before bedtime., Disp: 200 tablet, Rfl: 3 Social History: Social History Socioeconomic History Marital status: Spouse name: Not on file Number of children: Not on file Years of education: Not on file Highest education level: Not on file Occupational History Not on file Tobacco Use Smoking status: Never Smokeless tobacco: Never Substance and Sexual Activity Alcohol use: Never Comment: Caffeine: Chocolate, Soda Drug use: Never Sexual activity: Defer Partners: Decline to Answer Other Topics Concern Not on file Social History Narrative Not on file Social Determinants of Health Financial Resource Strain: Not on file Food Insecurity: No Food Insecurity (12/15/2023) Received from [facility] Hunger Screening Within the past 12 months we worried whether our food would run out before we got money to buy more.: Never True Within the past 12 months the food we bought just didn't last and we didn't have money to get more.: Never True Transportation Needs: No Transportation Needs (12/15/2023) Received from [facility] PRAPARE - Transportation Lack of Transportation (Medical): No Lack of Transportation (Non-Medical): No Physical Activity: Not on file Stress: Not on file Social Connections: Not on file Intimate Partner Violence: Not on file Housing Stability: Low Risk (12/15/2023) Received from [facility] Housing Instability Are you worried or concerned that in the next two months you may not have stable housing that you own, rent or stay in as a part of a household?: No ROS: General: denies fever, chills, fatigue, malaise GI: denies abdominal pain or ulcerations with anti-inflammatory medication GI: denies abdominal pain or ulcerations with anti-inflammatory medication Musculoskeletal positive history of 9-month-old right total knee replacement OBJECTIVE LE EXAM: DERM: Elongated thick yellow crumbly nails digits 1 through 10. Positive hair growth b/l feet. Rubor digits 2 and 3 right toes VASC: Positive palpable pedal pulses bilaterally NEURO: Gross sensation intact to bilateral feet ORTHO: Positive pain on palpation to nails 1 through 10 Range of motion 1st MPJ less than 15 degrees dorsiflexion right with crepitus Flexion deformity right 2 and 3 toes with notable metatarsal deformities and adduction of digits ASSESSMENT 1. Onychomycosis 2. Toe pain, left 3. Toe pain, right 4. Hallux rigidus of right foot 5. Metatarsal deformity, right 6. Acquired deformity of right toe PLAN Discussed proper foot care with patient today. Debride nails in length and thickness digits 1 through 10 Discussed conservative and surgical treatment options for patient today including postoperative time frame and surgical procedure in detail. Patient may continue with conservative treatments including [id number] anti-inflammatories and other treatments suggested today. Patient may want to be scheduled for surgical intervention in the near future. Brief discussion of possible surgical intervention including possible toe deformity repair and also plantar plate repair metatarsal deformity Leanne osteotomies in the future. Patient returned for radiographs and will discuss in further detail on and looking in the late March early April timeframe possible surgical intervention Nash Castaneda DPM documented in this encounter [facility] 02-07-2024 History of Present illness Narrative Images from the original note were not included. Physical Therapy Physical Therapy Daily Visit Patient Name: Marcela Santiago Today's Date: 02/02/2024 Visit: 17 Time In: 9:30 pm Time Out: 10:22 pm Sup time: 40 min Total time: 52 min Subjective: Patient was seen today for follow up visit S/P Left TKA (DOS: 12/15/2023) Pain: pt reports 2/10 pain entering, mostly stiff and tight Objective: Gait: enters without cane today, mod antalgic with compensated trendelenburg. Treatment: Therapeutic Activity: prn Therapeutic Exercise: ROM, flexibility, strength per SHIRA grid, 35 min, 30 min supervised demo and verbal cues for correct technique, re-added flexion stretch seated with strap under table. Manual Therapy: PROM, stretching end range, massage including scar and post knee/HS's with tightness noted x 10 min total Modalities: declined today will ice at home Assessment: Good tolerance today despite feeling a little more stiff and swollen on LE a lot over weekend with 5 yr old granddaughter didn't have as much time for exercises. AROM 2-114 degrees post session. Continue as tolerated Fci: (4-8 weeks) Patient will demonstrate 0-120 degrees of active left knee flexion. Patient will demonstrate 4/5 or better strength of left knee flexion and extension in order to participate in activities of interest without instability. Patient will safely ambulate for unlimited distances without increase in left knee discomfort. Patient will safely ambulate up and down flight of steps modified independently with reciprocal pattern. Plan: Continue POC in outpatient. Patient will be seen 2-3 times per week for 6-8 weeks for therapeutic exercise, gait training, therapeutic activity, manual therapy, patient education, and modalities as needed for pain control. documented in this encounter [facility] 02-04-2024 History of Present illness Narrative Images from the original note were not included. Physical Therapy Physical Therapy Daily Visit Patient Name: Marcela Santiago Today's Date: 02/02/2024 Visit: 16 Time In: 12:30 pm Time Out: 1:30 pm Sup time: 40 min Total time: 60 min Subjective: Patient was seen today for follow up visit S/P Left TKA (DOS: 12/15/2023) Pain: pt reports 2-3/10 pain entering, not as bad as earlier in the week. Objective: Gait: enters without cane today, mod antalgic with compensated trendelenburg. Treatment: Therapeutic Activity: prn Therapeutic Exercise: ROM, flexibility, strength per SHIRA grid, 35 min, 30 min supervised demo and verbal cues for correct technique, re-added flexion stretch seated with strap under table. Manual Therapy: PROM, stretching end range, massage including scar x 10 min total Modalities: ice x 10min Assessment: Good tolerance today due to increased pain upon arrival, difficulty with step downs. Pt was able to tolerated manual stretching although end range pain remains. AROM 3-112 degrees post session. 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 Patient will demonstrate 4/5 or better strength of left knee flexion and extension in order to participate in activities of interest without instability. Patient will safely ambulate for unlimited distances without increase in left knee discomfort. Patient will safely ambulate up and down flight of steps modified independently with reciprocal pattern. Plan: Continue POC in outpatient. Patient will be seen 2-3 times per week for 6-8 weeks for therapeutic exercise, gait training, therapeutic activity, manual therapy, patient education, and modalities as needed for pain control. documented in this encounter [facility] 01-20-2024 History of Present illness Narrative Images from the original note were not included. HISTORY OF PRESENT ILLNESS: Marcela Santiago is an 68 y.o. @ female. Follow up LT TKA LT knee: 5 weeks s/p LT TKA 12/14. Doing better, notes stiffness today feels from new exercises from PT. Biggest complaint is stiffeness causing it to ache. Walking without assisted devices. Taking TYL. Taking ASA 325. Going home PT. Incision healing well. She is icing often MEDICATION: Current Outpatient Medications on File Prior to Visit Medication Sig Dispense Refill Acetaminophen 500 MG capsule Take by mouth every 6 (six) hours if needed. alendronate (Fosamax) 70 MG tablet Take 1 tablet (70 mg) by mouth every 7 (seven) days. 12 tablet 3 benzonatate (Tessalon Perles) 100 MG capsule Take 1 capsule (100 mg) by mouth 3 (three) times a day as needed for cough Do not crush or chew. 21 capsule 0 busPIRone (Buspar) 5 MG tablet Take 1 [...] Apply topically 3 (three) times a day. ferrous sulfate (Fe Tabs) 325 (65 Fe) MG EC tablet Take 1 tablet (325 mg) by mouth Daily Do not crush, chew, or split. 30 tablet 1 HYDROcodone-acetaminophen (Poyen) 5-325 MG tablet lisinopril 20 MG tablet Take 1 tablet (20 mg) by mouth in the morning. 100 tablet 3 lisinopril-hydroCHLOROthiazide 20-12.5 MG tablet Take 1 tablet by mouth in the morning. 100 tablet 3 metoprolol tartrate (Lopressor) 50 MG tablet Take 1 tablet (50 mg) by mouth in the morning and 1 tablet (50 mg) before bedtime. 200 tablet 3 No current facility-administered medications on [...] Never PHYSICAL EXAM: Ortho Exam LEFT KNEE ROM 0-120 Normal temp/color Wound looks good IMAGING: XR knee 1 or 2 views left Imaging Result: January 20, 2024 x-rays AP weight-bearing bilateral knees and lateral of the left knee demonstrate a cemented knee replacement in good position alignment without signs of loosening fracture or failure. Impression: Stable appearance of left total knee replacement Yaniv Abreu D.O. ASSESSMENT: ICD-10-CM 1. Arthritis of left knee M17.12 XR knee 1 or 2 views left 2. Status post left knee replacement Z96.652 PLAN: I discussed with the patient the general recommendation for the use of prophylactic antibiotics prior to dental work after joint replacement. I advised the patient that the use of prophylactic antibiotics for dental work is a controversial topic. I currently have recommended that prophylactic antibiotics be used for 2 years postop and I did advise the patient that the guidelines and recommendations may change on this in the future. I recommend putting therapy on hold for a week. Follow up in 6 weeks, any issues/concerns follow up sooner. Dr. Abreu obtained history and examined the patient, I am acting as scribe for Dr. Abreu/trina Abreu D.O. documented in this encounter [facility] 01-19-2024 History of Present illness Narrative Physical Therapy Physical Therapy Daily Visit Patient Name: Marcela Santiago Today's Date: 01/14/2024 Visit: 13 Time In: 2:20 pm Time Out: 3:20 pm Sup time: 45 min Total time: 60 min Subjective: Patient was seen today for follow up visit S/P Left TKA (DOS: 12/15/2023) Pain: min pain entering, still having issues at night with sleep Objective: Gait: enters without cane today forgot it running late mod antalgic with compensated trendelenburg. Treatment: Therapeutic Activity: prn Therapeutic Exercise: ROM, flexibility, strength per SHIRA grid, 40 min, 35 min supervised demo and verbal cues for correct technique Manual Therapy: PROM, stretching end range, massage, patellar mobs x 10 min total Modalities: ice x 10min Assessment: Pt tolerated session well today. Min v/c required for technique. Little better tolerance to MT, less increased pain with flex stretching but remains. AROM 2-107 degrees post session. Continue as tolerated Fci: (4-8 weeks) Patient will demonstrate 0-120 degrees of active left knee flexion. Patient will demonstrate 4/5 or better strength of left knee flexion and extension in order to participate in activities of interest without instability. Patient will safely ambulate for unlimited distances without increase in left knee discomfort. Patient will safely ambulate up and down flight of steps modified independently with reciprocal pattern. Plan: Continue POC in outpatient. Patient will be seen 2-3 times per week for 6-8 weeks for therapeutic exercise, gait training, therapeutic activity, manual therapy, patient education, and modalities as needed for pain control. documented in this encounter [facility] 01-04-2024 History of Present illness Narrative Physical Therapy Physical Therapy Daily Visit Patient Name: Marcela Santiago Today's Date: 01/04/2024 Visit: 8 Time In: 10:00 am Time Out: 10:55 am Sup time: 40 min Total time: 55 min Subjective: Patient was seen today for follow up visit S/P Left TKA (DOS: 12/15/2023) Pain: mild entering no pain pill today. Objective: Gait: enters mod ind with FWW decreased leticia, step height and length solange. Treatment: Therapeutic Activity: prn Therapeutic Exercise: ROM, flexibility, strength per SHIRA grid, 30 min sup, 35 total due to bike. Min demo and verbal cues for correct technique including TKE with step ups. Manual Therapy: PROM, stretching end range, massage x 10 min total, good tolerance but went light on end range stretching today. Gait: re-add prn Assessment: Patient is demonstrating pain and weakness of left knee and decreased ROM secondary to recent TKA surgery. Physical therapy intervention is appropriate to improve mobility and safety. Pt tolerated all fairly well including new/added SHIRA. ROM end of session 3-106 supine following SHIRA, MT. Fci: (4-8 weeks) Patient will demonstrate 0-120 degrees of active left knee flexion. Patient will demonstrate 4/5 or better strength of left knee flexion and extension in order to participate in activities of interest without instability. Patient will safely ambulate for unlimited distances without increase in left knee discomfort. Patient will safely ambulate up and down flight of steps modified independently with reciprocal pattern. Plan: Continue POC in outpatient. Patient will be seen 2-3 times per week for 6-8 weeks for therapeutic exercise, gait training, therapeutic activity, manual therapy, patient education, and modalities as needed for pain control. documented in this encounter [facility] 10-27-2023 History of Present illness Narrative Subjective Marcela Santiago is a 68 y.o. female who was referred by Dr. Rodriguez for a diagnosis of atrial fibrillation. The patient has history of hypertension on medical therapy and was scheduled to have knee surgery by Dr. Abreu at [facility]. An EKG that was done at the time of the surgery revealed normal sinus rhythm with a heart rate of 65 bpm. No abnormalities were noted. The computer read the EKG as atrial fibrillation. The rhythm strip was forwarded to me from the time she was on monitor on October 06, 2023 demonstrated normal sinus rhythm with a heart rate of 69 bpm. The surgery was canceled and the patient was sent for cardiac evaluation. She is scheduled to have an echocardiogram and already had 30-day event monitor on board. The patient denies any symptoms of palpitations unless she is nervous and has no history of cardiac arrhythmias and has no previous cardiac investigations. She has no family history of cardiac disease. She is nondiabetic non-smoker with no lung disease or thyroid disease. She has no previous history of pulmonary embolism. She is with morbid obesity. Denies any palpitations with exertion, no chest pain on exertion and no dyspnea on exertion. Review of system otherwise was normal physical examination was only remarkable for morbid obesity. EKG in the office revealed normal sinus rhythm and normal ECG. Assessment/recommendations: 1-patient was wrongfully diagnosed with atrial fibrillation, her twelve-lead EKG from outside facility revealed sinus rhythm however in lead V1 there are flutter waves that are caused by artifact. The patient has no indication of cardiac arrhythmias. No further cardiac testing is needed. 2-patient need cardiac clearance for orthopedic surgery and she is cleared without further cardiac testing 3-essential hypertension, currently under control on medical therapy. 4-morbid obesity, advised patient to lose weight with lifestyle modifications. Patient does not need cardiac follow-up Chief Complaint Atrial Fibrillation Atrial Fibrillation Symptoms include dizziness. Past medical history includes atrial fibrillation. Review of Systems Neurological: Positive for dizziness. All other systems reviewed and are negative. Vitals: 10/27/23 0937 10/27/23 0938 BP: 128/64 118/60 BP Location: Left arm Right arm Patient Position: Sitting Sitting Pulse: 75 75 Weight: 102 kg (225 lb) Height: 1.575 m (5' 2 ) EKG done in office today Objective Physical Exam Constitutional: Appearance: Normal appearance. HENT: Nose: Nose normal. Neck: Vascular: No carotid bruit. Cardiovascular: Rate and Rhythm: Normal rate. Pulses: Normal pulses. Heart sounds: Normal heart sounds. Pulmonary: Effort: Pulmonary effort is normal. Abdominal: General: Bowel sounds are normal. Palpations: Abdomen is soft. Musculoskeletal: General: Normal range of motion. Cervical back: Normal range of motion. Right lower leg: No edema. Left lower leg: No edema. Skin: General: Skin is warm and dry. Neurological: General: No focal deficit present. Mental Status: She is alert. Psychiatric: Mood and Affect: Mood normal. Behavior: Behavior normal. Thought Content: Thought content normal. Judgment: Judgment normal. Allergies Patient has no known allergies. Current Medications Current Outpatient Medications: acetaminophen (Tylenol) 500 mg tablet, Take 1 tablet (500 mg) by mouth every 6 hours if needed., Disp: , Rfl: alendronate (Fosamax) 70 mg tablet, Take 1 tablet (70 mg) by mouth once a week., Disp: , Rfl: busPIRone (Buspar) 5 mg tablet, Take 1 tablet (5 mg) by mouth once daily., Disp: , Rfl: cephalexin (Keflex) 500 mg capsule, Take 1 capsule (500 mg) by mouth 4 times a day., Disp: , Rfl: cholecalciferol (Vitamin D-3) 5,000 Units tablet, Take 1 tablet (5,000 Units) by mouth once daily., Disp: , Rfl: ferrous sulfate 325 (65 Fe) MG EC tablet, Take 1 tablet by mouth once daily with breakfast., Disp: , Rfl: lisinopril 20 mg tablet, Take 1 tablet (20 mg) by mouth once daily., Disp: , Rfl: lisinopriL-hydrochlorothiazide 20-12.5 mg tablet, Take 1 tablet by mouth once daily., Disp: , Rfl: Marcela Santiago is clear for surgery from a cardiac standpoint Assessment/Plan 1. Atrial fibrillation by electrocardiogram (Multi) 2. Intermittent atrial fibrillation (Multi) Scribe Attestation By signing my name below, I, Jody Guevara SHORE Scribe attest that this documentation has been prepared under the direction and in the presence of Laura Caceres MD. Provider Attestation - Scribe documentation All medical record entries made by the Scribe were at my direction and personally dictated by me. I have reviewed the chart and agree that the record accurately reflects my personal performance of the history, physical exam, discussion and plan. documented in this encounter [facility] Work Phone: 10-27-2023 Instructions Jody Solitario LPN - 10/27/2023 9:30 AM EDT Please bring all medicines, vitamins, and herbal supplements with you when you come to the office. Prescriptions will not be filled unless you are compliant with your follow up appointments or have a follow up appointment scheduled as per instruction of your physician. Refills should be requested at the time of your visit. documented in this encounter [facility] Work Phone: 06-22-2023 History of Present illness Narrative Associated Order(s): L Inj/Asp: L [...] treatment(s) included tried aspirin, ice, icyhot, xrays Servando Noms 03/25/20, Depo Medrol injection 03/25/20, TYL, brace, Depo Medrol injection 04/08/2020, tried voltaren gel. Using freeze gel, Taking TYL 1000 daily, XR [facility] ortho 06/08/23, depo injx 06/08/23 MEDICATION: Current [...] and lateral of the left knee demonstrate [id number] in the medial compartment of the left [...] Abreu/trina Abreu D.O. documented in this encounter [facility] 08-17-2022 Evaluation note Encounter Date Diagnosis Assessment [...] until Wednesday, Acute bronchitis material was printed [employer] Other 01-13-2023 Evaluation note* Encounter Date Diagnosis Assessment Notes Treatment Notes Treatment Clinical Notes May, Other Patient requ esting other scans in office, referred to ER for further evaluation [employer] Other Evaluation + Plan note No data [facility] this [facility] Arthritis of left knee- Primary Chronic pain of left knee documented in this encounter [facility] Healthcare[facility] note* Diagnosis Atrial fibrillation by electrocardiogram (Multi) Intermittent atrial fibrillation (Multi) Atrial fibrillation documented in this encounter [facility] Work Phone: Evaluation note* Diagnosis Acute postoperative pain of left knee- Primary Arthritis of left knee Lumbar paraspinal muscle spasm Other symptoms referable to back Acute right-sided low back pain with right-sided sciatica documented in this encounter [facility] HealthcareEvaluation note* Diagnosis Acute postoperative pain of left knee- Primary Arthritis of left knee documented in this encounter [facility] HealthcareEvaluation note* Diagnosis Acute postoperative pain of left knee- Primary Arthritis of left knee Hallux rigidus of right foot- Primary Metatarsal deformity, right Acquired deformity of right toe Plantar plate injury, right, initial encounter documented in this encounter [facility] HealthcareEvaluation note* Diagnosis Acute postoperative pain of left knee- Primary Arthritis of left knee documented in this encounter [facility] note* Diagnosis Primary hypertension (CMS/HCC)- Primary Unspecified essential hypertension Encounter for screening mammogram for malignant neoplasm of breast Lesion of sciatic nerve, unspecified laterality Deformity of nail bed Trigger finger of right thumb Ganglion cyst of flexor tendon sheath of finger, right Vitamin D deficiency Osteoporosis, unspecified osteoporosis type, unspecified pathological fracture presence (CMS/HCC) Anxiety Anxiety state, unspecified Pre-operative clearance- Primary Unspecified pre-operative examination Acute non-recurrent maxillary sinusitis Atrial fibrillation by electrocardiogram (CMS/HCC)- Primary Morbid (severe) obesity due to excess calories (E66.01) Intermittent atrial fibrillation (CMS/HCC) Atrial fibrillation Arthritis of left knee- Primary Preoperative clearance Unspecified pre-operative examination Acute postoperative pain of left knee- Primary Arthritis of left knee Hallux rigidus of right foot- Primary Metatarsal deformity, right Acquired deformity of right toe Plantar plate injury, right, initial encounter documented in this encounter [facility]* Diagnosis Primary hypertension ([facility])- Primary Unspecified essential hypertension Encounter for screening mammogram for malignant neoplasm of breast Lesion of sciatic nerve, unspecified laterality Deformity of nail bed Trigger finger of right thumb Ganglion cyst of flexor tendon sheath of finger, right Vitamin D deficiency Osteoporosis, unspecified osteoporosis type, unspecified pathological fracture presence ([facility]) Anxiety Anxiety state, unspecified Pre-operative clearance- Primary Unspecified pre-operative examination Acute non-recurrent maxillary sinusitis Atrial fibrillation by electrocardiogram ([facility])- Primary Morbid (severe) obesity due to excess calories (E66.01) Intermittent atrial fibrillation ([facility]) Atrial fibrillation Arthritis of left knee- Primary Preoperative clearance Unspecified pre-operative examination Status post left knee replacement- Primary Hallux rigidus of right foot- Primary Metatarsal deformity, right Acquired deformity of right toe Plantar plate injury, right, initial encounter documented in this encounter [facility]* Diagnosis Primary hypertension ([facility])- Primary Unspecified essential hypertension Encounter for screening mammogram for malignant neoplasm of breast Lesion of sciatic nerve, unspecified laterality Deformity of nail bed Trigger finger of right thumb Ganglion cyst of flexor tendon sheath of finger, right Vitamin D deficiency Osteoporosis, unspecified osteoporosis type, unspecified pathological fracture presence ([facility]) Anxiety Anxiety state, unspecified Pre-operative clearance- Primary Unspecified pre-operative examination Acute non-recurrent maxillary sinusitis Atrial fibrillation by electrocardiogram ([facility] [place] Primary Morbid (severe) obesity due to excess calories (E66.01) Intermittent atrial fibrillation ([facility]) Atrial fibrillation Arthritis of left knee- Primary Preoperative clearance Unspecified pre-operative examination Hallux rigidus of right foot- Primary Metatarsal deformity, right Acquired deformity of right toe Plantar plate injury, right, initial encounter documented in this encounter [facility]Evaluation note* Diagnosis Primary hypertension ([facility])- Primary Unspecified essential hypertension Encounter for screening mammogram for malignant neoplasm of breast Lesion of sciatic nerve, unspecified laterality Deformity of nail bed Trigger finger of right thumb Ganglion cyst of flexor tendon sheath of finger, right Vitamin D deficiency Osteoporosis, unspecified osteoporosis type, unspecified pathological fracture presence ([facility]) Anxiety Anxiety state, unspecified Pre-operative clearance- Primary Unspecified pre-operative examination Acute non-recurrent maxillary sinusitis Atrial fibrillation by electrocardiogram ([facility])- Primary Morbid (severe) obesity due to excess calories (E66.01) Intermittent atrial fibrillation (CMS/HCC) Atrial fibrillation Arthritis of left knee- Primary Preoperative clearance Unspecified pre-operative examination Acute postoperative pain of left knee- Primary Arthritis of left knee documented in this encounter [facility] HealthcareEvaluation note* Diagnosis Primary hypertension (CMS/HCC)- Primary Unspecified essential hypertension Encounter for screening mammogram for malignant neoplasm of breast Lesion of sciatic nerve, unspecified laterality Deformity of nail bed Trigger finger of right thumb Ganglion cyst of flexor tendon sheath of finger, right Vitamin D deficiency Osteoporosis, unspecified osteoporosis type, unspecified pathological fracture presence (CMS/HCC) Anxiety Anxiety state, unspecified Pre-operative clearance- Primary Unspecified pre-operative examination Acute non-recurrent maxillary sinusitis Atrial fibrillation by electrocardiogram ([facility])- Primary Morbid (severe) obesity due to excess calories (E66.01) Intermittent atrial fibrillation (CMS/HCC) Atrial fibrillation Arthritis of left knee- Primary Preoperative clearance Unspecified pre-operative examination Acute postoperative pain of left knee- Primary documented in this encounter [facility] HealthcareEvaluation note* Diagnosis Primary hypertension (CMS/HCC)- Primary Unspecified essential hypertension Encounter for screening mammogram for malignant neoplasm of breast Lesion of sciatic nerve, unspecified laterality Deformity of nail bed Trigger finger of right thumb Ganglion cyst of flexor tendon sheath of finger, right Vitamin D deficiency Osteoporosis, unspecified osteoporosis type, unspecified pathological fracture presence ([facility]) Anxiety Anxiety state, unspecified Pre-operative clearance- Primary Unspecified pre-operative examination Acute non-recurrent maxillary sinusitis Atrial fibrillation by electrocardiogram ([facility])- Primary Morbid (severe) obesity due to excess calories (E66.01) Intermittent atrial fibrillation ([facility]) Atrial fibrillation Arthritis of left knee- Primary Preoperative clearance Unspecified pre-operative examination Acute postoperative pain of left knee- Primary Hallux rigidus of right foot- Primary Metatarsal deformity, right Acquired deformity of right toe Plantar plate injury, right, initial encounter documented in this encounter [facility]Evaluation note* Diagnosis Primary hypertension (CMS/HCC)- Primary Unspecified essential hypertension Encounter for screening mammogram for malignant neoplasm of breast Lesion of sciatic nerve, unspecified laterality Deformity of nail bed Trigger finger of right thumb Ganglion cyst of flexor tendon sheath of finger, right Vitamin D deficiency Osteoporosis, unspecified osteoporosis type, unspecified pathological fracture presence ([facility]) Anxiety Anxiety state, unspecified Pre-operative clearance- Primary Unspecified pre-operative examination Acute non-recurrent maxillary sinusitis Atrial fibrillation by electrocardiogram ([facility])- Primary Morbid (severe) obesity due to excess calories (E66.01) Intermittent atrial fibrillation (CMS/HCC) Atrial fibrillation Arthritis of left knee- Primary Preoperative clearance Unspecified pre-operative examination Acute postoperative pain of left knee- Primary Arthritis of left knee Hallux rigidus of right foot- Primary Metatarsal deformity, right Acquired deformity of right toe Plantar plate injury, right, initial encounter documented in this encounter [facility]* Diagnosis Primary hypertension ([facility]/HCC)- Primary Unspecified essential hypertension Encounter for screening mammogram for malignant neoplasm of breast Lesion of sciatic nerve, unspecified laterality Deformity of nail bed Trigger finger of right thumb Ganglion cyst of flexor tendon sheath of finger, right Vitamin D deficiency Osteoporosis, unspecified osteoporosis type, unspecified pathological fracture presence (CMS/HCC) Anxiety Anxiety state, unspecified Pre-operative clearance- Primary Unspecified pre-operative examination Acute non-recurrent maxillary sinusitis Atrial fibrillation by electrocardiogram ([facility])- Primary Morbid (severe) obesity due to excess calories (E66.01) Intermittent atrial fibrillation (CMS/[facility]) Atrial fibrillation Arthritis of left knee- Primary Preoperative clearance Unspecified pre-operative examination Hallux rigidus of right foot- Primary Metatarsal deformity, right Acquired deformity of right toe Plantar plate injury, right, initial encounter documented in this encounter [facility]* Diagnosis Primary hypertension ([facility]/HCC)- Primary Unspecified essential hypertension Encounter for screening mammogram for malignant neoplasm of breast Lesion of sciatic nerve, unspecified laterality Deformity of nail bed Trigger finger of right thumb Ganglion cyst of flexor tendon sheath of finger, right Vitamin D deficiency Osteoporosis, unspecified osteoporosis type, unspecified pathological fracture presence ([facility]) Anxiety Anxiety state, unspecified Pre-operative clearance- Primary Unspecified pre-operative examination Acute non-recurrent maxillary sinusitis Atrial fibrillation by electrocardiogram ([facility])- Primary Morbid (severe) obesity due to excess calories (E66.01) Intermittent atrial fibrillation (CMS/HCC) Atrial fibrillation Arthritis of left knee- Primary Preoperative clearance Unspecified pre-operative examination Acute postoperative pain of left knee- Primary documented in this encounter [facility]* Diagnosis Primary hypertension (CMS/HCC)- Primary Unspecified essential hypertension Encounter for screening mammogram for malignant neoplasm of breast Lesion of sciatic nerve, unspecified laterality Deformity of nail bed Trigger finger of right thumb Ganglion cyst of flexor tendon sheath of finger, right Vitamin D deficiency Osteoporosis, unspecified osteoporosis type, unspecified pathological fracture presence (CMS/HCC) Anxiety Anxiety state, unspecified Pre-operative clearance- Primary Unspecified pre-operative examination Acute non-recurrent maxillary sinusitis Atrial fibrillation by electrocardiogram ([facility]/HCC)- Primary Morbid (severe) obesity due to excess calories (E66.01) Intermittent atrial fibrillation (CMS/HCC) Atrial fibrillation Arthritis of left knee- Primary Preoperative clearance Unspecified pre-operative examination Localized swelling of left foot- Primary Arthritis of left knee Primary hypertension (CMS/HCC) Unspecified essential hypertension Localized swelling of left lower leg documented in this encounter [facility]* Diagnosis Primary hypertension (CMS/HCC)- Primary Unspecified essential hypertension Encounter for screening mammogram for malignant neoplasm of breast Lesion of sciatic nerve, unspecified laterality Deformity of nail bed Trigger finger of right thumb Ganglion cyst of flexor tendon sheath of finger, right Vitamin D deficiency Osteoporosis, unspecified osteoporosis type, unspecified pathological fracture presence (CMS/HCC) Anxiety Anxiety state, unspecified Pre-operative clearance- Primary Unspecified pre-operative examination Acute non-recurrent maxillary sinusitis Atrial fibrillation by electrocardiogram ([facility])- Primary Morbid (severe) obesity due to excess calories (E66.01) Intermittent atrial fibrillation (CMS/HCC) Atrial fibrillation Arthritis of left knee- Primary Preoperative clearance Unspecified pre-operative examination Localized swelling of left foot- Primary Arthritis of left knee Primary hypertension (CMS/HCC) Unspecified essential hypertension Localized swelling of left lower leg Hallux rigidus of right foot- Primary Metatarsal deformity, right Acquired deformity of right toe Plantar plate injury, right, initial encounter Onychomycosis Dermatophytosis of nail Toe pain, left Pain in soft tissues of limb Toe pain, right Pain in soft tissues of limb documented in this encounter [facility]* Diagnosis Acute postoperative pain of left knee- Primary documented in this encounter [facility]* Diagnosis Acute postoperative pain of left knee- Primary documented in this encounter [facility]* Diagnosis Primary hypertension (CMS/HCC)- Primary Unspecified essential hypertension Encounter for screening mammogram for malignant neoplasm of breast Lesion of sciatic nerve, unspecified laterality Deformity of nail bed Trigger finger of right thumb Ganglion cyst of flexor tendon sheath of finger, right Vitamin D deficiency Osteoporosis, unspecified osteoporosis type, unspecified pathological fracture presence (CMS/HCC) Anxiety Anxiety state, unspecified Pre-operative clearance- Primary Unspecified pre-operative examination Acute non-recurrent maxillary sinusitis Atrial fibrillation by electrocardiogram ([facility])- Primary Morbid (severe) obesity due to excess calories (E66.01) Intermittent atrial fibrillation ([facility]) Atrial fibrillation Arthritis of left knee- Primary Preoperative clearance Unspecified pre-operative examination Localized swelling of left foot- Primary Arthritis of left knee Primary hypertension ([facility]) Unspecified essential hypertension Localized swelling of left lower leg Preoperative clearance- Primary Unspecified pre-operative examination Vitamin D deficiency documented in this encounter [facility]* Diagnosis Acute postoperative pain of left knee- Primary documented in this encounter [facility]* Diagnosis Acute postoperative pain of left knee- Primary documented in this encounter [facility]* Diagnosis Acute postoperative pain of left knee- Primary Arthritis of left knee documented in this encounter [facility]* Diagnosis Acute postoperative pain of left knee- Primary Arthritis of left knee Arthritis of left knee Status post left knee replacement documented in this encounter [facility]* Diagnosis Arthritis of left knee Status post left knee replacement documented in this encounter [facility]* Diagnosis Acute postoperative pain of left knee- Primary Arthritis of left knee Status post left knee replacement documented in this encounter [facility]* Diagnosis Acute postoperative pain of left knee- Primary Arthritis of left knee documented in this encounter [facility]* Diagnosis Acute postoperative pain of left knee- Primary Arthritis of left knee Onychomycosis- Primary Dermatophytosis of nail Toe pain, left Pain in soft tissues of limb Toe pain, right Pain in soft tissues of limb Hallux rigidus of right foot documented in this encounter [facility]* Diagnosis Metatarsal deformity, right- Primary Onychomycosis Dermatophytosis of nail Toe pain, left Pain in soft tissues of limb Toe pain, right Pain in soft tissues of limb Hallux rigidus of right foot Acquired deformity of right toe documented in this encounter [facility]* Diagnosis Acute postoperative pain of left knee- Primary Onychomycosis- Primary Dermatophytosis of nail Toe pain, left Pain in soft tissues of limb Toe pain, right Pain in soft tissues of limb Hallux rigidus of right foot documented in this encounter [facility]* Diagnosis Primary hypertension (CMS/HCC)- Primary Unspecified essential hypertension Encounter for screening mammogram for malignant neoplasm of breast Lesion of sciatic nerve, unspecified laterality Deformity of nail bed Trigger finger of right thumb Ganglion cyst of flexor tendon sheath of finger, right Vitamin D deficiency Osteoporosis, unspecified osteoporosis type, unspecified pathological fracture presence (CMS/HCC) Anxiety Anxiety state, unspecified Pre-operative clearance- Primary Unspecified pre-operative examination Acute non-recurrent maxillary sinusitis Atrial fibrillation by electrocardiogram (CMS/HCC)- Primary Morbid (severe) obesity due to excess calories (E66.01) Intermittent atrial fibrillation (CMS/HCC) Atrial fibrillation Arthritis of left knee- Primary Preoperative clearance Unspecified pre-operative examination Localized swelling of left foot- Primary Arthritis of left knee Primary hypertension (CMS/HCC) Unspecified essential hypertension Localized swelling of left lower leg Preoperative clearance- Primary Unspecified pre-operative examination Vitamin D deficiency Hallux rigidus of right foot- Primary Metatarsal deformity, right Acquired deformity of right toe Plantar plate injury, right, initial encounter Acute deep vein thrombosis (DVT) of popliteal vein of right lower extremity (CMS/HCC) documented in this encounter [facility] Narrative - Reported* Type Description Date Medical History hx of kidney stones Medical History HTN Medical History osteoporosis Medical History arthritis Surgical History 2 D&C Surgical History heart catherization Surgical History appendectomy Surgical History arthroscopic knee surgery right Surgical History cholecystectomy Hospitalization History see surgical hx [employer] Other Hospital Discharge instructions No data available for this section [facility] Consultation (Routine) - Authorized Specialty Diagnoses / Procedures Referred By Contac t Referred To Contact Cardiology Diagnoses Intermittent atrial fibrillation (Multi) Procedures Follow Up In Cardiology Laura Caceres MD 3 [facility] 2, [address] [address] Laura Caceres MD 703 [facility] 2, [address] [address] Referral ID Status Reason Start Date Expiration Date V isits Requested Visits Authorized [id number] Authorized 10/27/2023 10/26/2024 1 1 * Cardiovascular (Routine) - Authorized Specialty Diagnoses / Procedures Referred By Contac t Referred To Contact Diagnoses Intermittent atrial fibrillation (Multi) Procedures ECG 12 Lead Laura Caceres MD [address] [facility], [address] [place] [address] Referral ID Status Reason Start Date Expiration Date V isits Requested Visits Authorized [id number] Authorized 10/27/2023 10/26/2024 1 1 [facility] Work Phone: Reason for visit Narrative* Rehabilitation - Outpatient (Routine) - Authorized Specialty Diagnoses / Procedures Referred By Contac t Referred To Contact Physical Therapy Diagnoses Presence of left artificial knee joint Procedures TREATMENT Kalia Packer, [employer] [address] [place] [address] Phone: tel: fax: Ni Goins, PT [address] [place] [address] Phone: tel: fax: Referral ID Status Reason Start Date Expiration Date V isits Requested Visits Authorized [id number] Authorized 01/04/2024 07/02/2024 40 30 [facility] Summary Purpose Family History No Family History Records FoundNo Family History Records FoundNo Family History Records FoundNo Family History Records FoundNo Family History Records Found Advance Directives No Advanced Directives Records FoundNo Advanced Directives Records FoundNo Advanced Directives Records FoundNo Advanced Directives Records FoundNo Advanced Directives Records Found Reason for Referral Specialty Diagnoses / Procedures Referred By Contac t Referred To Contact Orthopaedic Surgery Diagnoses Arthritis of left knee Procedures L Inj/Asp: L knee Briana Abreu, [address] [facility] [address] [place] [address] Referral ID Status Reason Start Date Expiration Date V isits Requested Visits Authorized [id number] Pending Review 06/22/2023 12/19/2023 1 1 Additional Source Comments INFORMATION SOURCE (unrecogn ized section and content) DATE CREATED AUTHOR 09/26/2021 Ryan Eaton [facility] DATE CREATED AUTHOR AUTHOR'S ORGANIZ ATION 08/03/2022 [facility] DATE CREATED AUTHOR AUTHOR'S ORGANIZ ATION 10/28/2023 [facility] DATE CREATED AUTHOR AUTHOR'S ORGANIZ ATION 12/17/2023 [facility] DATE CREATED AUTHOR AUTHOR'S ORGANIZ ATION 04/26/2024 [facility] dical Specialists EPIC REASON FOR VISIT (unrecogniz ed section and content) Reason Comments Follow-up Reason Comments Atrial Fibrillation Referral from Dr. Salmon Specialty Diagnoses / Procedures Referred By Contac t Referred To Contact Diagnoses Intermittent atrial fibrillation (Multi) Procedures ECG 12 Lead Laura Caceres MD [address] [facility], [facility] [address] [place] [address] Referral ID Status Reason Start Date Expiration Date V isits Requested Visits Authorized [id number] Authorized 10/27/2023 10/26/2024 1 1 Specialty Diagnoses / Procedures Referred By Contac Referred To Contact Physical Therapy Diagnoses Presence of left artificial knee joint Procedures TREATMENT Kalia Packer, TRACK HELPER [address] [facility] [place] [address] Ni Goins, PT [address] [place] [address] Referral ID Status Reason Start Date Expiration Date V isits Requested Visits Authorized [id number] Authorized 01/04/2024 07/02/2024 40 30 Reason Comments Follow-up Reason Comments Foot Pain Rt ft pain/w xray Reason Comments Foot Pain Surgery talk Reason Comments Hypertension Reason Comments Toenail Care Non dm nail care Consent Or Instructions Pre op- rt Reason Comments surgical clearance Surgery with dr sapphire almendarez Referral ID Status Reason Start Date Expiration Date V isits Requested Visits Authorized [id number] Authorized 01/04/2024 07/02/2024 40 40 Reason Comments Toenail Care Non dm nail care Reason Comments Post-op 1st post- rt Care Teams (unrecognized sec tion and content) Manager Web Application Relationship Specialty Start Date End Date Feliberto Rodriguez MD [address] [place] [address] [place] [address] PCP - General Family Medicine 09/28/22 Manager Web Application Relationship Specialty Start Date End Date Feliberto Rodriguez MD [address] [place] [address] [place] [address] PCP - General Family Medicine 10/13/23 Manager Web Application Relationship Specialty Start Date End Date Feliberto Rodriguez MD [address] [place] [address] [place] [address] PCP - General Family Medicine 09/28/22 Manager Web Application Relationship Specialty Start Date End Date Feliberto Rodriguez MD [address] [place] [address] [place] [address] PCP - General Family Medicine 09/28/22 Manager Web Application Relationship Specialty Start Date End Date Feliberto Rodriguez MD [address] [place] [address] [place] [address] PCP - General Family Medicine 09/28/22 Manager Web Application Relationship Specialty Start Date End Date Feliberto Rodriguez MD [address] [place] [address] [place] [address] PCP - General Family Medicine 09/28/22 Manager Web Application Relationship Specialty Start Date End Date Feliberto Rodriguez MD [address] [place] [address] [place] [address] PCP - General Family Medicine 09/28/22 Manager Web Application Relationship Specialty Start Date End Date Feliberto Rodriguez MD [address] [place] [address] [place] [address] PCP - General Family Medicine 09/28/22 Manager Web Application Relationship Specialty Start Date End Date Feliberto Rodriguez MD [address] [place] [address] [place] [address] PCP - General Family Medicine 09/28/22 Manager Web Application Relationship Specialty Start Date End Date Feliberto Rodriguez MD [address] [place] [address] [place] [address] PCP - General Family Medicine 09/28/22 Manager Web Application Relationship Specialty Start Date End Date Feliberto Rodriguez MD [address] [place] [address] [place] [address] PCP - General Family Medicine 09/28/22 Manager Web Application Relationship Specialty Start Date End Date Feliberto Rodriguez MD [address] [place] [address] [place] [address] PCP - General Family Medicine 09/28/22 Manager Web Application Relationship Specialty Start Date End Date Feliberto Rodriguez MD [address] [place] [address] [place] [address] PCP - General Family Medicine 09/28/22 Manager Web Application Relationship Specialty Start Date End Date Feliberto Rodriguez MD [address] [place] [address] [place] [address] PCP - General Family Medicine 09/28/22 Manager Web Application Relationship Specialty Start Date End Date Feliberto Rodriguez MD [address] [place] [address] [place] [address] PCP - General Family Medicine 09/28/22 Manager Web Application Relationship Specialty Start Date End Date Feliberto Rodriguez MD [address] [place] [address] [place] [address] PCP - General Family Medicine 09/28/22 Manager Web Application Relationship Specialty Start Date End Date Feliberto Rodriguez MD [address] [place] [address] [place] [address] PCP - General Family Medicine 09/28/22 Manager Web Application Relationship Specialty Start Date End Date Feliberto Rodriguez MD [address] [place] [address] [place] [address] PCP - General Family Medicine 09/28/22 Manager Web Application Relationship Specialty Start Date End Date Feliberto Rodriguez MD [address] [facility] [address] [place] [address] PCP - General Family Medicine 09/28/22 Manager Web Application Relationship Specialty Start Date End Date Feliberto Rodriguez MD [address] [facility] [address] [place] [address] PCP - General Family Medicine 09/28/22 Manager Web Application Relationship Specialty Start Date End Date Feliberto Rodriguez MD [address] [facility] [address] [place] [address] PCP - General Family Medicine 09/28/22 Manager Web Application Relationship Specialty Start Date End Date Feliberto Rodriguez MD [address] [facility] [address] [place] [address] PCP - General Family Medicine 09/28/22 Manager Web Application Relationship Specialty Start Date End Date Feliberto Rodriguez MD [address] [facility] [address] [place] [address] PCP - General Family Medicine 09/28/22 Manager Web Application Relationship Specialty Start Date End Date Feliberto Rodriguez MD [address] [facility] [address] [place] [address] PCP - General Family Medicine 09/28/22 Manager Web Application Relationship Specialty Start Date End Date Feliberto Rodriguez MD [address] [facility] [address] [place] [address] PCP - General Family Medicine 09/28/22 Manager Web Application Relationship Specialty Start Date End Date Feliberto Rodriguez MD [address] [facility] [address] [place] [address] PCP - General Family Medicine 09/28/22 Manager Web Application Relationship Specialty Start Date End Date Feliberto Rodriguez MD [address] [facility] [address] [place] [address] PCP - General Family Medicine 09/28/22 Manager Web Application Relationship Specialty Start Date End Date Feliberto Rodriguez MD [address] [facility] [address] [place] [address] PCP - General Family Medicine 09/28/22 Manager Web Application Relationship Specialty Start Date End Date Feliberto Rodriguez MD [address] [facility] [address] [place] [address] PCP - General Family Medicine 09/28/22 Manager Web Application Relationship Specialty Start Date End Date Feliberto Rodriguez MD [address] [facility] [address] [place] [address] PCP - General Family Medicine 09/28/22 Manager Web Application Relationship Specialty Start Date End Date Feliberto Rodriguez MD [address] [facility] [address] [place] [address] PCP - General Family Medicine 09/28/22 Manager Web Application Relationship Specialty Start Date End Date Feliberto Rodriguez MD [address] [facility] [address] [place] [address] PCP - General Family Medicine 09/28/22 Manager Web Application Relationship Specialty Start Date End Date Feliberto Rodriguez MD [address] [facility] [address] [place] [address] PCP - General Family Medicine 09/28/22 Manager Web Application Relationship Specialty Start Date End Date Feliberto Rodriguez MD [address] [facility] [address] [place] [address] PCP - General Family Medicine 09/28/22 Manager Web Application Relationship Specialty Start Date End Date Feliberto Rodriguez MD [address] [facility] [address] [place] [address] PCP - General Family Medicine 09/28/22 Manager Web Application Relationship Specialty Start Date End Date Feliberto Rodriguez MD [address] [facility] [address] [place] [address] PCP - General Family Medicine 09/28/22 Manager Web Application Relationship Specialty Start Date End Date Feliberto Rodriguez MD [address] [facility] [address] [place] [address] PCP - General Family Medicine 09/28/22 FOR [...] BE BASED ON THE PRIMARY CLINICAL RECORDS. [employer] [facility]. provides no warranty or guarantee of the accuracy or completeness of information in this document.
--- NOTE | 2024-05-11 13:05 | US_ITS ---
The [address] [address] Patient Name: IAN MONACO MRN: [id number] date: 1955 Sex: F Assigned Patient Location: US Current Patient Location: US Accession/Order Number: [id number] Exam Date: 05/11/2024 13:08 Report Date: 05/11/2024 13:50 At the request of: ALEN ALEXANDER Procedure: US venous doppler LE RT EXAM: US venous doppler LE RT HISTORY: Right Lower Extremity Swelling COMPARISON: None. TECHNIQUE: Multiple sonographic images of the deep veins of the right lower extremity were obtained, supplemented with Doppler. FINDINGS: Veins of the right lower extremity are fairly well-visualized the groin to the mid calf. No filling defect is identified in the deep veins to indicate a thrombus. There is normal compression and augmentation to flow throughout. US/US venous doppler LE RT IMPRESSION: There is no direct or indirect evidence of deep vein thrombosis in the right lower extremity at this time. Electronically authenticated by: CARLA PEDRAZA Date: 05/11/2024 13:50
== END 2024-05-11 13:00 | disposition home or self-care (01) ==
LOC: US 13:00
PROVIDERS: PCP Family Medicine
DX: I82.431 Acute embolism and thrombosis of right popliteal vein (principal)
CPT/HCPCS: 93971